=== PATIENT | male | born 1980 | race Two or more races ===

== ENCOUNTER 2025-05-21 20:36 | Inpatient (IN) | payer OTHER ==
[~2025-05-21] VITALS: Ht 172.7 cm; Wt 132.2 kg
--- NOTE | 2025-05-21 20:47 | ECG ---
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
[2025-05-21 21:15] LABS: Hematocrit 47.0 % (41.0-53.0); Hemoglobin 15.9 g/dL (13.5-17.5); Mean Corpuscular Hemoglobin 29.3 pg (28.0-32.0); Mean Corpuscular Volume 86.6 fL (80.0-100.0); Nucleated Red Blood Cells % 0.1 %
[2025-05-21 21:24] LABS: Alanine Aminotransferase 15 U/L (7-40); Albumin 4.2 g/dL (3.2-4.8); Alkaline Phosphatase 110 U/L (46-116); Anion Gap 13 (5-15); BUN/Creatinine Ratio 6.3 (10.0-20.0); Bilirubin, Total 0.4 mg/dL (0.2-1.0); Carbon Dioxide 21 mmol/L (20-31); Sodium 142 mmol/L (136-145); Total Protein 7.5 g/dL (5.7-8.2)
[2025-05-21 21:28] LABS: INR 1.03 (0.9-1.15); Prothrombin Time 10.9 sec (9.3-11.8)
[2025-05-21 21:31] LABS: Blood Urea Nitrogen 6 mg/dL (9-23); Calcium 10.6 mg/dL (8.7-10.4); Chloride 108 mmol/L (98-107); Glucose 111 mg/dL (74-106); Potassium 3.4 mmol/L (3.5-5.1)
--- NOTE | 2025-05-21 21:34 | ED.PDOC ---
GI ASSESSMENT HPI Comments 44-year-old male who came to ER via EMS for abdominal pain. Patient states about an hour prior to arrival, developed sudden-onset epigastric/ upper abdominal pain radiating to his back area, 10/10 intensity. Patient had Colonoscopy yesterday REVIEW OF SYSTEMS: General: No fever, no chills, or fatigue HEENT: No sore throat, no earache, no congestion, no neck pain. Cardiac: No chest pain. No palpitations. Lungs: No shortness of breath, no cough. GI: No nausea, no vomiting, no diarrhea, no constipation, (+) abdominal pain : No dysuria, frequency, or urgency. No hematuria. Musculoskeletal: No joint pain , no joint swelling, no extremity edema. (+) back pain Skin: No rash, no itching. Neuro: No headache, no dizziness, no weakness PHYSICAL EXAM: General: Awake, alert and oriented. Positive acute distress Skin: Skin in warm, dry and intact without rashes or lesions. HEENT: The head is normocephalic and atraumatic. Conjunctivae are clear without exudates or hemorrhage. Sclera is non-icteric. Neck: Normal range of motion. No JVD. Cardiac: Regular rate Respiratory: No signs of respiratory distress. No Stridor. Extremities: Upper and lower extremities are atraumatic in appearance without deformity. Neurological: The patient is awake, alert and oriented to person, place, and time with normal speech. Speech is clear. There is no facial asymmetry. Chief Complaint: Abdominal Pain Time Seen by MD: 20:39 Allergies: Coded Allergies: NO KNOWN ALLERGIES (Unverified , 05/21/25) Mode of Arrival: EMS Past Medical History PAST MEDICAL HISTORY: HTN Surgical History (Other): Colonoscopy Family History Family History: Reviewed,noncontributory to illness Social History Smoker: Non-Smoker Alcohol: Denies ETOH Use Drugs: Denies Drug Use Lives In: Home EKG EKG : Pulse Rate (adult): 55 Cardiac Rhythm: NSR Comments Rule out acute pericarditis Was a procedure done? Was a procedure done?: No GI differential Dx Differential Diagnosis: Aortic dissection, Diverticular disease, Gastritis/PUD, Gastroenteritis, Hernia, Pancreatitis, UTI, Urolithiasis X-Ray, Labs, Meds, VS Vital Signs Date Time Temp Pulse Resp B/P (MAP) Pulse Ox O2 Delivery O2 Flow Rate FiO2 9/18/25 22:42 136/85 05/21/25 22:00 72 12 96 Room Air* 0 21 05/21/25 22:00 72 12 107/86 (93) 96 05/21/25 21:50 62 13 143/87 05/21/25 21:37 69 05/21/25 21:34 55 05/21/25 20:37 55 05/21/25 20:36 97.8 66 26 142/86 97 97.8 Lab Test 05/21/25 21:58 05/21/25 21:49 05/21/25 20:59 05/21/25 20:54 Range/Units Troponin I High Sensitivity 3 L < 3 L </=54 ng/L Urine Color Light-yellow Yellow Urine Clarity Clear Clear Urine pH 7.0 5.0-9.0 Urine Specific [place] 1.036 H 1.001-1.035 Urine Protein Negative Negative Urine Ketones Trace Negative Urine Blood Negative Negative /uL Urine Nitrite Negative Negative Urine Bilirubin Negative Negative Urine Urobilinogen Normal Negative mg/dL Urine Leukocyte Esterase Negative Negative /uL Urine RBC 2 0 - 3 /hpf Urine Microscopic WBC < 1 0-3 /HPF Urine Squamous Epithelial Cells Few <5 /hpf Urine Amorphous Crystals Few None Seen /hpf Urine Bacteria None seen None Seen /hpf Urine Mucus Few None Seen Urine Glucose Normal Normal mg/dL Urine Opiates Screen Neg NEGATIVE Urine Fentanyl Screen Neg NEGATIVE Urine Barbiturates Screen Neg NEGATIVE Urine Phencyclidine Screen Neg NEGATIVE Urine Amphetamines Screen Neg NEGATIVE Urine Benzodiazepines Screen Neg NEGATIVE Urine Cocaine Screen Neg NEGATIVE Urine Cannabinoids Screen Neg NEGATIVE Lactic Acid Level 1.6 0.4-2.0 mmol/L White Blood Count 13.1 H 4.4-10.8 10^3/uL Red Blood Count 5.43 4.5-5.90 10^6/uL Hemoglobin 15.9 13.5-17.5 g/dL Hematocrit 47.0 41.0-53.0 % Mean Corpuscular Volume 86.6 80.0-100.0 fL Mean Corpuscular Hemoglobin 29.3 28.0-32.0 pg Mean Corpuscular Hemoglobin Concent 33.9 32.0-36.0 g/dL Red Cell Distribution Width 13.8 11.8-14.3 % Platelet Count 242 140-450 10^3/uL Mean Platelet Volume 8.8 6.9-10.8 fL Neutrophils (%) (Auto) 61.8 37.0-80.0 % Lymphocytes (%) (Auto) 29.6 10.0-50.0 % Monocytes (%) (Auto) 5.3 0.0-12.0 % Eosinophils (%) (Auto) 2.7 0.0-7.0 % Basophils (%) (Auto) 0.6 0.0-2.0 % Neutrophils # (Auto) 8.1 1.6-8.6 10 ^3/uL Lymphocytes # (Auto) 3.9 0.4-5.4 10 ^3/uL Monocytes # (Auto) 0.7 0-1.3 10 ^3/uL Eosinophils # (Auto) 0.4 0-0.8 10 ^3/uL Basophils # (Auto) 0.1 0-0.2 10 ^3/uL Nucleated Red Blood Cells 0.1 % Prothrombin Time 10.9 9.3-11.8 sec Prothrombin Time INR 1.03 0.9-1.15 Sodium Level 142 136-145 mmol/L Potassium Level 3.4 L 3.5-5.1 mmol/L Chloride Level 108 H 98-107 mmol/L Carbon Dioxide Level 21 20-31 mmol/L Anion Gap 13 5-15 Blood Urea Nitrogen 6 L 9-23 mg/dL Creatinine 0.96 0.700-1.30 mg/dL Glomerular Filtration Rate Calc 101 >90 mL/min BUN/Creatinine Ratio 6.3 L 10.0-20.0 Serum Glucose 111 H 74-106 mg/dL Calcium Level 10.6 H 8.7-10.4 mg/dL Total Bilirubin 0.4 0.2-1.0 mg/dL Aspartate Amino Transferase (AST) 21 13-40 U/L Alanine Aminotransferase (ALT) 15 7-40 U/L Alkaline Phosphatase 110 46-116 U/L B-Type Natriuretic Peptide 12.43 0-100 pg/mL Total Protein 7.5 5.7-8.2 g/dL Albumin 4.2 3.2-4.8 g/dL Lipase 73 H 12-53 U/L Current Medications Medications (Trade) Dose Ordered Sig/Irasema Route Start Time Stop Time Status Last Admin Morphine Sulfate 4 mg ONCE ONCE IV 05/21/25 21:30 05/21/25 21:34 DC 05/21/25 21:50 Ondansetron HCl (Zofran) 4 mg ONCE ONCE IV 05/21/25 21:30 05/21/25 21:34 DC 05/21/25 21:46 Metoclopramide HCl (Reglan Injection) 5 mg ONCE ONCE IV 05/21/25 22:15 05/21/25 22:16 DC 05/21/25 22:25 Ketorolac Tromethamine (Toradol Injection) 15 mg ONCE ONCE IV 05/21/25 22:30 05/21/25 22:31 DC 05/21/25 22:38 Fentanyl Citrate 50 mcg ONCE ONCE IV 05/21/25 22:30 05/21/25 22:31 DC 05/21/25 22:42 Sodium Chloride 1,000 ml @ 1,000 mls/hr Q1H ONCE IV 05/21/25 22:30 05/21/25 23:29 DC 05/21/25 22:38 Piperacillin Sod/ Tazobactam Sod 100 ml @ 100 mls/hr ONCE ONCE IV 05/21/25 23:00 05/21/25 23:59 DC 05/21/25 23:16 Morphine Sulfate 2 mg Q4HPRN PRN IV 05/21/25 23:00 05/22/25 01:52 Potassium Chloride (Klor-Con Tablet) 20 meq ONCE ONCE PO 05/21/25 23:00 05/21/25 23:02 DC 05/21/25 23:16 Sodium Chloride 1,000 ml @ 50 mls/hr Q20H IV 05/21/25 23:00 05/22/25 00:02 PROCEDURE(s): CAPIV - CT CHEST/AB/PL W CON- IV ONLY REASON: r/o dissection/ AAA ORDER NUMBER(s): [id number], ACCESSION NUMBER(s): [id number] CLINICAL HISTORY: r/o dissection/ AAA TECHNIQUE: CT of the chest, abdomen, and pelvis was performed with IV contrast. Coronal and sagittal reformatted images were performed for better depression of the anatomy. This exam was performed according to our departmental dose optimization program. Up-to-date CT equipment and radiation dose reduction techniques are utilized as appropriate. CTDI 19.9 DLP 1684 COMPARISON: None FINDINGS: CHEST: The thoracic aorta is normal in course and caliber. There are no significant atherosclerotic calcifications. There is no evidence for aortic dissection. The heart is normal in size. No pericardial effusion is seen. The opacified pulmonary arterial tree demonstrates no evidence for acute pulmonary embolism. No enlarged mediastinal, hilar, or axillary lymph node is present. The central airways are patent. There is no bronchiectasis. There is no suspicious pulmonary nodule or area of consolidation. There is no pleural effusion present. ABDOMEN/PELVIS: The spleen, pancreas, adrenal glands, liver, right kidney, bladder, and prostate gland are unremarkable. There is possible subtle pericholecystic inflammatory change. There are nonobstructing left renal calculi measuring 13 mm. The abdominal aorta is normal in course and caliber. There are no significant atherosclerotic calcifications. There is no evidence for aortic dissection. There is no free intraperitoneal air or fluid. There is no enlarged abdominal or pelvic lymph node. There is no bowel wall thickening or dilatation. The stomach is distended with ingested material. BONES: No acute osseous abnormality is evident. IMPRESSION: No evidence for acute aortic dissection. No pneumonia. Possible subtle pericholecystic inflammation, raising possibility of cholecystitis. Ultrasound correlation recommended. Nonobstructing left renal calculi measuring up to 13 mm. Time of 1ST Reevaluation: 21:30 Reevaluation 1ST: Unchanged Patient Education/Counseling: Other (Need for admission) Family Education/Counseling: Other (Need for admission) SEPSIS Sepsis Screen Date sepsis recognized/suspect: May 21, 2025 Time Sepsis recognized/suspect: 2035 Recent Procedure: No On Antibiotic Therapy: No Respiratory Rate >20: No Heart Rate >90: No Temp<36 C (96.8 F) or >38.3 C: No SBP <90 or MAP <65 mmHG: No New Acute Mental Status Change: No Is the patient on CPAP, BIPAP,: No Physician Orders Electrocardigram (05/21/25 23:41) Ct Chest/Ab/Pl W Con- Iv Only (05/21/25 20:43) Ceftriaxone 1gm/50ml (Rocephin) (05/22/25 09:00) Metronidazole 500mg/100ml (Flagyl 500mg/ (05/22/25 06:00) Allergies (05/21/25 22:55) Code Status (05/21/25 22:55) Oxygen Per Hour (05/21/25 22:55) Hydrocodone-Acet 5/325mg Tab ([place] 5/32 (05/21/25 23:00) Ondansetron Hcl (Zofran) (05/21/25 23:00) Complete Blood Count (05/22/25 04:00) Comprehensive Metabolic Panel (05/22/25 04:00) Condition: Serious (05/21/25 22:55) Acetaminophen Tablet (Tylenol Tablet) (05/21/25 23:00) Clear Liq Diet (05/22/25 Breakfast) Bedrest With Bathroom Privileg (05/21/25 22:55) Morphine Sulfate Injection (05/21/25 23:00) Sequential Compression Device (05/21/25 ) Sod Chl 0.45% (Sodium Chloride 0.45% Via (05/21/25 23:00) Abdomen Limited (05/22/25 00:01) Vital Signs Date Time Temp Pulse Resp B/P (MAP) Pulse Ox O2 Delivery O2 Flow Rate FiO2 05/21/25 22:42 136/85 05/21/25 22:00 72 12 96 Room Air* 0 21 05/21/25 22:00 72 12 107/86 (93) 96 05/21/25 21:50 62 13 143/87 05/21/25 21:37 69 05/21/25 21:34 55 05/21/25 20:37 55 05/21/25 20:36 97.8 66 26 142/86 97 97.8 Laboratory Tests Test 05/21/25 20:54 05/21/25 20:59 White Blood Count 13.1 10^3/uL (4.4-10.8) H Lactic Acid Level 1.6 mmol/L (0.4-2.0) Medications Medications Dose Ordered Sig/Irasema Route Start Time Stop Time Status Last Admin Dose Admin Fentanyl Citrate 50 mcg ONCE ONCE IV 05/21/25 22:30 05/21/25 22:31 DC 05/21/25 22:42 Ketorolac Tromethamine 15 mg ONCE ONCE IV 05/21/25 22:30 05/21/25 22:31 DC 05/21/25 22:38 Metoclopramide HCl 5 mg ONCE ONCE IV 05/21/25 22:15 05/21/25 22:16 DC 05/21/25 22:25 Morphine Sulfate 2 mg Q4HPRN PRN IV 05/21/25 23:00 05/22/25 01:52 Morphine Sulfate 4 mg ONCE ONCE IV 05/21/25 21:30 05/21/25 21:34 DC 05/21/25 21:50 Ondansetron HCl 4 mg ONCE ONCE IV 05/21/25 21:30 05/21/25 21:34 DC 05/21/25 21:46 Piperacillin Sod/ Tazobactam Sod 100 ml @ 100 mls/hr ONCE ONCE IV 05/21/25 23:00 05/21/25 23:59 DC 05/21/25 23:16 Potassium Chloride 20 meq ONCE ONCE PO 05/21/25 23:00 05/21/25 23:02 DC 05/21/25 23:16 Sodium Chloride 1,000 ml @ 50 mls/hr Q20H IV 05/21/25 23:00 05/22/25 00:02 Sodium Chloride 1,000 ml @ 1,000 mls/hr Q1H ONCE IV 05/21/25 22:30 05/21/25 23:29 DC 05/21/25 22:38 Departure 1 Departure Time of Disposition: 22:29 Impression: Primary Impression: Nephrolithiasis Disposition: ADMITTED INPATIENT Condition: Stable Comments MDM Patient is stabilized in the emergency department Patient admitted to hospitalist service for further treatment, evaluation and monitoring. Extensive evaluation was performed in attempt to identify or rule out: (See differential diagnosis section) The following tests were ordered, and results were reviewed by me and discussed with patient: (See diagnostic results section) I reviewed and agreed with the following test results read by other providers: CT abdomen and pelvis Additional information was gathered from interviewing the following independent historians: EMS personnel Decision regarding hospitalization or escalation of hospital level of care: Risk and benefits of admission for further treatment of patient's condition was considered. Due to patient's current clinical condition, high risk of decline and poor outcome if discharged and need for further inpatient management and monitoring, patient will be admitted to the hospital. Discussed with patient. Drug therapy requiring intensive monitoring for toxicity: IV contrast Parenteral controlled substances: IV morphine, IV fentanyl Critical Care Note Critical Care Time?: No Stability Stability form required: No Heart Score Heart Score: Heart Score Response (Comments) Value History Slightly Suspicious 0 EKG Repolarization Disturb 1 Age <45 0 Risk Factors 1 or 2 risk factors 1 Troponin Normal limit 0 Total 2 I personally scribed for GIANLUCA DIAZ MD ([email or web address]) on 05/21/25 at 21:34. Electronically submitted by Stephane Nolan ([employer]). I personally scribed for GIANLUCA DIAZ MD ([email or web address]) on 05/22/25 at 00:21. Electronically submitted by Stephane Nolan ([employer]). GIANLUCA DIAZ MD May 21, 2025 21:34
[2025-05-21] MEDS: IOHEXOL 350 MG/ML 100ML IJ ONE (21:44)
[2025-05-21] MEDS: ONDANSETRON HCL 4 MG/2 ML VIAL IV ONE (21:46)
--- NOTE | 2025-05-21 21:46 | ECG ---
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
[2025-05-21] MEDS: MORPHINE SULFATE INJ 2 MG/ml SYRG IV ONE (21:50)
[2025-05-21 22:00] VITALS: PULSE 72; RESP 12; O2SAT 96
--- NOTE | 2025-05-21 22:17 | DVH ---
CLINICAL HISTORY: r/o dissection/ AAA TECHNIQUE: CT of the chest, abdomen, and pelvis was performed with IV contrast. Coronal and sagittal reformatted images were performed for better depression of the anatomy. This exam was performed accor ding to our departmental dose optimization program. Up-to-date CT equipment and radiation dose reduct ion techniques are utilized as appropriate. CTDI 19.9 DLP 1684 COMPARISON: None FINDINGS: CHEST: The thoracic aorta is normal in course and caliber. There are no significant atherosclerotic calcific ations. There is no evidence for aortic dissection. The heart is normal in size. No pericardial effusion is seen. The opacified pulmonary arterial tree demonstrates no evidence for acute pulmonary embolism. No enlarged mediastinal, hilar, or axillary lymph node is present. The central airways are patent. There is no bronchiectasis. There is no suspicious pulmonary nodule or area of consolidation. There is no pleural effusion present. ABDOMEN/PELVIS: The spleen, pancreas, adrenal glands, liver, right kidney, bladder, and prostate gland are unremarkab le. There is possible subtle pericholecystic inflammatory change. There are nonobstructing left renal calculi measuring 13 mm. The abdominal aorta is normal in course and caliber. There are no significant atherosclerotic calcifi cations. There is no evidence for aortic dissection. There is no free intraperitoneal air or fluid. There is no enlarged abdominal or pelvic lymph node. There is no bowel wall thickening or dilatation. The stomach is distended with ingested material. BONES: No acute osseous abnormality is evident. IMPRESSION: No evidence for acute aortic dissection. No pneumonia. Possible subtle pericholecystic inflammation, raising possibility of cholecystitis. Ultrasound correl ation recommended. Nonobstructing left renal calculi measuring up to 13 mm.
[2025-05-21 22:20] LABS: Urine Amorphous Crystal FEW /hpf (None Seen); Urine Protein, UAD Negative (Negative)
[2025-05-21 22:24] LABS: Amphetamine Screen, Urine Neg (NEGATIVE); Barbiturate Scree,Urine Neg (NEGATIVE); Benzodiazephine Screen, Urine Neg (NEGATIVE); Cannabinoid Screen, Urine Neg (NEGATIVE); Cocaine Screen, Urine Neg (NEGATIVE); Opiate Scree,Urine Neg (NEGATIVE); Phencyclidine Screen, Urine Neg (NEGATIVE)
[2025-05-21] MEDS: METOCLOPRAMIDE HCL 5MG/ml INJ 2ml VIAL IV ONE (22:25)
[2025-05-21] MEDS: SODIUM CHLORIDE 0.9% 1,000 ML IV ONE (22:38)
[2025-05-21] MEDS: KETOROLAC TROMETH 30 MG/ML 1ML VIAL IV ONE (22:38)
[2025-05-21] MEDS: fentaNYL CITRATE 100 MCG/2 ML VL IV ONE (22:42)
[2025-05-21] MEDS ORDERED: ONDANSETRON HCL 4 MG/2 ML VIAL IV PRN (23:00)
[2025-05-21] MEDS: POTASSIUM CHL 20 Meq TABLET PO ONE (23:16)
[2025-05-21] MEDS: PIPERACILLIN-TAZO 4.5GM 100 ML IV ONE (23:16)
--- NOTE | 2025-05-21 23:57 | DVHHP2 ---
History of Present Illness Reason for Visit: Nephrolithiasis History of Present Illness The patient is a 44-year-old male with past medical history of hypertension who presented to [facility] ED with complaint of abdominal pain. Patient reports he suddenly develop epigastric abdominal pain radiating to his back, rat ing 10/10 numeric scale, getting worse that prompted this visit. Patient reports he had Colonoscopy yesterday. Patient was seen and evaluated in the ED, laboratory data shows WBC 13.1, platelets 242, sodium 142, potassium 3.4, BUN 6, creatinine 0.96, glucose 111, calcium 10.6, troponin 3, lipase 73, blood pressure 136/85, heart rate 72, temperature 97.8 F, O2 saturation 96% on room air. Abdomen/pelvis CT revealing nephrolithiasis. Please see medication orders section in the computer. On my assessment, patient denied chest pain, no headache, no dizziness, no shortness of breaths, no nausea, no vomiting, no fever, no chills. Patient was admitted for further evaluation and medical management. Past Medical History HTN Past Surgical History Colonoscopy Family History Reviewed, noncontributory to the management of this case. Past Social History The patient lives at home, denies smoking, alcohol or illicit drugs abuse. Review of Systems Constitutional: No: Fever, Chills, Sweats, Weakness, Malaise, Other Eyes: No: Pain, Vision change, Conjunctivae inflammation, Eyelid inflammation, Other, Redness ENT: No: Ear pain, Ear discharge, Nose pain, Nose discharge, Nose congestion, Mouth pain, Mouth swelling, Throat pain, Throat swelling, Other Respiratory: No: Cough, Dry, Shortness of breath, SOB with excertion, Wheezing, Hemoptysis, Pleuritic Pain, Sputum, Wheezing, Other Cardiovascular: No: Chest Pain, Palpitations, Orthopnea, Paroxysmal Noc. Dyspnea, Edema, Lt Headedness, Other Gastrointestinal: Abdominal Pain; No: Nausea, Vomiting, Diarrhea, Constipation, Melena, Hematochezia, Other Genitourinary: No Dysuria, No Frequency, No Incontinence, No Hematuria, No Retention, No Other Musculoskeletal: No: other, neck pain, shoulder pain, arm pain, back pain, hand pain, leg pain, foot pain Skin: No: Rash, Lesions, Jaundice, Bruising, Other Neurological: No: Weakness, Numbness, Incoordination, Change in speech, Confusion, Seizures, Other Allergies: Coded Allergies: NO KNOWN ALLERGIES (Unverified , 05/21/25) Medications Current Medications Medications Dose Ordered Sig/Irasema Route Start Time Stop Time Status Last Admin Dose Admin Ceftriaxone Sodium 50 ml @ 100 mls/hr DAILY@09 IV 05/22/25 09:00 Metronidazole 100 ml @ 100 mls/hr Q8HR IV 05/22/25 06:00 Acetaminophen/ Hydrocodone Bitart 1 tab Q4HP PRN PO 05/21/25 23:00 Ondansetron HCl 4 mg Q4HP PRN IV 05/21/25 23:00 Acetaminophen 650 mg Q6HP PRN PO 05/21/25 23:00 Morphine Sulfate 2 mg Q4HPRN PRN IV 05/21/25 23:00 Sodium Chloride 1,000 ml @ 50 mls/hr Q20H IV 05/21/25 23:00 Exam Vital Signs Vital Signs Date Time Temp Pulse Resp B/P (MAP) Pulse Ox O2 Delivery O2 Flow Rate FiO2 05/21/25 22:42 136/85 05/21/25 22:00 72 12 96 Room Air* 0 21 05/21/25 20:36 97.8 97.8 General Appearance: Alert, Oriented X3, Cooperative, No acute distress HEENT: Atraumatic, PERRLA, EOMI, Mucous membr. moist/pink Respiratory: Normal air movement Cardiovascular: Regular rate, Normal S1, Normal S2, No murmurs Abdominal: Normal bowel sounds, Soft, No hepatospenomegaly, No masses, Other (Reports tenderness) Extremities: No clubbing, No cyanosis, No edema, Normal pulses, No tenderness/swelling Skin: No rashes, No significant lesion Neuro: Normal gait, Normal speech, Strength at 5/5 X4 ext, Normal tone, Sensation intact, Cranial nerves 3-12 NL, Reflexes 2+ Psych/Mental Status: Mental status NL, Mood NL Labs/Xrays Labs Test 05/21/25 21:58 05/21/25 21:49 05/21/25 20:59 05/21/25 20:54 Range/Units Troponin I High Sensitivity 3 L </=54 ng/L Urine Color Light-yellow Yellow Urine Clarity Clear Clear Urine pH 7.0 5.0-9.0 Urine Specific [place] 1.036 H 1.001-1.035 Urine Protein Negative Negative Urine Ketones Trace Negative Urine Blood Negative Negative /uL Urine Nitrite Negative Negative Urine Bilirubin Negative Negative Urine Urobilinogen Normal Negative mg/dL Urine Leukocyte Esterase Negative Negative /uL Urine RBC 2 0 - 3 /hpf Urine Microscopic WBC < 1 0-3 /HPF Urine Squamous Epithelial Cells Few <5 /hpf Urine Amorphous Crystals Few None Seen /hpf Urine Bacteria None seen None Seen /hpf Urine Mucus Few None Seen Urine Glucose Normal Normal mg/dL Urine Opiates Screen Neg NEGATIVE Urine Fentanyl Screen Neg NEGATIVE Urine Barbiturates Screen Neg NEGATIVE Urine Phencyclidine Screen Neg NEGATIVE Urine Amphetamines Screen Neg NEGATIVE Urine Benzodiazepines Screen Neg NEGATIVE Urine Cocaine Screen Neg NEGATIVE Urine Cannabinoids Screen Neg NEGATIVE Lactic Acid Level 1.6 0.4-2.0 mmol/L White Blood Count 13.1 H 4.4-10.8 10^3/uL Red Blood Count 5.43 4.5-5.90 10^6/uL Hemoglobin 15.9 13.5-17.5 g/dL Hematocrit 47.0 41.0-53.0 % Mean Corpuscular Volume 86.6 80.0-100.0 fL Mean Corpuscular Hemoglobin 29.3 28.0-32.0 pg Mean Corpuscular Hemoglobin Concent 33.9 32.0-36.0 g/dL Red Cell Distribution Width 13.8 11.8-14.3 % Platelet Count 242 140-450 10^3/uL Mean Platelet Volume 8.8 6.9-10.8 fL Neutrophils (%) (Auto) 61.8 37.0-80.0 % Lymphocytes (%) (Auto) 29.6 10.0-50.0 % Monocytes (%) (Auto) 5.3 0.0-12.0 % Eosinophils (%) (Auto) 2.7 0.0-7.0 % Basophils (%) (Auto) 0.6 0.0-2.0 % Neutrophils # (Auto) 8.1 1.6-8.6 10 ^3/uL Lymphocytes # (Auto) 3.9 0.4-5.4 10 ^3/uL Monocytes # (Auto) 0.7 0-1.3 10 ^3/uL Eosinophils # (Auto) 0.4 0-0.8 10 ^3/uL Basophils # (Auto) 0.1 0-0.2 10 ^3/uL Nucleated Red Blood Cells 0.1 % Prothrombin Time 10.9 9.3-11.8 sec Prothrombin Time INR 1.03 0.9-1.15 Sodium Level 142 136-145 mmol/L Potassium Level 3.4 L 3.5-5.1 mmol/L Chloride Level 108 H 98-107 mmol/L Carbon Dioxide Level 21 20-31 mmol/L Anion Gap 13 5-15 Blood Urea Nitrogen 6 L 9-23 mg/dL Creatinine 0.96 0.700-1.30 mg/dL Glomerular Filtration Rate Calc 101 >90 mL/min BUN/Creatinine Ratio 6.3 L 10.0-20.0 Serum Glucose 111 H 74-106 mg/dL Calcium Level 10.6 H 8.7-10.4 mg/dL Total Bilirubin 0.4 0.2-1.0 mg/dL Aspartate Amino Transferase (AST) 21 13-40 U/L Alanine Aminotransferase (ALT) 15 7-40 U/L Alkaline Phosphatase 110 46-116 U/L B-Type Natriuretic Peptide 12.43 0-100 pg/mL Total Protein 7.5 5.7-8.2 g/dL Albumin 4.2 3.2-4.8 g/dL Lipase 73 H 12-53 U/L PATIENT: VIDHYA DIAZ ACCT: [id number] UNIT: [id number] : 1980 LOC: ER ROOM / BED: / AGE / SEX: 44 / M ADM STATUS: REG ER SERVICE 42 ORDERING PHYSICIAN: GIANLUCA DIAZ MD PROCEDURE(s): CAPIV - CT CHEST/AB/PL W CON- IV ONLY REASON: r/o dissection/ AAA ORDER NUMBER(s): [id number], ACCESSION NUMBER(s): [id number] CLINICAL HISTORY: r/o dissection/ AAA TECHNIQUE: CT of the chest, abdomen, and pelvis was performed with IV contrast. Coronal and sagittal reformatted images were performed for better depression of the anatomy. This exam was performed according to our departmental dose optimization program. Up-to-date CT equipment and radiation dose reduction techniques are utilized as appropriate. CTDI 19.9 DLP 1684 COMPARISON: None FINDINGS: CHEST: The thoracic aorta is normal in course and caliber. There are no significant atherosclerotic calcifications. There is no evidence for aortic dissection. The heart is normal in size. No pericardial effusion is seen. The opacified pulmonary arterial tree demonstrates no evidence for acute pulmonary embolism. No enlarged mediastinal, hilar, or axillary lymph node is present. The central airways are patent. There is no bronchiectasis. There is no suspicious pulmonary nodule or area of consolidation. There is no pleural effusion present. ABDOMEN/PELVIS: The spleen, pancreas, adrenal glands, liver, right kidney, bladder, and prostate gland are unremarkable. There is possible subtle pericholecystic inflammatory change. There are nonobstructing left renal calculi measuring 13 mm. The abdominal aorta is normal in course and caliber. There are no significant atherosclerotic calcifications. There is no evidence for aortic dissection. There is no free intraperitoneal air or fluid. There is no enlarged abdominal or pelvic lymph node. There is no bowel wall thickening or dilatation. The stomach is distended with ingested material. BONES: No acute osseous abnormality is evident. IMPRESSION: No evidence for acute aortic dissection. No pneumonia. Possible subtle pericholecystic inflammation, raising possibility of cholecystitis. Ultrasound correlation recommended. Nonobstructing left renal calculi measuring up to 13 mm. SEPSIS Sepsis Screen Date sepsis recognized/suspect: May 21, 2025 Time Sepsis recognized/suspect: 2035 Recent Procedure: No On Antibiotic Therapy: No Respiratory Rate >20: No Heart Rate >90: No Temp<36 C (96.8 F) or >38.3 C: No SBP <90 or MAP <65 mmHG: No New Acute Mental Status Change: No Is the patient on CPAP, BIPAP,: No Physician Orders Electrocardigram (05/21/25 23:41) Ct Chest/Ab/Pl W Con- Iv Only (05/21/25 20:43) Piperacillin-Tazo 4.5gm (Zosyn 4.5gm/100 (05/21/25 23:00) Ceftriaxone 1gm/50ml (Rocephin) (05/22/25 09:00) Metronidazole 500mg/100ml (Flagyl 500mg/ (05/22/25 06:00) Allergies (05/21/25 22:55) Code Status (05/21/25 22:55) Oxygen Per Hour (05/21/25 22:55) Hydrocodone-Acet 5/325mg Tab ([place] 5/32 (05/21/25 23:00) Ondansetron Hcl (Zofran) (05/21/25 23:00) Complete Blood Count (05/22/25 04:00) Comprehensive Metabolic Panel (05/22/25 04:00) Condition: Serious (05/21/25 22:55) Acetaminophen Tablet (Tylenol Tablet) (05/21/25 23:00) Clear Liq Diet (05/22/25 Breakfast) Bedrest With Bathroom Privileg (05/21/25 22:55) Morphine Sulfate Injection (05/21/25 23:00) Sequential Compression Device (05/21/25 ) Sod Chl 0.45% (Sodium Chloride 0.45% Via (05/21/25 23:00) Abdomen Limited (05/22/25 00:01) Vital Signs Date Time Temp Pulse Resp B/P (MAP) Pulse Ox O2 Delivery O2 Flow Rate FiO2 05/21/25 22:42 136/85 05/21/25 22:00 72 12 96 Room Air* 0 21 05/21/25 22:00 72 12 107/86 (93) 96 05/21/25 21:50 62 13 143/87 05/21/25 21:37 69 05/21/25 21:34 55 05/21/25 20:37 55 05/21/25 20:36 97.8 66 26 142/86 97 97.8 Laboratory Tests Test 05/21/25 20:54 05/21/25 20:59 White Blood Count 13.1 10^3/uL (4.4-10.8) H Lactic Acid Level 1.6 mmol/L (0.4-2.0) Medications Medications Dose Ordered Sig/Irasema Route Start Time Stop Time Status Last Admin Dose Admin Fentanyl Citrate 50 mcg ONCE ONCE IV 05/21/25 22:30 05/21/25 22:31 DC 05/21/25 22:42 50 MCG Ketorolac Tromethamine 15 mg ONCE ONCE IV 05/21/25 22:30 05/21/25 22:31 DC 05/21/25 22:38 15 MG Metoclopramide HCl 5 mg ONCE ONCE IV 05/21/25 22:15 05/21/25 22:16 DC 05/21/25 22:25 5 MG Morphine Sulfate 4 mg ONCE ONCE IV 05/21/25 21:30 05/21/25 21:34 DC 05/21/25 21:50 4 MG Ondansetron HCl 4 mg ONCE ONCE IV 05/21/25 21:30 05/21/25 21:34 DC 05/21/25 21:46 4 MG Piperacillin Sod/ Tazobactam Sod 100 ml @ 100 mls/hr ONCE ONCE IV 05/21/25 23:00 05/21/25 23:59 05/21/25 23:16 100 MLS/HR Potassium Chloride 20 meq ONCE ONCE PO 05/21/25 23:00 05/21/25 23:02 DC 05/21/25 23:16 20 MEQ Sodium Chloride 1,000 ml @ 1,000 mls/hr Q1H ONCE IV 05/21/25 22:30 05/21/25 23:29 DC 05/21/25 22:38 1,000 MLS/HR Assessment/Plan Assessment/Plan Nephrolithiasis Elevated lipase Leukocytosis, unspecified Acute abdominal pain Plan 1. Admit to med surge unit 2. Breathing treatment 3. Pain control management 4. IV antibiotic management 5. Management of fluids and electrolytes 6. Consultation for Urology/hospitalist 7. Diagnostic test abdomen/pelvis CT 8. DVT prophylaxis on SCDs 9. Repeat labs CBC, CMP in a.m. 10.Home medication reviewed and reconciled 11. Continue with current medical management 12. Treatment plan discussed with patient and RN. Patient verbalized understanding. Plan discussed with: Patient, Other (RN) My Orders Orders - MISSY HECK DNP Procedure Category Date Status Time Ceftriaxone 1gm/50ml PHA 05/22/25 In Process (Rocephin) 09:00 Metronidazole PHA 05/22/25 In Process 500mg/100ml (Flagyl 06:00 Allergies TU 05/21/25 In Process 22:55 Code Status CODE 05/21/25 Transmitted 22:55 Oxygen Per Hour RT 05/21/25 Transmitted 22:55 Hydrocodone-Acet PHA 05/21/25 In Process 5/325mg Tab ([place] 23:00 Ondansetron Hcl PHA 05/21/25 In Process (Zofran) 23:00 Complete Blood Count LAB 05/22/25 Verified 04:00 Comprehensive LAB 05/22/25 Verified Metabolic Panel 04:00 Condition: Serious TU 05/21/25 In Process 22:55 Acetaminophen Tablet PHA 05/21/25 In Process (Tylenol Tablet) 23:00 Clear Liq Diet DIET 05/22/25 Transmitted Breakfast Bedrest With Bathroom TU 05/21/25 In Process Privileg 22:55 Morphine Sulfate PHA 05/21/25 In Process Injection 23:00 Sequential TU 05/21/25 In Process Compression Device Sod Chl 0.45% (Sodium PHA 05/21/25 In Process Chloride 0.45% Via 23:00 Abdomen Limited US 05/22/25 Logged 00:01 Problem List: (1) Nephrolithiasis (2) Elevated lipase (3) Leukocytosis, unspecified (4) Acute abdominal pain Date of Service: May 21, 2025 Billing Provider: MISSY HECK DNP Common Visit Codes: [id number] INP/OBS CARE (HIGH) MISSY HECK DNP May 21, 2025 23:57
[2025-05-22] VITALS (9 sets, daily range): BP systolic 108–148; BP diastolic 67–96; PULSE 72–86; RESP 16–19; TEMP 97.6–98.7; O2SAT 94–98
[2025-05-22] MEDS ORDERED: MORPHINE SULFATE INJ 2 MG/ml SYRG IV PRN
[2025-05-22] MEDS ORDERED: NITROGLYCERIN 0.4 MG SL TAB SL PRN
[2025-05-22] MEDS: SOD CHL 0.45% 1,000 ML IV SCH (00:02)
[2025-05-22] MEDS ORDERED: hydrALAZINE HCL 20 MG/ML VL IV PRN (01:00)
--- NOTE | 2025-05-22 01:20 | DVH ---
INDICATION: Rule out cholecystitis TECHNIQUE: Multiple real-time sonographic images were obtained of the right upper quadrant. COMPARISON: None FINDINGS: The liver demonstrates diffusely increased echotexture without focal mass lesions. The live r measures 16.0 cm. Normal hepatopetal portal flow identified. No evidence of pleural effusion or ab dominal ascites. There is no intrahepatic or extrahepatic ductal dilatation. The common duct was not adequately visual ized. The gallbladder is without evidence of stone or sludge. The gallbladder wall is mildly thickened, bob suring 0.5 cm. Negative sonographic rene's sign. The right kidney measures 13.3 cm. The right kidney is normal in contour, size, and shape. The echoge nicity is normal. There is no hydronephrosis. The pancreas is not well visualized due to overlying bowel gas. IMPRESSION: 1. Hepatic steatosis. 2. Mild gallbladder wall thickening, nonspecific. 3. No sonographic evidence of acute cholecystitis.
[2025-05-22] MEDS: MORPHINE SULFATE INJ 2 MG/ml SYRG IV PRN (01:52)
[2025-05-22 04:44] LABS: Hematocrit 45.2 % (41.0-53.0); Hemoglobin 15.5 g/dL (13.5-17.5); Mean Corpuscular Hemoglobin 29.3 pg (28.0-32.0); Mean Corpuscular Volume 85.4 fL (80.0-100.0); Nucleated Red Blood Cells % 0.0 %
[2025-05-22 04:51] LABS: Alanine Aminotransferase 15 U/L (7-40); Albumin 4.2 g/dL (3.2-4.8); Alkaline Phosphatase 112 U/L (46-116); Anion Gap 9 (5-15); BUN/Creatinine Ratio 7.6 (10.0-20.0); Bilirubin, Total 0.4 mg/dL (0.2-1.0); Calcium 10.2 mg/dL (8.7-10.4); Carbon Dioxide 25 mmol/L (20-31); Chloride 106 mmol/L (98-107); Potassium 3.8 mmol/L (3.5-5.1); Sodium 140 mmol/L (136-145); Total Protein 7.3 g/dL (5.7-8.2)
[2025-05-22 04:54] LABS: Blood Urea Nitrogen 7 mg/dL (9-23); Glucose 116 mg/dL (74-106)
[2025-05-22] MEDS: HYDROcodone-ACET 5/325MG TAB PO PRN (05:14)
--- NOTE | 2025-05-22 12:24 | DVHPN2 ---
Reviewed: Care Plan, H&P, Labs, Medications, Previous Orders, Radiology Changes from previous H/P or p: No Changes Eyes: No Pain, No Vision change, No Conjunctivae inflammation, No Eyelid inflammation, No Other, No Redness ENT: No Ear pain, No Ear discharge, No Nose pain, No Nose discharge, No Nose congestion, No Mouth pain, No Mouth swelling, No Throat pain, No Throat swelling, No Other Cardiovascular: No Chest Pain, No Palpitations, No Orthopnea, No Paroxysmal Noc. Dyspnea, No Edema, No Lt Headedness, No Other Respiratory: No Cough, No Dry, No Shortness of breath, No SOB with excertion, No Wheezing, No Hemoptysis, No Pleuritic Pain, No Sputum, No Other Gastrointestinal: No Nausea, No Vomiting; Abdominal Pain; No Diarrhea, No Constipation, No Melena, No Hematochezia, No Other Genitourinary: No Dysuria, No Frequency, No Incontinence, No Hematuria, No Retention, No Other Musculoskeletal: No other, No neck pain, No shoulder pain, No arm pain, No back pain, No hand pain, No leg pain, No foot pain Skin: No Rash, No Lesions, No Jaundice, No Bruising, No Other Objective Vitals Vital Signs Date Time Temp Pulse Resp B/P (MAP) Pulse Ox O2 Delivery O2 Flow Rate FiO2 05/22/25 09:30 74 18 128/80 05/22/25 09:00 97.6 98 97.6 05/22/25 08:00 Room Air* 0 21 Intake/Output Intake and Output 05/22/25 07:00 Intake Total 150 ml Balance 150 ml Intake Oral 50 ml IV Total 100 ml Medications Current Medications Medications Dose Ordered Sig/Irasema Route Start Time Stop Time Status Last Admin Dose Admin Ceftriaxone Sodium 50 ml @ 100 mls/hr DAILY@09 IV 05/22/25 09:00 05/22/25 09:01 100 MLS/HR Metronidazole 100 ml @ 100 mls/hr Q8HR IV 05/22/25 06:00 05/22/25 05:07 100 MLS/HR Acetaminophen/ Hydrocodone Bitart 1 tab Q4HP PRN PO 05/21/25 23:00 05/22/25 05:14 1 TAB Ondansetron HCl 4 mg Q4HP PRN IV 05/21/25 23:00 Acetaminophen 650 mg Q6HP PRN PO 05/21/25 23:00 Morphine Sulfate 2 mg Q4HPRN PRN IV 05/21/25 23:00 05/22/25 08:54 2 MG Sodium Chloride 1,000 ml @ 50 mls/hr Q20H IV 05/21/25 23:00 05/22/25 00:02 50 MLS/HR Nitroglycerin 0.4 mg Q5MINP PRN SL 05/22/25 00:00 Morphine Sulfate 2 mg Q30M PRN IV 05/22/25 00:00 Hydralazine HCl 10 mg Q6HP PRN IV 05/22/25 01:00 Laboratory Results Laboratory Tests 05/22/25 03:30 Chemistry Test 05/21/25 20:54 05/22/25 03:30 Albumin 4.2 g/dL (3.2-4.8) 4.2 g/dL (3.2-4.8) Calcium Level 10.6 mg/dL (8.7-10.4) H 10.2 mg/dL (8.7-10.4) Total Protein 7.5 g/dL (5.7-8.2) 7.3 g/dL (5.7-8.2) Coagulation Test 05/21/25 20:54 Prothrombin Time 10.9 sec (9.3-11.8) Prothrombin Time INR 1.03 (0.9-1.15) Lipid panel Test 05/21/25 20:54 Lipase 73 U/L (12-53) H Cardiac Markers Test 05/21/25 20:54 B-Type Natriuretic Peptide 12.43 pg/mL (0-100) LFT Test 05/21/25 20:54 05/22/25 03:30 Alanine Aminotransferase (ALT) 15 U/L (7-40) 15 U/L (7-40) Alkaline Phosphatase 110 U/L (46-116) 112 U/L (46-116) Aspartate Amino Transferase (AST) 21 U/L (13-40) 19 U/L (13-40) Total Bilirubin 0.4 mg/dL (0.2-1.0) 0.4 mg/dL (0.2-1.0) Urinalysis Test 05/21/25 21:49 Urine Color Light-yellow (Yellow) Urine Clarity Clear (Clear) Urine pH 7.0 (5.0-9.0) Urine Specific [place] 1.036 (1.001-1.035) Urine Protein Negative (Negative) Urine Ketones Trace (Negative) Urine Blood Negative /uL (Negative) Urine Nitrite Negative (Negative) Urine Bilirubin Negative (Negative) Urine Urobilinogen Normal mg/dL (Negative) Urine Leukocyte Esterase Negative /uL (Negative) Urine RBC 2 /hpf (0 - 3) Urine Microscopic WBC < 1 /HPF (0-3) Urine Squamous Epithelial Cells Few /hpf (<5) Urine Amorphous Crystals Few /hpf (None Seen) Urine Bacteria None seen /hpf (None Seen) Urine Mucus Few (None Seen) Urine Glucose Normal mg/dL (Normal) Labs and/or images reviewed: Labs reviewed by me, Image(s) reviewed by me Assessment/Plan Assessment/Plan Acute epigastric abdominal pain Sepsis possibly secondary to cholecystitis or pancreatitis Possible cholecystitis: HIDA scan, consult for surgeon Dr..Perez Luke Flagyl pain medication Acute pancreatitis lipase 73: IV fluids, consult for GI Rule out CBD stone: MRCP Hypertension Acute dehydration: IV fluids Plan discussed with: Patient My Orders Orders - DORI BECKHAM MD Procedure Category Date Status Time Nm Hida Scan NM 05/22/25 Logged 12:11 * Surgical Consult CONS 05/22/25 Transmitted Mrcp Mri MRI 05/22/25 Verified 12:16 * Gi Dvh Erosion Control Coordinator CONS 05/22/25 Verified 12:16 Date of Service: May 22, 2025 Billing Provider: DORI BECKHAM MD Common Visit Codes: [id number] INP/OBS CARE(HIGH) DORI BECKHAM MD May 22, 2025 12:24
--- NOTE | 2025-05-22 13:42 | DVHINCON2 ---
Consultation - Surgical Date Seen: May 23, 2025 Referring Physician Reason for Consultation Possible cholecystitis History of Present Illness History of Present Illness Mr. Moreno is a 44-year-old male presented to the ED due to epigastric/upper abdominal pain that has been going on for the past 3 weeks. States that before this he had never felt this pain before. States that the pain has really not improved much. It was associated with nausea and vomiting. Does not recall any particular foods that trigger the pain. Denies fevers, chills, acholic stools, changes in urinary or stooling habits. Past Medical/Surgical History Past Medical/Surgical History PMH hypertension PSH right hand surgery Family and Social History Family and Social History Noncontributory ETOH/T Ob/drugs denies Allergies and medications Allergies: Coded Allergies: NO KNOWN ALLERGIES (Unverified , 05/21/25) Review of systems Review of Systems: Deferred Examination Vital signs Vital Signs Date Time Temp Pulse Resp B/P (MAP) Pulse Ox O2 Delivery O2 Flow Rate FiO2 05/22/25 13:00 98.7 81 16 126/85 (99) 97 98.7 05/22/25 08:00 Room Air* 0 21 Medications Current Medications Medications (Trade) Dose Ordered Sig/Irasema Route PRN Reason Start Time Stop Time Status Last Admin Ceftriaxone Sodium 50 ml @ 100 mls/hr DAILY@09 IV 05/22/25 09:00 05/22/25 09:01 Metronidazole 100 ml @ 100 mls/hr Q8HR IV 05/22/25 06:00 05/22/25 05:07 Acetaminophen/ Hydrocodone Bitart ([place] 5/325MG Tab) 1 tab Q4HP PRN PO MODERATE PAIN (4-6 PAIN SCALE) 05/21/25 23:00 05/22/25 05:14 Ondansetron HCl (Zofran) 4 mg Q4HP PRN IV NAUSEA / VOMITING 05/21/25 23:00 Acetaminophen (Tylenol Tablet) 650 mg Q6HP PRN PO PAIN SCALE 1-3 OR TEMP>100.4 05/21/25 23:00 Morphine Sulfate 2 mg Q4HPRN PRN IV SEVERE PAIN (7-10 PAIN SCALE) 05/21/25 23:00 05/22/25 08:54 Sodium Chloride 1,000 ml @ 50 mls/hr Q20H IV 05/21/25 23:00 05/22/25 00:02 Nitroglycerin (Ntrostat Sublingual) 0.4 mg Q5MINP PRN SL FOR CHEST PAIN 05/22/25 00:00 Morphine Sulfate 2 mg Q30M PRN IV FOR CHEST PAIN 05/22/25 00:00 Hydralazine HCl (Apresoline Injection) 10 mg Q6HP PRN IV SBP>150 05/22/25 01:00 Laboratory Labs Test 05/22/25 03:30 05/21/25 21:58 05/21/25 21:49 05/21/25 20:59 Range/Units White Blood Count 16.2 H 4.4-10.8 10^3/uL Red Blood Count 5.29 4.5-5.90 10^6/uL Hemoglobin 15.5 13.5-17.5 g/dL Hematocrit 45.2 41.0-53.0 % Mean Corpuscular Volume 85.4 80.0-100.0 fL Mean Corpuscular Hemoglobin 29.3 28.0-32.0 pg Mean Corpuscular Hemoglobin Concent 34.3 32.0-36.0 g/dL Red Cell Distribution Width 14.0 11.8-14.3 % Platelet Count 260 140-450 10^3/uL Mean Platelet Volume 8.9 6.9-10.8 fL Neutrophils (%) (Auto) 86.9 H 37.0-80.0 % Lymphocytes (%) (Auto) 8.7 L 10.0-50.0 % Monocytes (%) (Auto) 4.0 0.0-12.0 % Eosinophils (%) (Auto) 0.2 0.0-7.0 % Basophils (%) (Auto) 0.2 0.0-2.0 % Neutrophils # (Auto) 14.1 H 1.6-8.6 10 ^3/uL Lymphocytes # (Auto) 1.4 0.4-5.4 10 ^3/uL Monocytes # (Auto) 0.6 0-1.3 10 ^3/uL Eosinophils # (Auto) 0 0-0.8 10 ^3/uL Basophils # (Auto) 0 0-0.2 10 ^3/uL Nucleated Red Blood Cells 0.0 % Sodium Level 140 136-145 mmol/L Potassium Level 3.8 3.5-5.1 mmol/L Chloride Level 106 98-107 mmol/L Carbon Dioxide Level 25 20-31 mmol/L Anion Gap 9 5-15 Blood Urea Nitrogen 7 L 9-23 mg/dL Creatinine 0.92 0.700-1.30 mg/dL Glomerular Filtration Rate Calc 106 >90 mL/min BUN/Creatinine Ratio 7.6 L 10.0-20.0 Serum Glucose 116 H 74-106 mg/dL Calcium Level 10.2 8.7-10.4 mg/dL Total Bilirubin 0.4 0.2-1.0 mg/dL Aspartate Amino Transferase (AST) 19 13-40 U/L Alanine Aminotransferase (ALT) 15 7-40 U/L Alkaline Phosphatase 112 46-116 U/L Total Protein 7.3 5.7-8.2 g/dL Albumin 4.2 3.2-4.8 g/dL Troponin I High Sensitivity 3 L </=54 ng/L Urine Color Light-yellow Yellow Urine Clarity Clear Clear Urine pH 7.0 5.0-9.0 Urine Specific [place] 1.036 H 1.001-1.035 Urine Protein Negative Negative Urine Ketones Trace Negative Urine Blood Negative Negative /uL Urine Nitrite Negative Negative Urine Bilirubin Negative Negative Urine Urobilinogen Normal Negative mg/dL Urine Leukocyte Esterase Negative Negative /uL Urine RBC 2 0 - 3 /hpf Urine Microscopic WBC < 1 0-3 /HPF Urine Squamous Epithelial Cells Few <5 /hpf Urine Amorphous Crystals Few None Seen /hpf Urine Bacteria None seen None Seen /hpf Urine Mucus Few None Seen Urine Glucose Normal Normal mg/dL Urine Opiates Screen Neg NEGATIVE Urine Fentanyl Screen Neg NEGATIVE Urine Barbiturates Screen Neg NEGATIVE Urine Phencyclidine Screen Neg NEGATIVE Urine Amphetamines Screen Neg NEGATIVE Urine Benzodiazepines Screen Neg NEGATIVE Urine Cocaine Screen Neg NEGATIVE Urine Cannabinoids Screen Neg NEGATIVE Lactic Acid Level 1.6 0.4-2.0 mmol/L Test 05/21/25 20:54 Range/Units Prothrombin Time 10.9 9.3-11.8 sec Prothrombin Time INR 1.03 0.9-1.15 B-Type Natriuretic Peptide 12.43 0-100 pg/mL Lipase 73 H 12-53 U/L Examination: GENERAL:Normal, HEENT:Normal (No icterus), ABDOMEN:Abnormal (Large pannus, nondistended, soft, depressible, no scars, no hernias, exquisite right upper quadrant tenderness with positive Calderón's sign) Problem List/Assessment/Plan Problems: (1) Acute cholecystitis due to biliary calculus Assessment and Plan Mr. Moreno is a 44-year-old male who presents with acute cholecystitis. Ultrasound did not show any evidence of acute inflammation but it did show stones within the gallbladder wall lumen. Patient also had a MRCP done which was unremarkable for choledocholithiasis but it did show pericholecystic fluid. Additionally a HIDA scan was done yesterday and gallbladder is not seen, indicating acute cholecystitis due to stick duct blockage. Patient will benefit from laparoscopic cholecystectomy, although I explained that given the longevity of the symptoms it may not be safe to perform it at this point and I might have to abort the case, if this were to happen I told him I will be placing a drain in the gallbladder. Procedure, risks, benefits, complications, and alternatives discussed with the patient. He agrees with surgical plan. 1. Booked for laparoscopic cholecystectomy, possible open, possible drain placement 2. NPO, okay for clear liquid diet after the procedure 3. Pain and nausea control 4. A.m. labs ordered CBC, CMP Plan discussed with Plan discussed with: Patient, Spouse Visit Coding Surgery Date of Service if different f: May 23, 2025 Billing Provider: OLYA HILL MD Surgery Visit Codes: 33609 - INP CONSULT <110 MIN OLYA HILL MD May 22, 2025 13:42
--- NOTE | 2025-05-22 14:10 | DVHINCON2 ---
Date of service: May 22, 2025 Referring Physician Shira Sosa MD Reason for Consultation Left renal stone, nonobstructing, 13 mm History of Present Illness 44-year-old male with past medical history of hypertension who presented to [facility] ED with complaint of abdominal pain. Patient reports he suddenly develop epigastric abdominal pain radiating to his back, rating 10/10 numeric scale, getting worse that prompted this visit. Patient reports he had Colonoscopy yesterday. Patient was seen and evaluated in the ED, laboratory data shows WBC 13.1, platelets 242, sodium 142, potassium 3.4, BUN 6, creatinine 0.96, glucose 111, calcium 10.6, troponin 3, lipase 73, blood pressure 136/85, heart rate 72, temperature 97.8 F, O2 saturation 96% on room air. Abdomen/pelvis CT revealing nephrolithiasis. Please see medication orders section in the computer. On my assessment, patient denied chest pain, no headache, no dizziness, no shortness of breaths, no nausea, no vomiting, no fever, no chills. Patient was admitted for further evaluation and medical management. Past Medical History HTN Past Surgical History Colonoscopy Family History: Patient reports no known family medical history. Allergies: Coded Allergies: NO KNOWN ALLERGIES (Unverified , 05/21/25) Current Medications Current Medications Medications (Trade) Dose Ordered Sig/Irasema Route PRN Reason Start Time Stop Time Status Last Admin Ceftriaxone Sodium 50 ml @ 100 mls/hr DAILY@09 IV 05/22/25 09:00 05/22/25 09:01 Metronidazole 100 ml @ 100 mls/hr Q8HR IV 05/22/25 06:00 05/22/25 05:07 Acetaminophen/ Hydrocodone Bitart ([place] 5/325MG Tab) 1 tab Q4HP PRN PO MODERATE PAIN (4-6 PAIN SCALE) 05/21/25 23:00 05/22/25 05:14 Ondansetron HCl (Zofran) 4 mg Q4HP PRN IV NAUSEA / VOMITING 05/21/25 23:00 Acetaminophen (Tylenol Tablet) 650 mg Q6HP PRN PO PAIN SCALE 1-3 OR TEMP>100.4 05/21/25 23:00 Morphine Sulfate 2 mg Q4HPRN PRN IV SEVERE PAIN (7-10 PAIN SCALE) 05/21/25 23:00 05/22/25 08:54 Sodium Chloride 1,000 ml @ 50 mls/hr Q20H IV 05/21/25 23:00 05/22/25 00:02 Nitroglycerin (Ntrostat Sublingual) 0.4 mg Q5MINP PRN SL FOR CHEST PAIN 05/22/25 00:00 Morphine Sulfate 2 mg Q30M PRN IV FOR CHEST PAIN 05/22/25 00:00 Hydralazine HCl (Apresoline Injection) 10 mg Q6HP PRN IV SBP>150 05/22/25 01:00 Review of Systems Constitutional: No: Fever, Chills, Sweats, Weakness, Malaise, Other Eyes: No: Pain, Vision change, Conjunctivae inflammation, Eyelid inflammation, Other, Redness ENT: No: Ear pain, Ear discharge, Nose pain, Nose discharge, Nose congestion, Mouth pain, Mouth swelling, Throat pain, Throat swelling, Other Respiratory: No: Cough, Dry, Shortness of breath, SOB with excertion, Wheezing, Hemoptysis, Pleuritic Pain, Sputum, Wheezing, Other Cardiovascular: No: Chest Pain, Palpitations, Orthopnea, Paroxysmal Noc. Dyspnea, Edema, Lt Headedness, Other Gastrointestinal: Abdominal Pain; No: Nausea, Vomiting, Diarrhea, Constipation, Melena, Hematochezia, Other Genitourinary: No Dysuria, No Frequency, No Incontinence, No Hematuria, No Retention, No Other Musculoskeletal: No: other, neck pain, shoulder pain, arm pain, back pain, hand pain, leg pain, foot pain Skin: No: Rash, Lesions, Jaundice, Bruising, Other Neurological: No: Weakness, Numbness, Incoordination, Change in speech, Confusion, Seizures, Other Allergies: Coded Allergies: NO KNOWN ALLERGIES (Unverified , 05/21/25) Medications Current Medications Medications Dose Ordered Sig/Irasema Route Start Time Stop Time Status Last Admin Dose Admin Ceftriaxone Sodium 50 ml @ 100 mls/hr DAILY@09 IV 05/22/25 09:00 Metronidazole 100 ml @ 100 mls/hr Q8HR IV 05/22/25 06:00 Acetaminophen/ Hydrocodone Bitart 1 tab Q4HP PRN PO 05/21/25 23:00 Ondansetron HCl 4 mg Q4HP PRN IV 05/21/25 23:00 Acetaminophen 650 mg Q6HP PRN PO 05/21/25 23:00 Morphine Sulfate 2 mg Q4HPRN PRN IV 05/21/25 23:00 Sodium Chloride 1,000 ml @ 50 mls/hr Q20H IV 05/21/25 23:00 Vital Signs Vital Signs Date Time Temp Pulse Resp B/P (MAP) Pulse Ox O2 Delivery O2 Flow Rate FiO2 05/22/25 13:00 98.7 81 16 126/85 (99) 97 98.7 05/22/25 08:00 Room Air* 0 21 Physical Exam Vital Signs Date Time Temp Pulse Resp B/P (MAP) Pulse Ox O2 Delivery O2 Flow Rate FiO2 05/21/25 22:42 136/85 05/21/25 22:00 72 12 96 Room Air* 0 21 05/21/25 20:36 97.8 97.8 Patient not at bedside at this time. Labs/Diagnostic Data Labs Test 05/22/25 03:30 05/21/25 21:58 05/21/25 21:49 05/21/25 20:59 Range/Units White Blood Count 16.2 H 4.4-10.8 10^3/uL Red Blood Count 5.29 4.5-5.90 10^6/uL Hemoglobin 15.5 13.5-17.5 g/dL Hematocrit 45.2 41.0-53.0 % Mean Corpuscular Volume 85.4 80.0-100.0 fL Mean Corpuscular Hemoglobin 29.3 28.0-32.0 pg Mean Corpuscular Hemoglobin Concent 34.3 32.0-36.0 g/dL Red Cell Distribution Width 14.0 11.8-14.3 % Platelet Count 260 140-450 10^3/uL Mean Platelet Volume 8.9 6.9-10.8 fL Neutrophils (%) (Auto) 86.9 H 37.0-80.0 % Lymphocytes (%) (Auto) 8.7 L 10.0-50.0 % Monocytes (%) (Auto) 4.0 0.0-12.0 % Eosinophils (%) (Auto) 0.2 0.0-7.0 % Basophils (%) (Auto) 0.2 0.0-2.0 % Neutrophils # (Auto) 14.1 H 1.6-8.6 10 ^3/uL Lymphocytes # (Auto) 1.4 0.4-5.4 10 ^3/uL Monocytes # (Auto) 0.6 0-1.3 10 ^3/uL Eosinophils # (Auto) 0 0-0.8 10 ^3/uL Basophils # (Auto) 0 0-0.2 10 ^3/uL Nucleated Red Blood Cells 0.0 % Sodium Level 140 136-145 mmol/L Potassium Level 3.8 3.5-5.1 mmol/L Chloride Level 106 98-107 mmol/L Carbon Dioxide Level 25 20-31 mmol/L Anion Gap 9 5-15 Blood Urea Nitrogen 7 L 9-23 mg/dL Creatinine 0.92 0.700-1.30 mg/dL Glomerular Filtration Rate Calc 106 >90 mL/min BUN/Creatinine Ratio 7.6 L 10.0-20.0 Serum Glucose 116 H 74-106 mg/dL Calcium Level 10.2 8.7-10.4 mg/dL Total Bilirubin 0.4 0.2-1.0 mg/dL Aspartate Amino Transferase (AST) 19 13-40 U/L Alanine Aminotransferase (ALT) 15 7-40 U/L Alkaline Phosphatase 112 46-116 U/L Total Protein 7.3 5.7-8.2 g/dL Albumin 4.2 3.2-4.8 g/dL Troponin I High Sensitivity 3 L </=54 ng/L Urine Color Light-yellow Yellow Urine Clarity Clear Clear Urine pH 7.0 5.0-9.0 Urine Specific [place] 1.036 H 1.001-1.035 Urine Protein Negative Negative Urine Ketones Trace Negative Urine Blood Negative Negative /uL Urine Nitrite Negative Negative Urine Bilirubin Negative Negative Urine Urobilinogen Normal Negative mg/dL Urine Leukocyte Esterase Negative Negative /uL Urine RBC 2 0 - 3 /hpf Urine Microscopic WBC < 1 0-3 /HPF Urine Squamous Epithelial Cells Few <5 /hpf Urine Amorphous Crystals Few None Seen /hpf Urine Bacteria None seen None Seen /hpf Urine Mucus Few None Seen Urine Glucose Normal Normal mg/dL Urine Opiates Screen Neg NEGATIVE Urine Fentanyl Screen Neg NEGATIVE Urine Barbiturates Screen Neg NEGATIVE Urine Phencyclidine Screen Neg NEGATIVE Urine Amphetamines Screen Neg NEGATIVE Urine Benzodiazepines Screen Neg NEGATIVE Urine Cocaine Screen Neg NEGATIVE Urine Cannabinoids Screen Neg NEGATIVE Lactic Acid Level 1.6 0.4-2.0 mmol/L Test 05/21/25 20:54 Range/Units Prothrombin Time 10.9 9.3-11.8 sec Prothrombin Time INR 1.03 0.9-1.15 B-Type Natriuretic Peptide 12.43 0-100 pg/mL Lipase 73 H 12-53 U/L PATIENT: VIDHYA DIAZ ACCT: [id number] UNIT: [id number] : 1980 LOC: ER ROOM / BED: / AGE / SEX: 44 / M ADM STATUS: REG ER SERVICE 42 ORDERING PHYSICIAN: GIANLUCA DIAZ MD PROCEDURE(s): CAPIV - CT CHEST/AB/PL W CON- IV ONLY REASON: r/o dissection/ AAA ORDER NUMBER(s): [id number], ACCESSION NUMBER(s): [id number] CLINICAL HISTORY: r/o dissection/ AAA TECHNIQUE: CT of the chest, abdomen, and pelvis was performed with IV contrast. Coronal and sagittal reformatted images were performed for better depression of the anatomy. This exam was performed according to our departmental dose optimization program. Up-to-date CT equipment and radiation dose reduction techniques are utilized as appropriate. CTDI 19.9 DLP 1684 COMPARISON: None FINDINGS: CHEST: The thoracic aorta is normal in course and caliber. There are no significant atherosclerotic calcifications. There is no evidence for aortic dissection. The heart is normal in size. No pericardial effusion is seen. The opacified pulmonary arterial tree demonstrates no evidence for acute pulmonary embolism. No enlarged mediastinal, hilar, or axillary lymph node is present. The central airways are patent. There is no bronchiectasis. There is no suspicious pulmonary nodule or area of consolidation. There is no pleural effusion present. ABDOMEN/PELVIS: The spleen, pancreas, adrenal glands, liver, right kidney, bladder, and prostate gland are unremarkable. There is possible subtle pericholecystic inflammatory change. There are nonobstructing left renal calculi measuring 13 mm. The abdominal aorta is normal in course and caliber. There are no significant atherosclerotic calcifications. There is no evidence for aortic dissection. There is no free intraperitoneal air or fluid. There is no enlarged abdominal or pelvic lymph node. There is no bowel wall thickening or dilatation. The stomach is distended with ingested material. BONES: No acute osseous abnormality is evident. IMPRESSION: No evidence for acute aortic dissection. No pneumonia. Possible subtle pericholecystic inflammation, raising possibility of cholecystitis. Ultrasound correlation recommended. Nonobstructing left renal calculi measuring up to 13 mm. ATED BY: KIEL TYSON MD DICTATED DATE/TIME: 05/21/252213 SIGNED BY: KIEL TYSON MD SIGNED DATE/TIME: 05/21/252213 CC: Assessment Nonobstructing left nephrolithiasis measuring up to 13 mm Plan/Recommendation Pain management Outpatient ESWL of left renal stone TBA Plan discussed with: OSIRIS Billy MD May 22, 2025 14:10
[2025-05-22] MEDS: ACETAMINOPHEN 325 MG TAB PO PRN (14:19)
--- NOTE | 2025-05-22 15:21 | DVH ---
PROCEDURE: MRI MRCP MRI Indication: Cholecystitis, pancreatitis, ruled out CBD stone COMPARISON: CT chest abdomen pelvis from 05/22/2025 TECHNIQUE: Multiplanar multisequence images of the abdomen are obtianed per MRCP protocol. FINDINGS: Adrenal glands, spleen unremarkable. 3 mm T2 bright lesion in the pancreatic head region. Pancreatic duct normal in caliber measuring 2 mm. Cholelithiasis. Pericholecystic edema. Normal caliber common bile duct measuring 4 mm. No intrahepatic duct dilatation. No evidence for choledocholithiasis. No T2 hyperintense lesions in the liver. Stomach is partially distended. IMPRESSION: Cholelithiasis and pericholecystic edema, concerning for cholecystitis. Recommend HIDA scan to [facility] characterize. Normal caliber pancreatic duct, common bile duct. No definitive evidence for choledocholithiasis. T2 bright lesion in the pancreatic head measuring 3 mm with differential considerations including cys t, pseudocyst, IPMN, cystic neoplasm. Recommend follow-up MRI abdomen with and without contrast, he creatic mass protocol .
--- NOTE | 2025-05-22 16:54 | DVH ---
Procedure: NV NM HIDA SCAN Exam Date: 05/22/2025 01:07 PM Clinical History: Possible cholecystitis Comparison Study: None Nuclear Medicine Hepatobiliary Scan. Technique: Following the intravenous administration of 6 mCi of technetium 99m labeled Choletec multiple planar abdominal planar images were obtained in anterior projection in 5 minute intervals for45 minutes . Ri ght lateral images were obtained at 4 hours after injection. Findings: The liver appears grossly normal in size. There is no abnormal persistence of the cardiac or blood po ol activity. There is excretion of activity into the small bowel. Impression: There is nonvisualization of the gallbladder suspicious for cystic duct obstruction.
[2025-05-23] VITALS (8 sets, daily range): BP systolic 115–138; BP diastolic 69–83; PULSE 65–89; RESP 12–18; TEMP 97.7–99.5; O2SAT 94–98
--- NOTE | 2025-05-23 12:18 | DVHPN2 ---
Reviewed: Care Plan, H&P, Labs, Medications, Previous Orders, Radiology Changes from previous H/P or p: No Changes Eyes: No Pain, No Vision change, No Conjunctivae inflammation, No Eyelid inflammation, No Other, No Redness ENT: No Ear pain, No Ear discharge, No Nose pain, No Nose discharge, No Nose congestion, No Mouth pain, No Mouth swelling, No Throat pain, No Throat swelling, No Other Cardiovascular: No Chest Pain, No Palpitations, No Orthopnea, No Paroxysmal Noc. Dyspnea, No Edema, No Lt Headedness, No Other Respiratory: No Cough, No Dry, No Shortness of breath, No SOB with excertion, No Wheezing, No Hemoptysis, No Pleuritic Pain, No Sputum, No Other Gastrointestinal: No Nausea, No Vomiting; Abdominal Pain; No Diarrhea, No Constipation, No Melena, No Hematochezia, No Other Genitourinary: No Dysuria, No Frequency, No Incontinence, No Hematuria, No Retention, No Other Musculoskeletal: No other, No neck pain, No shoulder pain, No arm pain, No back pain, No hand pain, No leg pain, No foot pain Skin: No Rash, No Lesions, No Jaundice, No Bruising, No Other Objective Vitals Vital Signs Date Time Temp Pulse Resp B/P (MAP) Pulse Ox O2 Delivery O2 Flow Rate FiO2 05/23/25 09:00 98.5 89 12 126/77 (93) 96 98.5 05/23/25 08:00 Room Air* 0 21 Intake/Output Intake and Output 05/23/25 07:00 Intake Total 1830 ml Balance 1830 ml Intake Oral 1180 ml IV Total 650 ml # Voids 8 Medications Current Medications Medications Dose Ordered Sig/Irasema Route Start Time Stop Time Status Last Admin Dose Admin Ceftriaxone Sodium 50 ml @ 100 mls/hr DAILY@09 IV 05/22/25 09:00 05/23/25 10:01 100 MLS/HR Metronidazole 100 ml @ 100 mls/hr Q8HR IV 05/22/25 06:00 05/23/25 05:43 100 MLS/HR Acetaminophen/ Hydrocodone Bitart 1 tab Q4HP PRN PO 05/21/25 23:00 05/23/25 10:01 1 TAB Ondansetron HCl 4 mg Q4HP PRN IV 05/21/25 23:00 Acetaminophen 650 mg Q6HP PRN PO 05/21/25 23:00 05/22/25 14:19 650 MG Morphine Sulfate 2 mg Q4HPRN PRN IV 05/21/25 23:00 05/22/25 22:40 2 MG Sodium Chloride 1,000 ml @ 50 mls/hr Q20H IV 05/21/25 23:00 05/22/25 18:32 50 MLS/HR Nitroglycerin 0.4 mg Q5MINP PRN SL 05/22/25 00:00 Morphine Sulfate 2 mg Q30M PRN IV 05/22/25 00:00 Hydralazine HCl 10 mg Q6HP PRN IV 05/22/25 01:00 Laboratory Results Laboratory Tests 05/22/25 03:30 Urinalysis Test 05/21/25 21:49 Urine Color Light-yellow (Yellow) Urine Clarity Clear (Clear) Urine pH 7.0 (5.0-9.0) Urine Specific [place] 1.036 (1.001-1.035) Urine Protein Negative (Negative) Urine Ketones Trace (Negative) Urine Blood Negative /uL (Negative) Urine Nitrite Negative (Negative) Urine Bilirubin Negative (Negative) Urine Urobilinogen Normal mg/dL (Negative) Urine Leukocyte Esterase Negative /uL (Negative) Urine RBC 2 /hpf (0 - 3) Urine Microscopic WBC < 1 /HPF (0-3) Urine Squamous Epithelial Cells Few /hpf (<5) Urine Amorphous Crystals Few /hpf (None Seen) Urine Bacteria None seen /hpf (None Seen) Urine Mucus Few (None Seen) Urine Glucose Normal mg/dL (Normal) Labs and/or images reviewed: Labs reviewed by me, Image(s) reviewed by me Assessment/Plan Assessment/Plan Acute epigastric abdominal pain Sepsis possibly secondary to cholecystitis or pancreatitis Possible cholecystitis: HIDA scan cystic duct obstruction, MRCP shows possible acute cholecystitis, consult for surgeon appreciated Rocephin Flagyl pain medication 13 mm nonobstructing left kidney stone: ESWL as an outpatient per urologist Acute pancreatitis lipase 73: IV fluids, consult for GI No CBD stones by MRCP Hypertension Acute dehydration: IV fluids Keep NPO for possible cholecystectomy Plan discussed with: Patient My Orders Orders - DORI BECKHAM MD Procedure Category Date Status Time Nm Hida Scan NM 05/22/25 Resulted 12:11 * Surgical Consult CONS 05/22/25 Transmitted Mrcp Mri MRI 05/22/25 Resulted 12:16 * Gi [facility] Water Quality Analyst CONS 05/22/25 Transmitted 12:16 * Urology Consult CONS 05/22/25 Transmitted 13:06 Date of Service: May 23, 2025 Billing Provider: DORI BECKHAM MD Common Visit Codes: [id number] INP/OBS CARE(HIGH) DORI BECKHAM MD May 23, 2025 12:17
--- NOTE | 2025-05-23 13:16 | DVHINCON2 ---
Date of service: May 22, 2025 Referring Physician Ian Reason for Consultation Abdominal pain History of Present Illness Patient is a 44-year-old male, with a past medical history of hypertension, admitted with abdominal pain, found to have cholecystitis. Patient has mild elevation of lipase. Patient also found to have possible nephrolithiasis. Patient states that the pain was epigastric in nature 10/10 radiating to the back. GI consultation was obtained for evaluation. Patient has surgery pending. Past Medical History As above Past Surgical History None Family History: Patient reports no known family medical history. Family History No gastrointestinal diseases or malignancies Social History No significant tobacco, alcohol or recreational drug use Allergies: Coded Allergies: NO KNOWN ALLERGIES (Unverified , 05/21/25) Review of Systems 12 point review of systems negative other than HPI Vital Signs Vital Signs Date Time Temp Pulse Resp B/P (MAP) Pulse Ox O2 Delivery O2 Flow Rate FiO2 05/23/25 12:50 98.6 75 16 115/69 (84) 95 98.6 05/23/25 08:00 Room Air* 0 21 Physical Exam General: Well-developed well-nourished HEENT: NC/AT EOMI PERRLA O/P clear, no JVD or cervical lymphadenopathy, no scleral icterus Heart: Regular rate and rhythm, no murmurs rubs or gallops Lungs: Clear to auscultation bilaterally, no wheezes rales or rhonchi Abdomen: Soft, nontender, nondistended, no organomegaly, normoactive bowel sounds Extremity: No clubbing cyanosis or edema, no rashes or bruises Neuro: Cranial nerves 2-12 grossly intact, moves all four extremities, no as terixis Labs/Diagnostic Data Labs Test 05/22/25 03:30 05/21/25 21:58 05/21/25 21:49 05/21/25 20:59 Range/Units White Blood Count 16.2 H 4.4-10.8 10^3/uL Red Blood Count 5.29 4.5-5.90 10^6/uL Hemoglobin 15.5 13.5-17.5 g/dL Hematocrit 45.2 41.0-53.0 % Mean Corpuscular Volume 85.4 80.0-100.0 fL Mean Corpuscular Hemoglobin 29.3 28.0-32.0 pg Mean Corpuscular Hemoglobin Concent 34.3 32.0-36.0 g/dL Red Cell Distribution Width 14.0 11.8-14.3 % Platelet Count 260 140-450 10^3/uL Mean Platelet Volume 8.9 6.9-10.8 fL Neutrophils (%) (Auto) 86.9 H 37.0-80.0 % Lymphocytes (%) (Auto) 8.7 L 10.0-50.0 % Monocytes (%) (Auto) 4.0 0.0-12.0 % Eosinophils (%) (Auto) 0.2 0.0-7.0 % Basophils (%) (Auto) 0.2 0.0-2.0 % Neutrophils # (Auto) 14.1 H 1.6-8.6 10 ^3/uL Lymphocytes # (Auto) 1.4 0.4-5.4 10 ^3/uL Monocytes # (Auto) 0.6 0-1.3 10 ^3/uL Eosinophils # (Auto) 0 0-0.8 10 ^3/uL Basophils # (Auto) 0 0-0.2 10 ^3/uL Nucleated Red Blood Cells 0.0 % Sodium Level 140 136-145 mmol/L Potassium Level 3.8 3.5-5.1 mmol/L Chloride Level 106 98-107 mmol/L Carbon Dioxide Level 25 20-31 mmol/L Anion Gap 9 5-15 Blood Urea Nitrogen 7 L 9-23 mg/dL Creatinine 0.92 0.700-1.30 mg/dL Glomerular Filtration Rate Calc 106 >90 mL/min BUN/Creatinine Ratio 7.6 L 10.0-20.0 Serum Glucose 116 H 74-106 mg/dL Calcium Level 10.2 8.7-10.4 mg/dL Total Bilirubin 0.4 0.2-1.0 mg/dL Aspartate Amino Transferase (AST) 19 13-40 U/L Alanine Aminotransferase (ALT) 15 7-40 U/L Alkaline Phosphatase 112 46-116 U/L Total Protein 7.3 5.7-8.2 g/dL Albumin 4.2 3.2-4.8 g/dL Troponin I High Sensitivity 3 L </=54 ng/L Urine Color Light-yellow Yellow Urine Clarity Clear Clear Urine pH 7.0 5.0-9.0 Urine Specific [place] 1.036 H 1.001-1.035 Urine Protein Negative Negative Urine Ketones Trace Negative Urine Blood Negative Negative /uL Urine Nitrite Negative Negative Urine Bilirubin Negative Negative Urine Urobilinogen Normal Negative mg/dL Urine Leukocyte Esterase Negative Negative /uL Urine RBC 2 0 - 3 /hpf Urine Microscopic WBC < 1 0-3 /HPF Urine Squamous Epithelial Cells Few <5 /hpf Urine Amorphous Crystals Few None Seen /hpf Urine Bacteria None seen None Seen /hpf Urine Mucus Few None Seen Urine Glucose Normal Normal mg/dL Urine Opiates Screen Neg NEGATIVE Urine Fentanyl Screen Neg NEGATIVE Urine Barbiturates Screen Neg NEGATIVE Urine Phencyclidine Screen Neg NEGATIVE Urine Amphetamines Screen Neg NEGATIVE Urine Benzodiazepines Screen Neg NEGATIVE Urine Cocaine Screen Neg NEGATIVE Urine Cannabinoids Screen Neg NEGATIVE Lactic Acid Level 1.6 0.4-2.0 mmol/L Test 05/21/25 20:54 Range/Units Prothrombin Time 10.9 9.3-11.8 sec Prothrombin Time INR 1.03 0.9-1.15 B-Type Natriuretic Peptide 12.43 0-100 pg/mL Lipase 73 H 12-53 U/L Assessment 1. Abdominal pain 2. Mild elevation in lipase although no significant pancreatitis seen on imaging 3. Acute cholecystitis Problems(with codes): (1) Nephrolithiasis (2) Acute abdominal pain (3) Acute cholecystitis due to biliary calculus (4) Elevated lipase (5) Leukocytosis, unspecified Plan/Recommendation 1. Surgery, cholecystectomy 2. Follow labs 3. No EGD or ERCP at this time Plan discussed with: Patient CHRISTY ALVARADO MD May 23, 2025 13:16
[2025-05-23] MEDS ORDERED: MIDAZOLAM HCL 2MG/2ML 2ml VIAL (1mg/ml) ONE (15:00)
[2025-05-23] MEDS ORDERED: HYDROmorphone HCL 2 MG/ML VL/or syr ONE (15:00)
[2025-05-23] MEDS ORDERED: fentaNYL CITRATE 100 MCG/2 ML VL ONE (15:00)
[2025-05-23] MEDS ORDERED: LIDOCAINE 2% (LOCAL ANESTH.) PF 5ml SDV ONE (15:01)
[2025-05-23] MEDS ORDERED: KETOROLAC TROMETH 30 MG/ML 1ML VIAL ONE (15:01)
[2025-05-23] MEDS ORDERED: GLYCOPYRROLATE 0.2 MG/ML 1ML VIAL ONE (15:01)
[2025-05-23] MEDS ORDERED: PROPOFOL 10 MG/ML 20 ML IV ONE (15:01)
[2025-05-23] MEDS ORDERED: ROCURONIUM 10MG/ML 10ML VIAL IV ONE (15:01)
[2025-05-23] MEDS ORDERED: ONDANSETRON HCL 4 MG/2 ML VIAL ONE (15:01)
[2025-05-23] MEDS ORDERED: SUGAMMADEX 200mg/2ml Vial (100MG/ML) IV ONE ×2 (15:54)
[2025-05-23] MEDS: BUPIVACAINE 0.5% INJ 50ML VIAL IJ ONE (16:19)
--- NOTE | 2025-05-23 17:00 | DVHOP2 ---
Operative Report - 2 Report Details Date: 05/23/25 Preop Diagnosis: Acute cholecystitis Postop Diagnosis: Acute gangrenous cholecystitis Surgeon: Ye Avila MD Anesthesiologist: Dr. Jain Anesthesia: General Consent: The patient was informed of the risks and benefits of the procedure. These include but are not limited to complications of anesthesia, postoperative infection, incomplete relief of symptoms, recurrence of symptoms, damage to blood vessels, nerves and tendons, deep venous thrombosis, pulmonary embolism and possible need for repeat surgery in the future. Complications: None Estimated Blood Loss: 5 mL Findings: Severely acutely inflamed gallbladder, anterior aspect of the fundus gangrenous, dense omental adhesions to the gallbladder Indications for Surgery: Acute cholecystitis Name of Procedure Performed Laparoscopic cholecystectomy Procedure Details Procedure Details: Upon arrival to the operating room the patient was transferred to the operating table placed in the supine position with arms extended. General endotracheal anesthesia was induced. Time-out was observed. Patient was prepped and draped in the standard sterile surgical fashion with chlorhexidine. I then made a infraumbilical curvilinear incision and carried down to fascia. Caryl clamp was used to grab the umbilical stalk, the stalk was walked down to its base, and once at the base I gained entry into the peritoneal cavity utilizing Paulino technique. I then placed a fascial retention stitch of 0 Vicryl in a [id number] fashion. I then inserted the Paulino cannula and insufflated the cavity to 15 mmHg with toleration. Camera was then inserted, entry site was inspected no injuries noted. The patient was then placed in the reverse Trendelenburg [id number] position. I then placed 3 additional 5 mm trocars at the epigastric area, right midclavicular below the ribs, and the right flank. I then directed my attention to the liver/gallbladder area. The omentum was completely draping the liver, it was easily brought down. Now the gallbladder was visualized but it was completely draped densely with omentum. Segment 3 of the liver was also adhesed with the omentum. I then proceeded to dissect off the omentum from the liver the cautery. I then proceeded to dissect off the omentum from the gallbladder, I did this both bluntly and with electrocautery. At this point the gallbladder was completely visible. It was very inflamed in the anterior tibial wall of the fundus was gangrenous. The gallbladder was also very distended, I then needle decompressed it and 50 mL of thick bile was extracted. I then used a grasper to grasp the fundus of the gallbladder retracting it cephalad and into the right shoulder. A 2nd grasper was used to grasp the infundibulum and retracted laterally. I then proceeded to incise the peritoneum at the inferior border of the gallbladder on either side. I then was able to expose Calot triangle. In the triangle 2 structures were seen cystic artery and cystic duct. Cholesterol angle was fully skeletonized along with the artery and the duct. I then placed 2 proximal and 1 distal 5 mm clip on the artery. I then milked the cystic duct for any stones, none were felt. Then I placed 3 5 mm clips proximal and 1 distal on the duct. Both artery and duct were transected. There was additional posterior cystic artery branch that was clipped and cut. I then dissected the gallbladder off of the liver bed with electrocautery. I only had very minimal bile spillage from a hole in the gallbladder. Gallbladder was then placed in the Endo-Catch bag and extracted from the peritoneal cavity through the umbilical site. I then serially irrigated the right upper quadrant both under and over the liver, and the gallbladder fossa until effluent was clear. I then inspected the liver bed the re was no bleeding. I then inspected the clips they were in place no bleeding or bile drainage. This completed the intraperitoneal portion of the surgery. I then removed the 5 mm trocars under direct vision, no bleeding coming from the abdominal wall. I then allowed the peritoneal cavity to desufflate completely. The fascia at the umbilical site was closed with the previously placed 0 Vicryl suture. All skin sites were closed with 4-0 Monocryl and Dermabond. All counts complete and correct at the end of the procedure. Patient tolerated the procedure well and was transferred to PACU in stable condition. Specimen: Gallbladder and contents Condition Stable Disposition Still a Patient YE HILL MD May 23, 2025 17:00
[2025-05-23] MEDS ORDERED: ONDANSETRON HCL 4 MG/2 ML VIAL IV PRN (17:45)
[2025-05-23] MEDS ORDERED: HYDROmorphone HCL 2 MG/ML VL/or syr IV PRN (17:45)
[2025-05-24] VITALS (8 sets, daily range): BP systolic 98–114; BP diastolic 59–72; PULSE 60–94; RESP 16–20; TEMP 97.2–98; O2SAT 91–98
[2025-05-24 06:31] LABS: Alanine Aminotransferase 16 U/L (7-40); Alkaline Phosphatase 91 U/L (46-116); Calcium 10.2 mg/dL (8.7-10.4); Carbon Dioxide 24 mmol/L (20-31); Chloride 106 mmol/L (98-107)
[2025-05-24 06:32] LABS: Albumin 3.8 g/dL (3.2-4.8); Anion Gap 10 (5-15); BUN/Creatinine Ratio 12.1 (10.0-20.0); Bilirubin, Total 0.7 mg/dL (0.2-1.0); Blood Urea Nitrogen 11 mg/dL (9-23); Potassium 4.2 mmol/L (3.5-5.1); Sodium 140 mmol/L (136-145); Total Protein 6.7 g/dL (5.7-8.2)
[2025-05-24 06:38] LABS: Hematocrit 42.4 % (41.0-53.0); Hemoglobin 14.8 g/dL (13.5-17.5); Mean Corpuscular Hemoglobin 30.1 pg (28.0-32.0); Mean Corpuscular Volume 86.0 fL (80.0-100.0); Nucleated Red Blood Cells % 0.0 %
[2025-05-24 06:44] LABS: Glucose 114 mg/dL (74-106)
[2025-05-24] MEDS: HYDROcodone-ACET 10/325MG TAB PO PRN (10:57)
[2025-05-24] MEDS: POLYETHYLENE GLYCOL 17 GM PWDR PO SCH (10:58)
--- NOTE | 2025-05-24 11:23 | DVHPN2 ---
Progress Note - Surgical Date Seen: May 24, 2025 Post op day Post op day: 1 Subjective Patient reports: Feels better (Feeling better this morning, no abdominal pain complaints, tolerated diet) Review of Systems: Deferred (ter.) Objective Vital signs Vital Sign Date Time Temp Pulse Resp B/P (MAP) Pulse Ox O2 Delivery O2 Flow Rate FiO2 05/24/25 09:00 97.6 75 16 108/59 (75) 95 97.6 05/23/25 20:00 Room Air* 0 21 Total Intake and Output 05/23/25 05/23/25 05/24/25 15:00 23:00 07:00 Intake Total 50 ml 0 ml 300 ml Balance 50 ml 0 ml 300 ml Medications Current Medications Medications Dose Ordered Sig/Irasema Route Start Time Stop Time Status Last Admin Dose Admin Ceftriaxone Sodium 50 ml @ 100 mls/hr DAILY@09 IV 05/22/25 09:00 05/24/25 10:58 100 MLS/HR Metronidazole 100 ml @ 100 mls/hr Q8HR IV 05/22/25 06:00 05/24/25 05:27 100 MLS/HR Acetaminophen/ Hydrocodone Bitart 1 tab Q4HP PRN PO 05/21/25 23:00 05/23/25 20:33 1 TAB Ondansetron HCl 4 mg Q4HP PRN IV 05/21/25 23:00 Acetaminophen 650 mg Q6HP PRN PO 05/21/25 23:00 05/22/25 14:19 650 MG Morphine Sulfate 2 mg Q4HPRN PRN IV 05/21/25 23:00 Hold 05/22/25 22:40 2 MG Sodium Chloride 1,000 ml @ 50 mls/hr Q20H IV 05/21/25 23:00 05/22/25 18:32 50 MLS/HR Nitroglycerin 0.4 mg Q5MINP PRN SL 05/22/25 00:00 Morphine Sulfate 2 mg Q30M PRN IV 05/22/25 00:00 Hydralazine HCl 10 mg Q6HP PRN IV 05/22/25 01:00 Acetaminophen/ Hydrocodone Bitart 1 tab Q6HP PRN PO 05/23/25 17:00 05/24/25 10:57 1 TAB Polyethylene Glycol 17 gm DAILY PO 05/24/25 10:00 05/24/25 10:58 17 GM Laboratory Laboratory Tests 05/24/25 05:36 Test 05/24/25 05:36 Range/Units Serum Glucose 114 H 74-106 mg/dL Examination: GENERAL:Normal, HEENT:Normal (No icterus), ABDOMEN:Normal (Nondistended, incisions with skin glue in place, umbilical incision with some ecchymosis inferiorly, all incisions without any surrounding signs of infection, very mild right upper quadrant tenderness, no rebound, no guarding) Labs and/or images reviewed: Labs reviewed by me (Leukocytosis started to downtrend 15.8 from 16.2, no elevation in bilirubin level) Problem List/Assessment/Plan Assessment and Plan Mr. Moreno is a 44-year-old male who presented with the acute cholecystitis. He is currently postop day 1 from laparoscopic cholecystectomy. Patient is doing very well, no abdominal pain complaints, tolerating diet, and ambulating. From surgical standpoint patient is cleared for discharge. 1. Low-fat diet 2. Follow up with Dr. Lepe at surgery Clinic in 2 weeks post discharge 3.: Home pain regimen: Baseline pain control with Tylenol and or ibuprofen (follow plant accountant's recommendation); [place] 5-325 mg p.o. every 6 hours p.r.n. pain severe 4. MiraLax 1 packet daily for 10 days 5. No heavy lifting over 10 lb for 6-8 weeks 6. May shower today, but no bathing or swimming for the next 2 weeks My Orders My Orders Orders - OLYA HILL MD Procedure Category Date Status Time Obtain Consent For: ORDERS 05/23/25 Transmitted 12:13 Obtain Consent For TU 05/23/25 In Process Anesthesia 12:13 Bupivacaine Hcl PHA 05/23/25 In Process (Sensorcaine) 16:19 Clear Liq Diet DIET 05/23/25 Transmitted Dinner Hydrocodone-Acet PHA 05/23/25 In Process 10/325mg Tab ([place] 17:00 Polyethylene Glycol PHA 05/24/25 In Process 17g Powder (Miralax 10:00 Plan discussed with Plan discussed with: Patient, Spouse Visit Coding Surgery Date of Service if different f: May 24, 2025 Billing Provider: OLYA HILL MD Surgery Visit Codes: [id number] INP/OBS CARE(HIGH) OLYA HILL MD May 24, 2025 11:23
--- NOTE | 2025-05-24 13:13 | DVHPN2 ---
Reviewed: Care Plan, H&P, Labs, Medications, Previous Orders, Radiology Changes from previous H/P or p: No Changes Eyes: No Pain, No Vision change, No Conjunctivae inflammation, No Eyelid inflammation, No Other, No Redness ENT: No Ear pain, No Ear discharge, No Nose pain, No Nose discharge, No Nose congestion, No Mouth pain, No Mouth swelling, No Throat pain, No Throat swelling, No Other Cardiovascular: No Chest Pain, No Palpitations, No Orthopnea, No Paroxysmal Noc. Dyspnea, No Edema, No Lt Headedness, No Other Respiratory: No Cough, No Dry, No Shortness of breath, No SOB with excertion, No Wheezing, No Hemoptysis, No Pleuritic Pain, No Sputum, No Other Gastrointestinal: No Nausea, No Vomiting; Abdominal Pain; No Diarrhea, No Constipation, No Melena, No Hematochezia, No Other Genitourinary: No Dysuria, No Frequency, No Incontinence, No Hematuria, No Retention, No Other Musculoskeletal: No other, No neck pain, No shoulder pain, No arm pain, No back pain, No hand pain, No leg pain, No foot pain Skin: No Rash, No Lesions, No Jaundice, No Bruising, No Other Objective Vitals Vital Signs Date Time Temp Pulse Resp B/P (MAP) Pulse Ox O2 Delivery O2 Flow Rate FiO2 05/24/25 09:00 97.6 75 16 108/59 (75) 95 97.6 05/24/25 08:00 Room Air* 0 21 Intake/Output Intake and Output 05/24/25 07:00 Intake Total 350 ml Balance 350 ml Intake Oral 300 ml IV Total 50 ml # Voids 1 Medications Current Medications Medications Dose Ordered Sig/Irasema Route Start Time Stop Time Status Last Admin Dose Admin Ceftriaxone Sodium 50 ml @ 100 mls/hr DAILY@09 IV 05/22/25 09:00 05/24/25 10:58 100 MLS/HR Metronidazole 100 ml @ 100 mls/hr Q8HR IV 05/22/25 06:00 05/24/25 05:27 100 MLS/HR Acetaminophen/ Hydrocodone Bitart 1 tab Q4HP PRN PO 05/21/25 23:00 05/23/25 20:33 1 TAB Ondansetron HCl 4 mg Q4HP PRN IV 05/21/25 23:00 Acetaminophen 650 mg Q6HP PRN PO 05/21/25 23:00 05/22/25 14:19 650 MG Morphine Sulfate 2 mg Q4HPRN PRN IV 05/21/25 23:00 Hold 05/22/25 22:40 2 MG Sodium Chloride 1,000 ml @ 50 mls/hr Q20H IV 05/21/25 23:00 05/22/25 18:32 50 MLS/HR Nitroglycerin 0.4 mg Q5MINP PRN SL 05/22/25 00:00 Morphine Sulfate 2 mg Q30M PRN IV 05/22/25 00:00 Hydralazine HCl 10 mg Q6HP PRN IV 05/22/25 01:00 Acetaminophen/ Hydrocodone Bitart 1 tab Q6HP PRN PO 05/23/25 17:00 05/24/25 10:57 1 TAB Polyethylene Glycol 17 gm DAILY PO 05/24/25 10:00 05/24/25 10:58 17 GM Laboratory Results Laboratory Tests 05/24/25 05:36 Chemistry Test 05/24/25 05:36 Albumin 3.8 g/dL (3.2-4.8) Calcium Level 10.2 mg/dL (8.7-10.4) Total Protein 6.7 g/dL (5.7-8.2) LFT Test 05/24/25 05:36 Alanine Aminotransferase (ALT) 16 U/L (7-40) Alkaline Phosphatase 91 U/L (46-116) Aspartate Amino Transferase (AST) 18 U/L (13-40) Total Bilirubin 0.7 mg/dL (0.2-1.0) Urinalysis Test 05/21/25 21:49 Urine Color Light-yellow (Yellow) Urine Clarity Clear (Clear) Urine pH 7.0 (5.0-9.0) Urine Specific [place] 1.036 (1.001-1.035) Urine Protein Negative (Negative) Urine Ketones Trace (Negative) Urine Blood Negative /uL (Negative) Urine Nitrite Negative (Negative) Urine Bilirubin Negative (Negative) Urine Urobilinogen Normal mg/dL (Negative) Urine Leukocyte Esterase Negative /uL (Negative) Urine RBC 2 /hpf (0 - 3) Urine Microscopic WBC < 1 /HPF (0-3) Urine Squamous Epithelial Cells Few /hpf (<5) Urine Amorphous Crystals Few /hpf (None Seen) Urine Bacteria None seen /hpf (None Seen) Urine Mucus Few (None Seen) Urine Glucose Normal mg/dL (Normal) Labs and/or images reviewed: Labs reviewed by me, Image(s) reviewed by me Assessment/Plan Assessment/Plan Acute epigastric abdominal pain Sepsis possibly secondary to cholecystitis or pancreatitis Possible cholecystitis: HIDA scan cystic duct obstruction, MRCP shows possible acute cholecystitis, consult for surgeon appreciated Rocephin Flagyl pain medication Status post lap felicita by Dr. 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
--- NOTE | 2025-05-24 21:53 | DVHPN2 ---
Progress Note - Dictate Date Seen: May 24, 2025 Medical Necessity Reason Pt with a Central, PICC or Fol: No Subjective Patient is feeling better No nausea vomiting or abdominal pain He is postop day 1. S/P lap cholecystectomy vital signs Vital Sign Date Time Temp Pulse Resp B/P (MAP) Pulse Ox O2 Delivery O2 Flow Rate FiO2 05/24/25 21:00 98.0 74 18 106/72 (83) 91 98.0 05/24/25 08:00 Room Air* 0 21 Total Intake and Output 05/23/25 05/23/25 05/24/25 15:00 23:00 07:00 Intake Total 50 ml 0 ml 300 ml Balance 50 ml 0 ml 300 ml medications Current Medications Medications Dose Ordered Sig/Irasema Route Start Time Stop Time Status Last Admin Dose Admin Ceftriaxone Sodium 50 ml @ 100 mls/hr DAILY@09 IV 05/22/25 09:00 05/24/25 10:58 100 MLS/HR Metronidazole 100 ml @ 100 mls/hr Q8HR IV 05/22/25 06:00 05/24/25 21:30 100 MLS/HR Acetaminophen/ Hydrocodone Bitart 1 tab Q4HP PRN PO 05/21/25 23:00 05/23/25 20:33 1 TAB Ondansetron HCl 4 mg Q4HP PRN IV 05/21/25 23:00 Acetaminophen 650 mg Q6HP PRN PO 05/21/25 23:00 05/22/25 14:19 650 MG Morphine Sulfate 2 mg Q4HPRN PRN IV 05/21/25 23:00 Hold 05/22/25 22:40 2 MG Sodium Chloride 1,000 ml @ 50 mls/hr Q20H IV 05/21/25 23:00 05/22/25 18:32 50 MLS/HR Nitroglycerin 0.4 mg Q5MINP PRN SL 05/22/25 00:00 Morphine Sulfate 2 mg Q30M PRN IV 05/22/25 00:00 Hydralazine HCl 10 mg Q6HP PRN IV 05/22/25 01:00 Acetaminophen/ Hydrocodone Bitart 1 tab Q6HP PRN PO 05/23/25 17:00 05/24/25 21:31 1 TAB Polyethylene Glycol 17 gm DAILY PO 05/24/25 10:00 9/21/25 10:58 17 GM objective Examination: GENERAL:Normal, HEENT:Normal (No icterus), ABDOMEN:Normal (Nondistended, incisions with skin glue in place, umbilical incision with some ecchymosis inferiorly, all incisions without any surrounding signs of infection, very mild right upper quadrant tenderness, no rebound, no guarding) laboratory and microbiology Laboratory Tests 05/24/25 05:36 Test 05/24/25 05:36 Range/Units Serum Glucose 114 H 74-106 mg/dL Problems(with codes): (1) Acute cholecystitis due to biliary calculus (2) Elevated lipase (3) Leukocytosis, unspecified (4) Acute abdominal pain Prognosis Plan IV fluids, IV antibiotics Pain control Advance diet as tolerated Acute pancreatitis lipase 73 trending down No CBD stones by MRCP 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, MRI abdomen with and without contrast pancreatic mass protocol will be ordered tomorrow Hypertension Check [place] 19-9 level Dietary Evaluation Review Recommendations by RD: Dietary education by RD Comments: 1) Encourage optimal PO intake 2) Advance to cardiac diet wehn medically feasible 3) Refer to outpatient RD for weight management 4) Follow-up with gastroenterology, cardiology, and urology 5) Continue to monitor I&O, labs, and skin integrity Expected Outcomes/Goals: 1) appetite and labs to improve 2) diet to advance 3) gradual wt loss 4) f/u in 3-5 days Plan discussed with: Patient, Spouse FORD RODRIGUEZ MD May 24, 2025 21:53
[2025-05-25] VITALS (8 sets, daily range): BP systolic 116–131; BP diastolic 70–81; PULSE 71–80; RESP 12–20; TEMP 97.2–98.1; O2SAT 93–98
--- NOTE | 2025-05-25 13:34 | DVHPN2 ---
Reviewed: Care Plan, H&P, Labs, Medications, Previous Orders, Radiology Changes from previous H/P or p: No Changes Eyes: No Pain, No Vision change, No Conjunctivae inflammation, No Eyelid inflammation, No Other, No Redness ENT: No Ear pain, No Ear discharge, No Nose pain, No Nose discharge, No Nose congestion, No Mouth pain, No Mouth swelling, No Throat pain, No Throat swelling, No Other Cardiovascular: No Chest Pain, No Palpitations, No Orthopnea, No Paroxysmal Noc. Dyspnea, No Edema, No Lt Headedness, No Other Respiratory: No Cough, No Dry, No Shortness of breath, No SOB with excertion, No Wheezing, No Hemoptysis, No Pleuritic Pain, No Sputum, No Other Gastrointestinal: No Nausea, No Vomiting; Abdominal Pain; No Diarrhea, No Constipation, No Melena, No Hematochezia, No Other Genitourinary: No Dysuria, No Frequency, No Incontinence, No Hematuria, No Retention, No Other Musculoskeletal: No other, No neck pain, No shoulder pain, No arm pain, No back pain, No hand pain, No leg pain, No foot pain Skin: No Rash, No Lesions, No Jaundice, No Bruising, No Other Objective Vitals Vital Signs Date Time Temp Pulse Resp B/P (MAP) Pulse Ox O2 Delivery O2 Flow Rate FiO2 05/25/25 12:42 97.8 73 18 124/81 (95) 94 97.8 05/25/25 08:00 Room Air* 0 21 Intake/Output Intake and Output 05/25/25 07:00 Intake Total 1678 ml Balance 1678 ml Intake Oral 1478 ml IV Total 200 ml # Voids 5 Medications Current Medications Medications Dose Ordered Sig/Irasema Route Start Time Stop Time Status Last Admin Dose Admin Ceftriaxone Sodium 50 ml @ 100 mls/hr DAILY@09 IV 05/22/25 09:00 05/25/25 09:46 100 MLS/HR Metronidazole 100 ml @ 100 mls/hr Q8HR IV 05/22/25 06:00 05/25/25 05:46 100 MLS/HR Acetaminophen/ Hydrocodone Bitart 1 tab Q4HP PRN PO 05/21/25 23:00 05/23/25 20:33 1 TAB Ondansetron HCl 4 mg Q4HP PRN IV 05/21/25 23:00 Acetaminophen 650 mg Q6HP PRN PO 05/21/25 23:00 05/22/25 14:19 650 MG Morphine Sulfate 2 mg Q4HPRN PRN IV 05/21/25 23:00 Hold 05/22/25 22:40 2 MG Sodium Chloride 1,000 ml @ 50 mls/hr Q20H IV 05/21/25 23:00 05/22/25 18:32 50 MLS/HR Nitroglycerin 0.4 mg Q5MINP PRN SL 05/22/25 00:00 Morphine Sulfate 2 mg Q30M PRN IV 05/22/25 00:00 Hydralazine HCl 10 mg Q6HP PRN IV 05/22/25 01:00 Acetaminophen/ Hydrocodone Bitart 1 tab Q6HP PRN PO 05/23/25 17:00 05/25/25 09:46 1 TAB Polyethylene Glycol 17 gm DAILY PO 05/24/25 10:00 05/25/25 09:46 17 GM Laboratory Results Laboratory Tests 05/24/25 05:36 Urinalysis Test 05/21/25 21:49 Urine Color Light-yellow (Yellow) Urine Clarity Clear (Clear) Urine pH 7.0 (5.0-9.0) Urine Specific [place] 1.036 (1.001-1.035) Urine Protein Negative (Negative) Urine Ketones Trace (Negative) Urine Blood Negative /uL (Negative) Urine Nitrite Negative (Negative) Urine Bilirubin Negative (Negative) Urine Urobilinogen Normal mg/dL (Negative) Urine Leukocyte Esterase Negative /uL (Negative) Urine RBC 2 /hpf (0 - 3) Urine Microscopic WBC < 1 /HPF (0-3) Urine Squamous Epithelial Cells Few /hpf (<5) Urine Amorphous Crystals Few /hpf (None Seen) Urine Bacteria None seen /hpf (None Seen) Urine Mucus Few (None Seen) Urine Glucose Normal mg/dL (Normal) Labs and/or images reviewed: Labs reviewed by me, Image(s) reviewed by me Assessment/Plan Assessment/Plan Acute epigastric abdominal pain Sepsis possibly secondary to acute cholecystitis Acute cholecystitis status post lap felicita by Dr. Lepe on 05/23/2025 Status post lap felicita by Dr. Lepe on 05/23/25 13 mm nonobstructing left kidney stone: ESWL as an outpatient per urologist Acute pancreatitis lipase 73: IV fluids, consult for GI No CBD stones by MRCP 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, MRI abdomen with and without contrast pancreatic mass protocol ordered Hypertension Acute dehydration: IV fluids Plan discussed with: Patient Date of Service: May 25, 2025 Billing Provider: DORI BECKHAM MD Common Visit Codes: [id number] INP/OBS CARE(HIGH) DORI BECKHAM MD May 25, 2025 13:34
--- NOTE | 2025-05-25 13:35 | DVHPN2 ---
Progress Note - Dictate Date Seen: May 25, 2025 Medical Necessity Reason Pt with a Central, PICC or Fol: No Subjective Mild postop abdominal pain Postop day 2. S/P laparoscopic cholecystectomy No nausea vomiting, tolerating soft diet vital signs Vital Sign Date Time Temp Pulse Resp B/P (MAP) Pulse Ox O2 Delivery O2 Flow Rate FiO2 05/25/25 12:42 97.8 73 18 124/81 (95) 94 97.8 05/25/25 08:00 Room Air* 0 21 Total Intake and Output 05/24/25 05/24/25 05/25/25 15:00 23:00 07:00 Intake Total 50 ml 800 ml 828 ml Balance 50 ml 800 ml 828 ml medications Current Medications Medications Dose Ordered Sig/Irasema Route Start Time Stop Time Status Last Admin Dose Admin Ceftriaxone Sodium 50 ml @ 100 mls/hr DAILY@09 IV 05/22/25 09:00 05/25/25 09:46 100 MLS/HR Metronidazole 100 ml @ 100 mls/hr Q8HR IV 05/22/25 06:00 05/25/25 05:46 100 MLS/HR Acetaminophen/ Hydrocodone Bitart 1 tab Q4HP PRN PO 05/21/25 23:00 05/23/25 20:33 1 TAB Ondansetron HCl 4 mg Q4HP PRN IV 05/21/25 23:00 Acetaminophen 650 mg Q6HP PRN PO 05/21/25 23:00 05/22/25 14:19 650 MG Morphine Sulfate 2 mg Q4HPRN PRN IV 05/21/25 23:00 Hold 05/22/25 22:40 2 MG Sodium Chloride 1,000 ml @ 50 mls/hr Q20H IV 05/21/25 23:00 05/22/25 18:32 50 MLS/HR Nitroglycerin 0.4 mg Q5MINP PRN SL 05/22/25 00:00 Morphine Sulfate 2 mg Q30M PRN IV 05/22/25 00:00 Hydralazine HCl 10 mg Q6HP PRN IV 05/22/25 01:00 Acetaminophen/ Hydrocodone Bitart 1 tab Q6HP PRN PO 05/23/25 17:00 05/25/25 09:46 1 TAB Polyethylene Glycol 17 gm DAILY PO 05/24/25 10:00 05/25/25 09:46 17 GM objective Examination: GENERAL:Normal, HEENT:Normal (No icterus), ABDOMEN:Normal (Nondistended, incisions with skin glue in place, umbilical incision with some ecchymosis inferiorly, all incisions without any surrounding signs of infection, very mild right upper quadrant tenderness, no rebound, no guarding) laboratory and microbiology Laboratory Tests 05/24/25 05:36 Test 05/24/25 05:36 Range/Units Serum Glucose 114 H 74-106 mg/dL Problems(with codes): (1) Acute cholecystitis due to biliary calculus (2) Elevated lipase (3) Leukocytosis, unspecified Prognosis Plan Advance diet as tolerated Discharge planning as per hospitalist Outpatient follow up with GI Services for any ongoing symptoms Once again thank you for allowing me to participate in the care of this patient Dietary Evaluation Review Recommendations by RD: Dietary education by RD Comments: 1) Encourage optimal PO intake 2) Advance to cardiac diet wehn medically feasible 3) Refer to outpatient RD for weight management 4) Follow-up with gastroenterology, cardiology, and urology 5) Continue to monitor I&O, labs, and skin integrity Expected Outcomes/Goals: 1) appetite and labs to improve 2) diet to advance 3) gradual wt loss 4) f/u in 3-5 days Plan discussed with: Patient FORD RODRIGUEZ MD May 25, 2025 13:35
--- NOTE | 2025-05-25 16:03 | DVH ---
[id number] MRI MRI ABDOMEN W AND WO Attending Name: DORI BECKHAM COMPARISON: CT chest abdomen and pelvis done 05/21/2025 MR CP abdomen done 05/22/2025 INDICATION: r/o pancreas mass TECHNIQUE: MRCP was performed without the use of intravenous contrast using a MRI imaging system. 12 cc Clariscan were given IV FINDINGS: Visualized lower thorax: Limited imaging of the thorax demonstrates no suspicious pleural or parenchy mal disease. Liver: Normal in morphology and signal intensity. Gallbladder: No evidence of cholelithiasis or gallbladder wall thickening. Biliary system: There is no intrahepatic or extrahepatic bile duct dilatation. No filling defect to s uggest choledocholithiasis. Spleen: Normal in morphology and signal intensity. Pancreas: Normal in morphology and signal intensity. There is a 2 mm cystic lesion in the pancreatic head. No dilatation of the pancreatic duct Adrenal glands: Normal in morphology and signal intensity. Kidneys: The kidneys are symmetric in size and appearance. No hydronephrosis. Urinary tract: No renal masses or hydronephrosis. The included ureters, as visualized, are normal in course and caliber. GI tract: The included portions of the bowel are within normal limits. Lymph nodes: No enlarged lymph nodes. Peritoneum: No ascites. Musculoskeletal: The bone marrow signal intensity is within normal limits. IMPRESSION: 1. 2 mm cystic lesion in the pancreatic head less well seen than on prior MRCP. I favor this represe nting a benign lesion probably either IPMN or simple cyst. 6-12 month follow-up recommended. No panc reatic ductal dilatation No intra or extra hepatic biliary ductal dilatation. No MRI evidence of choledocholithiasis.
[2025-05-26 01:00] VITALS: BP 116/86; PULSE 67; RESP 20; TEMP 97.8; O2SAT 95
[2025-05-26 05:00] VITALS: BP 112/77; PULSE 71; RESP 20; TEMP 97.8; O2SAT 94
[2025-05-26 08:00] VITALS: PULSE 71; RESP 18; O2SAT 95
[2025-05-26 09:10] VITALS: BP 124/85; PULSE 56; RESP 18; TEMP 97.9; O2SAT 95
--- NOTE | 2025-05-26 12:57 | DVHPN2 ---
Reviewed: Care Plan, H&P, Labs, Medications, Previous Orders, Radiology Changes from previous H/P or p: No Changes Eyes: No Pain, No Vision change, No Conjunctivae inflammation, No Eyelid inflammation, No Other, No Redness ENT: No Ear pain, No Ear discharge, No Nose pain, No Nose discharge, No Nose congestion, No Mouth pain, No Mouth swelling, No Throat pain, No Throat swelling, No Other Cardiovascular: No Chest Pain, No Palpitations, No Orthopnea, No Paroxysmal Noc. Dyspnea, No Edema, No Lt Headedness, No Other Respiratory: No Cough, No Dry, No Shortness of breath, No SOB with excertion, No Wheezing, No Hemoptysis, No Pleuritic Pain, No Sputum, No Other Gastrointestinal: No Nausea, No Vomiting; Abdominal Pain; No Diarrhea, No Constipation, No Melena, No Hematochezia, No Other Genitourinary: No Dysuria, No Frequency, No Incontinence, No Hematuria, No Retention, No Other Musculoskeletal: No other, No neck pain, No shoulder pain, No arm pain, No back pain, No hand pain, No leg pain, No foot pain Skin: No Rash, No Lesions, No Jaundice, No Bruising, No Other Objective Vitals Vital Signs Date Time Temp Pulse Resp B/P (MAP) Pulse Ox O2 Delivery O2 Flow Rate FiO2 05/26/25 09:10 97.9 56 18 124/85 (98) 95 97.9 05/26/25 08:00 Room Air* 0 21 Intake/Output Intake and Output 05/26/25 07:00 Intake Total 2170 ml Balance 2170 ml Intake Oral 1820 ml IV Total 350 ml # Voids 6 # Bowel Movements 3 Medications Current Medications Medications Dose Ordered Sig/Irasema Route Start Time Stop Time Status Last Admin Dose Admin Ceftriaxone Sodium 50 ml @ 100 mls/hr DAILY@09 IV 05/22/25 09:00 05/26/25 09:04 100 MLS/HR Metronidazole 100 ml @ 100 mls/hr Q8HR IV 05/22/25 06:00 05/26/25 06:11 100 MLS/HR Acetaminophen/ Hydrocodone Bitart 1 tab Q4HP PRN PO 05/21/25 23:00 05/23/25 20:33 1 TAB Ondansetron HCl 4 mg Q4HP PRN IV 05/21/25 23:00 Acetaminophen 650 mg Q6HP PRN PO 05/21/25 23:00 05/22/25 14:19 650 MG Morphine Sulfate 2 mg Q4HPRN PRN IV 05/21/25 23:00 Hold 05/22/25 22:40 2 MG Sodium Chloride 1,000 ml @ 50 mls/hr Q20H IV 05/21/25 23:00 05/22/25 18:32 50 MLS/HR Nitroglycerin 0.4 mg Q5MINP PRN SL 05/22/25 00:00 Morphine Sulfate 2 mg Q30M PRN IV 05/22/25 00:00 Hydralazine HCl 10 mg Q6HP PRN IV 05/22/25 01:00 Acetaminophen/ Hydrocodone Bitart 1 tab Q6HP PRN PO 05/23/25 17:00 05/26/25 09:04 1 TAB Polyethylene Glycol 17 gm DAILY PO 05/24/25 10:00 05/26/25 09:03 17 GM Laboratory Results Laboratory Tests 05/24/25 05:36 Urinalysis Test 05/21/25 21:49 Urine Color Light-yellow (Yellow) Urine Clarity Clear (Clear) Urine pH 7.0 (5.0-9.0) Urine Specific [place] 1.036 (1.001-1.035) Urine Protein Negative (Negative) Urine Ketones Trace (Negative) Urine Blood Negative /uL (Negative) Urine Nitrite Negative (Negative) Urine Bilirubin Negative (Negative) Urine Urobilinogen Normal mg/dL (Negative) Urine Leukocyte Esterase Negative /uL (Negative) Urine RBC 2 /hpf (0 - 3) Urine Microscopic WBC < 1 /HPF (0-3) Urine Squamous Epithelial Cells Few /hpf (<5) Urine Amorphous Crystals Few /hpf (None Seen) Urine Bacteria None seen /hpf (None Seen) Urine Mucus Few (None Seen) Urine Glucose Normal mg/dL (Normal) Labs and/or images reviewed: Labs reviewed by me, Image(s) reviewed by me Assessment/Plan Assessment/Plan Acute epigastric abdominal pain Sepsis secondary to acute cholecystitis Acute cholecystitis status post lap felicita by Dr. Lepe on 05/23/2025 13 mm nonobstructing left kidney stone: ESWL as an outpatient per urologist Acute pancreatitis lipase 73: IV fluids, consult for GI No CBD stones by MRCP 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, MRI abdomen with and without contrast pancreatic mass protocol ordered Hypertension Acute dehydration: IV fluids Patient Tolerating regular diet minimal abdominal pain stable vital signs and patient wants to go home Plan discussed with: Patient My Orders Orders - DORI BECKHAM MD Procedure Category Date Status Time Regular Diet DIET 05/25/25 Transmitted Dinner Mri Abdomen [place] MRI 05/25/25 Resulted 13:35 Date of Service: May 26, 2025 Billing Provider: DORI BECKHAM MD Common Visit Codes: [id number] INP/OBS CARE(HIGH) DORI BECKHAM MD May 26, 2025 12:57
[2025-05-26] MEDS ORDERED: HYDR-4902 PO (12:59)
[2025-05-26] MEDS ORDERED: METR-344 PO (12:59)
[2025-05-26] MEDS ORDERED: LEVO500T91 PO (12:59)
--- NOTE | 2025-05-26 13:06 | DVHDS2 ---
Discharge Summary Date of Admission May 21, 2025 at 23:47 Date of Discharge: May 26, 2025 Admitting Diagnosis Right upper quadrant abdominal pain Wounds: Laparoscopic cholecystectomy Labs/Diagnostic Data: Laboratory Results Test 05/24/25 05:36 05/21/25 21:58 05/21/25 21:49 05/21/25 20:59 White Blood Count 15.8 10^3/uL (4.4-10.8) Red Blood Count 4.93 10^6/uL (4.5-5.90) Hemoglobin 14.8 g/dL (13.5-17.5) Hematocrit 42.4 % (41.0-53.0) Mean Corpuscular Volume 86.0 fL (80.0-100.0) Mean Corpuscular Hemoglobin 30.1 pg (28.0-32.0) Mean Corpuscular Hemoglobin Concent 34.9 g/dL (32.0-36.0) Red Cell Distribution Width 13.8 % (11.8-14.3) Platelet Count 232 10^3/uL (140-450) Mean Platelet Volume 9.1 fL (6.9-10.8) Neutrophils (%) (Auto) 89.9 % (37.0-80.0) Lymphocytes (%) (Auto) 6.0 % (10.0-50.0) Monocytes (%) (Auto) 3.9 % (0.0-12.0) Eosinophils (%) (Auto) 0.1 % (0.0-7.0) Basophils (%) (Auto) 0.1 % (0.0-2.0) Neutrophils # (Auto) 14.3 10 ^3/uL (1.6-8.6) Lymphocytes # (Auto) 0.9 10 ^3/uL (0.4-5.4) Monocytes # (Auto) 0.6 10 ^3/uL (0-1.3) Eosinophils # (Auto) 0 10 ^3/uL (0-0.8) Basophils # (Auto) 0 10 ^3/uL (0-0.2) Nucleated Red Blood Cells 0.0 % Sodium Level 140 mmol/L (136-145) Potassium Level 4.2 mmol/L (3.5-5.1) Chloride Level 106 mmol/L (98-107) Carbon Dioxide Level 24 mmol/L (20-31) Anion Gap 10 (5-15) Blood Urea Nitrogen 11 mg/dL (9-23) Creatinine 0.91 mg/dL (0.700-1.30) Glomerular Filtration Rate Calc 107 mL/min (>90) BUN/Creatinine Ratio 12.1 (10.0-20.0) Serum Glucose 114 mg/dL (74-106) Calcium Level 10.2 mg/dL (8.7-10.4) Total Bilirubin 0.7 mg/dL (0.2-1.0) Aspartate Amino Transferase (AST) 18 U/L (13-40) Alanine Aminotransferase (ALT) 16 U/L (7-40) Alkaline Phosphatase 91 U/L (46-116) Total Protein 6.7 g/dL (5.7-8.2) Albumin 3.8 g/dL (3.2-4.8) CA 19-9 Antigen 9 U/mL (0-35) Troponin I High Sensitivity 3 ng/L (</=54) Urine Color Light-yellow (Yellow) Urine Clarity Clear (Clear) Urine pH 7.0 (5.0-9.0) Urine Specific [place] 1.036 (1.001-1.035) Urine Protein Negative (Negative) Urine Ketones Trace (Negative) Urine Blood Negative /uL (Negative) Urine Nitrite Negative (Negative) Urine Bilirubin Negative (Negative) Urine Urobilinogen Normal mg/dL (Negative) Urine Leukocyte Esterase Negative /uL (Negative) Urine RBC 2 /hpf (0 - 3) Urine Microscopic WBC < 1 /HPF (0-3) Urine Squamous Epithelial Cells Few /hpf (<5) Urine Amorphous Crystals Few /hpf (None Seen) Urine Bacteria None seen /hpf (None Seen) Urine Mucus Few (None Seen) Urine Glucose Normal mg/dL (Normal) Urine Opiates Screen Neg (NEGATIVE) Urine Fentanyl Screen Neg (NEGATIVE) Urine Barbiturates Screen Neg (NEGATIVE) Urine Phencyclidine Screen Neg (NEGATIVE) Urine Amphetamines Screen Neg (NEGATIVE) Urine Benzodiazepines Screen Neg (NEGATIVE) Urine Cocaine Screen Neg (NEGATIVE) Urine Cannabinoids Screen Neg (NEGATIVE) Lactic Acid Level 1.6 mmol/L (0.4-2.0) Test 05/21/25 20:54 Prothrombin Time 10.9 sec (9.3-11.8) Prothrombin Time INR 1.03 (0.9-1.15) B-Type Natriuretic Peptide 12.43 pg/mL (0-100) Lipase 73 U/L (12-53) Other Laboratory Tests 05/24/25 05:36 Brief Hx & Hospital Course: 44-year-old male came in with right upper quadrant pain found to have acute gangrenous cholecystitis underwent laparoscopic cholecystectomy by surgeon Roberth. Postop course uneventful at the time of discharge patient is tolerating regular diet without any pain. 13 mm nonobstructing left kidney stone seen by Urology DR Cuadra advised outpatient ESWL discharged home Consults/Reason for consult Surgeon Dr. Lepe Operations or Procedures Laparoscopic cholecystectomy Condition at Discharge: Stable Final Diagnosis/Problems List Acute gangrenous cholecystitis status post lap felicita 13 mm nonobstructing left kidney stone outpatient follow up with Urology Dr. Slade for EFW Acute epigastric abdominal pain Sepsis secondary to acute cholecystitis 13 mm nonobstructing left kidney stone: ESWL as an outpatient per urologist Acute pancreatitis lipase 73: IV fluids, consult for GI No CBD stones by MRCP 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, MRI abdomen with and without contrast pancreatic mass protocol ordered Hypertension Acute dehydration: IV fluids Discharge Disposition: Home Discharge Instruct/Medications Diet: Regular Activity: Light activity Follow Up/Referral: Follow up with the primary Dr in one week Follow up with the Urology Dr. Cuadra in two weeks forearm patient treatment of the stone Follow up with the surgeon Dr. Lepe in 10 days Medications: Levaquin Flagyl [place] Transmitted to [facility]'s Scheduled Levofloxacin Hemihydrate (Levaquin 500 Mg), 1 TAB PO DAILY Metronidazole (Flagyl), 1 TAB PO TID Scheduled PRN Hydrocodone-Acetaminophen (Hydrocodone Bitartrate/AC 5-325 mg), 1 TAB PO QID PRN Discharge Statement: "Patient was advised to return to the ER or call 911 if any headaches, dizziness, shortness of breath, chest pain, abdominal pain, bleeding, fevers, or worsening of medical condition. Patient was counseled about treatment plan, medications, possible side effects, patientverbalized understanding. All questions were answered to the best of my ability. This discharge took greater then 30 minutes in planning, reviewing documentation, counseling the patient, and discussing with other team members." ASSESSMENT ASSESSMENT Assessment Acute gangrenous cholecystitis status post lap felicita 13 mm nonobstructing left kidney stone outpatient follow up with Urology Dr. Slade for EFW Acute epigastric abdominal pain Sepsis secondary to acute cholecystitis 13 mm nonobstructing left kidney stone: ESWL as an outpatient per urologist Acute pancreatitis lipase 73: IV fluids, consult for GI No CBD stones by MRCP 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, MRI abdomen with and without contrast pancreatic mass protocol ordered Hypertension Acute dehydration: IV fluids Date of Service: May 26, 2025 Billing Provider: DORI BECKHAM MD Common Visit Codes: [id number] DISCH DAY >30min DORI BECKHAM MD May 26, 2025 13:06
--- NOTE | 2025-05-26 15:52 | DVHPN2 ---
Progress Note - Dictate Date Seen: May 26, 2025 (Late entryPatient seen at 2:00 p.m.) Medical Necessity Reason Pt with a Central, PICC or Fol: No Subjective Mild postop abdominal pain Postop day 3 S/P laparoscopic cholecystectomy No nausea vomiting, tolerating soft diet vital signs Vital Sign Date Time Temp Pulse Resp B/P (MAP) Pulse Ox O2 Delivery O2 Flow Rate FiO2 05/26/25 09:10 97.9 56 18 124/85 (98) 95 97.9 05/26/25 08:00 Room Air* 0 21 Total Intake and Output 05/25/25 05/25/25 05/26/25 14:59 22:59 06:59 Intake Total 150 ml 1420 ml 600 ml Balance 150 ml 1420 ml 600 ml objective Examination: GENERAL:Normal, HEENT:Normal (No icterus), ABDOMEN:Normal (Nondistended, incisions with skin glue in place, umbilical incision with some ecchymosis inferiorly, all incisions without any surrounding signs of infection, very mild right upper quadrant tenderness, no rebound, no guarding) laboratory and microbiology Laboratory Tests 05/24/25 05:36 Test 05/24/25 05:36 Range/Units Serum Glucose 114 H 74-106 mg/dL Problems(with codes): (1) Acute cholecystitis due to biliary calculus (2) Elevated lipase (3) Leukocytosis, unspecified (4) Acute abdominal pain Prognosis Plan Discharge planning is in progress Patient will follow up in my office as an outpatient for any ongoing GI issues and to discuss elective panendoscopy Once again thank you for allowing us to participate in the care of this patient Dietary Evaluation Review Recommendations by RD: Dietary education by RD Comments: 1) Encourage optimal PO intake 2) Advance to cardiac diet wehn medically feasible 3) Refer to outpatient RD for weight management 4) Follow-up with gastroenterology, cardiology, and urology 5) Continue to monitor I&O, labs, and skin integrity Expected Outcomes/Goals: 1) appetite and labs to improve 2) diet to advance 3) gradual wt loss 4) f/u in 3-5 days Plan discussed with: Other (Nurse) FORD RODRIGUEZ MD May 26, 2025 15:52
== END 2025-05-26 15:30 | disposition home or self-care (01) | DRG 853 ==
LOC: EDUNIT# 20:36 → EDBD 20:36 → ER 20:36 → OVERFLOW 23:47 → WEST WING 05-22 00:44
PROVIDERS: ADMIT Family Medicine; ATTEND Family Medicine
PROC: 0FT44ZZ Resection of Gallbladder, Percutaneous Endoscopic Approach (ICD-10-PCS; principal; 2025-05-23 15:01)
DX: A41.9 Sepsis, unspecified organism (principal); K85.90 Acute pancreatitis without necrosis or infection, unspecified; K81.0 Acute cholecystitis; E86.0 Dehydration; K82.A1 Gangrene of gallbladder in cholecystitis; N20.0 Calculus of kidney; I10 Essential (primary) hypertension; R74.8 Abnormal levels of other serum enzymes; K86.9 Disease of pancreas, unspecified; K66.0 Peritoneal adhesions (postprocedural) (postinfection)
CPT/HCPCS: 36415; 71260; 74177; 74181; 74183; 76705; 78226; 80053; 80307; 81001; 83605; 83690; 83880; 84484; 85025; 85610; 86301; 86850; 86900; 86901; 93005; 96374; 96375; G0378; J0694; J1100; J1885; J2003; J2250; J2405; J2543; J2704; J3490

== ENCOUNTER 2025-06-05 11:33 | Inpatient (IN) | payer OTHER ==
[~2025-06-05] VITALS: Ht 180.3 cm; Wt 135.5 kg
[~2025-06-05 11:33] MED LIST: HYDR-4902 PO; LEVO500T91 PO; METR-344 PO
[2025-06-05 12:32] LABS: Hematocrit 44.2 % (41.0-53.0); Hemoglobin 14.8 g/dL (13.5-17.5); Mean Corpuscular Hemoglobin 29.2 pg (28.0-32.0); Mean Corpuscular Volume 87.1 fL (80.0-100.0); Nucleated Red Blood Cells % 0.0 %
[2025-06-05 12:44] LABS: Alanine Aminotransferase 19 U/L (7-40); Albumin 4.3 g/dL (3.2-4.8); Alkaline Phosphatase 111 U/L (46-116); Anion Gap 8 (5-15); BUN/Creatinine Ratio 9.5 (10.0-20.0); Blood Urea Nitrogen 10 mg/dL (9-23); Carbon Dioxide 29 mmol/L (20-31); Chloride 104 mmol/L (98-107); Glucose 97 mg/dL (74-106); Lipase 40 U/L (12-53); Potassium 4.0 mmol/L (3.5-5.1); Sodium 141 mmol/L (136-145); Total Protein 7.5 g/dL (5.7-8.2)
[2025-06-05 12:45] LABS: Bilirubin, Total 0.5 mg/dL (0.2-1.0)
[2025-06-05 12:47] LABS: Calcium 10.5 mg/dL (8.7-10.4)
--- NOTE | 2025-06-05 12:52 | DVH ---
Indication: r abd pain, post op Technique: CT axial images of the abdomen and pelvis are obtained without contrast. Coronal and sagit edwin reformats were obtained. Radiation Dose Information: CTDI volume is 26 mGy. Dose-length product is 1565 mGy*cm Comparison: None FINDINGS: There is limited interpretation of the abdomen and pelvis without administration of intravenous contr ast. Lung bases demonstrate no pleural effusion. Adrenal glands, spleen, pancreas unremarkable in shape. Hepatic steatosis. Cholecystectomy. The right kidney demonstrates [id number] right hydroureteronephrosis secondary to 4 mm distal ureteral calculus. Nonobstructing right renal calculus measuring 2 mm. Nonobstructing left renal calc gorge up to 14 mm. Stomach is moderately distended. Small bowel loops are normal in caliber. Moderate volume stool in the colon. Normal appendix. Bladder partially distended. No free pelvic fluid. No inguinal lymphadenopathy. Mild anterior wall stranding which may be secondary to recent surgery /cholecystectomy. [id number] ate thoracolumbar degenerative disc disease. IMPRESSION: Limited evaluation without contrast. [id number] right hydroureteronephrosis secondary to a 4 mm distal right ureteral calculus. Nonobstructing right renal calculus measuring 2 mm. Nonobstructing left renal calculi up to 14 mm. Interval cholecystectomy.
[2025-06-05] MEDS: SODIUM CHLORIDE 0.9% 1,000 ML IV ONE (13:23)
[2025-06-05] MEDS: fentaNYL CITRATE 100 MCG/2 ML VL IV ONE (13:23)
[2025-06-05] MEDS: TAMSULOSIN HYDROCHLORIDE 0.4 MG CAP PO ONE ×2 (13:25→17:09)
--- NOTE | 2025-06-05 13:30 | ED.PDOC ---
GI ASSESSMENT HPI Comments To I would do like 44-year-old male who per the ED if she complaint of right- sided abdominal pain Patient states he has been having abdominal pain for the past 2 hours and was referred to the ED from earlier this morning at [facility] while seeing a primary care physician Patient states his pain is located in the right upper quadrant, with pain radiating to the right groin and right flank region with no associated exacerba ting or relieving factors Patient states the pain is 8/10 constant sharp in nature Patient states he did surgery 10 days prior for cholecystectomy and is currently on antibiotic Levaquin and Flagyl Patient otherwise states that he does have history of kidney stones Patient is on tramadol and also for pain control at home which isn't helping with the his pain today. PMHx: Kidney stones , hypertension past surgical history: Cholecystectomy, colonoscopy Medications: Levaquin Flagyl [place] Allergies: Denies Social history: denies ETOH, denies tobacco use, denies drug use Patient was discharged on May 26 with the following: Final Diagnosis/Problems List Acute gangrenous cholecystitis status post lap felicita 13 mm nonobstructing left kidney stone outpatient follow up with Urology Dr. Slade for EFW Acute epigastric abdominal pain Sepsis secondary to acute cholecystitis 13 mm nonobstructing left kidney stone: ESWL as an outpatient per urologist Acute pancreatitis lipase 73: IV fluids, consult for GI No CBD stones by MRCP 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, MRI abdomen with and without contrast pancreatic mass protocol ordered Hypertension Acute dehydration: IV fluids HPI: Poor Historian. REVIEW OF SYSTEMS: CONSTITUTIONAL: Denies acute: fever, diaphoresis, chills, generalized weakness. HEAD: Denies acute: headache, photophobia Eyes: Denies acute: Double vision, vision loss, eye pain, eye discharge. EARS: Denies acute: tinnitus, hearing loss, ear discharge, ear pain, THROAT: Denies acute: sore throat, swelling, difficulty swallowing , pain with swallowing, change in voice. NECK: Denies acute: neck pain, neck swelling, stiff neck. HEART: Denies acute : chest pain, palpitations, LUNGS: Denies acute: SOB, wheezing, cough, hemoptysis ABDOMEN: Denies acute: Nausea, Vomiting, diarrhea, melena , hematemesis, hematochezia SKIN: Denies acute: rash, redness, lesions, itchiness. EXTREMITIES: Denies acute: calf pain, numbness, tingling, weakness, denies pain in extremity. Denies acute: Low back pain. Neuro: Denies acute: focal neurological deficit, motor or sensory focal neurological deficit, tremors, seizure like activity, confusion, dizziness, change in mental status, loss of bowel or bladder function, cauda equina like symptoms. : Denies acute: dysuria, hematuria, increase in urinary frequency. PSYCH: Denies acute: hallucination, suicidal ideation, homicidal ideation. PHYSICAL EXAM: General: ----moderate----acute distress, awake and alert. Head: normocephalic, atraumatic. Neck: supple, trachea is midline, no swelling. Throat: Normal phonation. Eyes:, no erythema, no purulent discharge, no proptosis, no icterus. Heart: regular rate, regular rhythm, no significant murmur appreciated. Lungs: no apparent respiratory distress, Able to speak in full sentences. No wheezing, no rhonchi, no crackles. No stridors Clear to auscultation bilaterally. Abdomen: Right-sided abdominal tender to palpation, non distended, soft, no guarding, no rebound, + bowel sounds. Neuro: Awake, Alert, oriented to name, self, situation, follows commands GCS=15. Speech is normal. Skin: no petechia, no purpura, no cyanosis, non-pale, slightly jaundice. Lower extremities: --no - Pitting edema no deformity, no focal swelling, no calf TTP. Makes eye contact. moves all four extremities. Face: no apparent facial droop. Right sided CVA tenderness to percussion Ambulating in the ED independently. ED COURSE: DISCLAIMER: This medical document was created using an electronic medical record system with voice recognition software and computerized dictation system. Although this document has been carefully reviewed, there might still be some phonetic and typographical errors. Occasional wrong-word or "sound-alike" substitutions may have occurred due to the inherent limitations of voice recognition software. These areas are purely typographical due to imperfections of the software programs and do not reflect any compromise in the patient's medical care. Please read the chart carefully and recognize, using context, where these substitutions have occurred. Chief Complaint: Abdominal Pain Time Seen by MD: 13:00 Reviewed Notes: Medications, Allergies Allergies: Coded Allergies: NO KNOWN ALLERGIES (Unverified , 05/21/25) Home Meds Active Scripts Hydrocodone-Acetaminophen (Hydrocodone Bitartrate/AC 5-325 mg) 1 Tab Tab, 1 TAB PO QID PRN, #30 TAB Prov:DORI BECKHAM MD 05/26/25 Metronidazole (Flagyl) 500 Mg Tab, 1 TAB PO TID, #30 TAB Prov:DORI BECKHAM MD 05/26/25 Levofloxacin Hemihydrate (LEVAQUIN 500 MG) 500 Mg Tab, 1 TAB PO DAILY, #10 TAB Prov:DORI BECKHAM MD 05/26/25 Reported Medications Lisinopril & Hydrochlorothiazi (Lisinopril/Hydrochlorothi) 1 Tab Tab, 1 TAB PO QAM 06/05/25 Information Source: Patient, Spouse Mode of Arrival: Ambulatory Brought in by: spouse Past Medical History PAST MEDICAL HISTORY: HTN Surgical History: Cholecystectomy Family History Family History: Reviewed,noncontributory to illness Social History Smoker: Non-Smoker Alcohol: Denies ETOH Use Drugs: Denies Drug Use Lives In: Home Was a procedure done? Was a procedure done?: No GI differential Dx Differential Diagnosis: Other (DDX include but not limited to diverticulitis, colitis, gastroenteritis, acute abdomen, SBO, enteritis, constipation, volvulus, appendicitis, Gallbladder disease, choledocolithiasis, ascending cholangitis, pancreatitis, intraAbdominal mass/neoplasm, hepatitis, UTI, pylonephritis, kidney stone, aneurysm, dissection, Inflammatory bowel disease, gastroparesis, ischemic bowel.) X-Ray, Labs, Meds, VS Vital Signs Date Time Temp Pulse Resp B/P (MAP) Pulse Ox O2 Delivery O2 Flow Rate FiO2 06/05/25 13:23 130/77 06/05/25 11:56 97.6 75 18 130/77 (94) 97 97.6 06/05/25 11:35 97.6 75 18 130/77 97 97.6 Lab Test 06/05/25 12:13 Range/Units White Blood Count 16.1 H 4.4-10.8 10^3/uL Red Blood Count 5.07 4.5-5.90 10^6/uL Hemoglobin 14.8 13.5-17.5 g/dL Hematocrit 44.2 41.0-53.0 % Mean Corpuscular Volume 87.1 80.0-100.0 fL Mean Corpuscular Hemoglobin 29.2 28.0-32.0 pg Mean Corpuscular Hemoglobin Concent 33.5 32.0-36.0 g/dL Red Cell Distribution Width 14.2 11.8-14.3 % Platelet Count 288 140-450 10^3/uL Mean Platelet Volume 8.4 6.9-10.8 fL Neutrophils (%) (Auto) 84.3 H 37.0-80.0 % Lymphocytes (%) (Auto) 9.1 L 10.0-50.0 % Monocytes (%) (Auto) 4.6 0.0-12.0 % Eosinophils (%) (Auto) 1.5 0.0-7.0 % Basophils (%) (Auto) 0.5 0.0-2.0 % Neutrophils # (Auto) 13.6 H 1.6-8.6 10 ^3/uL Lymphocytes # (Auto) 1.5 0.4-5.4 10 ^3/uL Monocytes # (Auto) 0.7 0-1.3 10 ^3/uL Eosinophils # (Auto) 0.2 0-0.8 10 ^3/uL Basophils # (Auto) 0.1 0-0.2 10 ^3/uL Nucleated Red Blood Cells 0.0 % Prothrombin Time 10.7 9.3-11.8 sec Prothrombin Time INR 1.01 0.9-1.15 Sodium Level 141 136-145 mmol/L Potassium Level 4.0 3.5-5.1 mmol/L Chloride Level 104 98-107 mmol/L Carbon Dioxide Level 29 20-31 mmol/L Anion Gap 8 5-15 Blood Urea Nitrogen 10 9-23 mg/dL Creatinine 1.05 0.700-1.30 mg/dL Glomerular Filtration Rate Calc 90 >90 mL/min BUN/Creatinine Ratio 9.5 L 10.0-20.0 Serum Glucose 97 74-106 mg/dL Lactic Acid Level 0.9 0.4-2.0 mmol/L Calcium Level 10.5 H 8.7-10.4 mg/dL Total Bilirubin 0.5 0.2-1.0 mg/dL Aspartate Amino Transferase (AST) 18 13-40 U/L Alanine Aminotransferase (ALT) 19 7-40 U/L Alkaline Phosphatase 111 46-116 U/L Troponin I High Sensitivity 3 L </=54 ng/L Total Protein 7.5 5.7-8.2 g/dL Albumin 4.3 3.2-4.8 g/dL Lipase 40 12-53 U/L Current Medications Medications (Trade) Dose Ordered Sig/Irasema Route Start Time Stop Time Status Last Admin Sodium Chloride 1,000 ml @ 1,000 mls/hr Q1H ONCE IV 06/05/25 13:00 06/05/25 13:59 DC 06/05/25 13:23 Fentanyl Citrate 100 mcg ONCE ONCE IV 06/05/25 13:00 06/05/25 13:01 DC 06/05/25 13:23 [place] [id number] Ph: [phone] DIAGNOSTIC IMAGING Diagnostic Imaging Report : [id number] Signed PATIENT: VIDHYA DIAZ ACCT: [id number] UNIT: [id number] : 1980 LOC: ER ROOM / BED: / AGE / SEX: 44 / M ADM STATUS: REG ER SERVICE 1144 ORDERING PHYSICIAN: MIRIAM SILVA DO PROCEDURE(s): ABPL - CT AB PEL WO CON-NO ORAL OR IV REASON: r abd pain, post op ORDER NUMBER(s): [id number], ACCESSION NUMBER(s): [id number] Indication: r abd pain, post op Technique: CT axial images of the abdomen and pelvis are obtained without contrast. Coronal and sagittal reformats were obtained. Radiation Dose Information: CTDI volume is 26 mGy. Dose-length product is 1565 mGy*cm Comparison: None FINDINGS: There is limited interpretation of the abdomen and pelvis without administration of intravenous contrast. Lung bases demonstrate no pleural effusion. Adrenal glands, spleen, pancreas unremarkable in shape. Hepatic steatosis. Cholecystectomy. The right kidney demonstrates ypmj-vh-[id number] right hydroureteronephrosis secondary to 4 mm distal ureteral calculus. Nonobstructing right renal calculus measuring 2 mm. Nonobstructing left renal calculi up to 14 mm. Stomach is moderately distended. Small bowel loops are normal in caliber. Moderate volume stool in the colon. Normal appendix. Bladder partially distended. No free pelvic fluid. No inguinal lymphadenopathy. Mild anterior wall stranding which may be secondary to recent surgery /cholecystectomy. Azba-oi-oodkqcpu thoracolumbar degenerative disc disease. IMPRESSION: Limited evaluation without contrast. Tcev-la-jfilialj right hydroureteronephrosis secondary to a 4 mm distal right ureteral calculus. Nonobstructing right renal calculus measuring 2 mm. Nonobstructing left renal calculi up to 14 mm. Interval cholecystectomy. ATED BY: ELVIA GOODMAN MD DICTATED DATE/TIME: 06/05/251253 SIGNED BY: ELVIA GOODMAN MD SIGNED DATE/TIME: 06/05/251253 CC: [place] [id number] Ph: [phone] DIAGNOSTIC IMAGING Diagnostic Imaging Report : [id number] Signed PATIENT: VIDHYA DIAZ ACCT: [id number] UNIT: [id number] : 1980 LOC: OVERFLOW ROOM / BED: [address] [place] [address] AGE / SEX: 44 / M ADM STATUS: ADM IN SERVICE 23 ORDERING PHYSICIAN: KATHI RUFF PROCEDURE(s): CXR1 - CHEST XRAY 1 VIEW REASON: baseline ORDER NUMBER(s): [id number], ACCESSION NUMBER(s): [id number] CHEST RADIOGRAPH Indication: baseline Technique: Single frontal view of the chest was obtained Comparison: None FINDINGS: Lines and Tubes: None Lungs: No focal consolidation. Pleura: No effusion. No pneumothorax. Cardiomediastinal contours: Unremarkable Bones: No acute osseous abnormality. IMPRESSION: 1. No acute cardiopulmonary disease. ATED BY: JULY MCFADDEN Jr., DO DICTATED DATE/TIME: 06/05/251455 SIGNED BY: JULY MCFADDEN Jr., DO SIGNED DATE/TIME: 06/05/251455 CC: Time of 1ST Reevaluation: 13:30 Reevaluation 1ST: Unchanged Patient Education/Counseling: Diagnosis, Treatment Family Education/Counseling: Diagnosis, Treatment Comments MDM: patient presented with the above HPI.--abdominal pain----workup was initiated. patient was found with the above mentioned diagnosis. the following medications were ordered: please refer to order lists of meds and tests obtained by myself Dr. Silva. Patient ED course and VS have been stabilized. Patient has been reassessed in the ED and remained in a stable condition. Pertinent incidental findings were discussed with the patient and/or family. Patient/family voices understanding and is agreeable with plan. Patient has been observed in the ED adequate length of time to insure improvement/stability. Escalation of care considered: Consideration of escalation to observation or admission Patient was ADMITTED to the medicine team for further evaluation and treatment of their presentation. All the reports of any imaging studies that were ordered by myself were reviewed by myself. SEPSIS Sepsis Screen Date sepsis recognized/suspect: Jun 05, 2025 Time Sepsis recognized/suspect: 1136 Recent Procedure: Yes On Antibiotic Therapy: Yes Respiratory Rate >20: No Heart Rate >90: No Temp<36 C (96.8 F) or >38.3 C: No SBP <90 or MAP <65 mmHG: No New Acute Mental Status Change: No Is the patient on CPAP, BIPAP,: No Physician Orders [place] (06/05/25 ) Ct Ab Pel Wo Con-No Oral Or Iv (06/05/25 11:44) Vital Signs Date Time Temp Pulse Resp B/P (MAP) Pulse Ox O2 Delivery O2 Flow Rate FiO2 06/05/25 13:23 130/77 06/05/25 11:56 97.6 75 18 130/77 (94) 97 97.6 06/05/25 11:35 97.6 75 18 130/77 97 97.6 Laboratory Tests Test 06/05/25 12:13 Lactic Acid Level 0.9 mmol/L (0.4-2.0) White Blood Count 16.1 10^3/uL (4.4-10.8) H Medications Medications Dose Ordered Sig/Irasema Route Start Time Stop Time Status Last Admin Dose Admin Fentanyl Citrate 100 mcg ONCE ONCE IV 06/05/25 13:00 06/05/25 13:01 DC 06/05/25 13:23 Sodium Chloride 1,000 ml @ 1,000 mls/hr Q1H ONCE IV 06/05/25 13:00 06/05/25 13:59 DC 06/05/25 13:23 Departure 1 Departure Time of Disposition: 13:56 Impression: Primary Impression: Hydroureteronephrosis Additional Impressions: Kidney stone on right side Leukocytosis, unspecified UTI (urinary tract infection) Disposition: ADMITTED INPATIENT Admit to: Tele Condition: Guarded Discharged With: Self Critical Care Note Critical Care Time?: No I personally scribed for MIRIAM SILVA DO ([email or web address]) on 06/05/25 at 13:30. Electronically submitted by Jaci Samuels ([email or web address]). I personally scribed for MIRIAM SILVA DO ([email or web address]) on 06/05/25 at 17:03. Electronically submitted by Jaci Samuels ([email or web address]). IMRIAM SILVA DO Jun 05, 2025 13:30
[2025-06-05] MEDS ORDERED: LISI-283 PO (14:28)
[2025-06-05] MEDS ORDERED: ONDANSETRON HCL 4 MG/2 ML VIAL IV PRN (14:30)
[2025-06-05] MEDS ORDERED: ACETAMINOPHEN 325 MG TAB PO PRN (14:30)
--- NOTE | 2025-06-05 14:31 | DVHHP2 ---
History of Present Illness Reason for Visit: Abdominal pain History of Present Illness JoshbA is a 44-year-old male with past medical history of morbid obesity, cholecystectomy 2 weeks ago, hypertension, colonoscopy, and right hand surgery who presents to the ED with right upper quadrant abdominal pain that started today. Patient reports that he was here for a follow up with Dr. Lepe for a cholecystectomy that he had 2 weeks ago. He reports that suddenly there was pain in his RUQ abdomen that radiated to his back and down to his testicles 9/10 stabbing like and constant. He states that there were no triggering or alleviating factors. He reports that he lives at home with his family. He also states that he is compliant with his medications. Patient denies any recent trauma or injury, recent sick contacts, recent tr avels, recent ingestion of spoiled food, chest pain, shortness of breath, fever, chills, lightheadedness, weakness, dizziness, nausea, vomiting, diarrhea, or urinary symptoms. Cardiovascular: HTN Past Medical History Morbid obesity Past Surgical History: Cholecystectomy, Other (Right hand surgery and colonoscopy) Family History: DM, Hypertension, Other (Mom with diabetes and dad with hypertension.) Smoke: No ALCOHOL: none Drugs: None Lives: with Family Domestic Violence: Neg Review of Systems Gastrointestinal: Abdominal Pain Allergies: Coded Allergies: NO KNOWN ALLERGIES (Unverified , 05/21/25) Exam Vital Signs Vital Signs Date Time Temp Pulse Resp B/P (MAP) Pulse Ox O2 Delivery O2 Flow Rate FiO2 06/05/25 13:23 130/77 06/05/25 11:56 97.6 75 18 97 97.6 General Appearance: Alert, Oriented X3, Cooperative, No acute distress HEENT: Atraumatic, PERRLA, EOMI, Mucous membr. moist/pink Respiratory: Clear to auscultation, Normal air movement Cardiovascular: Regular rate, Normal S1, Normal S2 Abdominal: Normal bowel sounds, Soft Extremities: Normal pulses Skin: No significant lesion Neuro: Normal gait, Normal speech, Strength at 5/5 X4 ext, Normal tone, S ensation intact Psych/Mental Status: Mental status NL, Mood NL Labs/Xrays Labs Test 06/05/25 12:13 Range/Units White Blood Count 16.1 H 4.4-10.8 10^3/uL Red Blood Count 5.07 4.5-5.90 10^6/uL Hemoglobin 14.8 13.5-17.5 g/dL Hematocrit 44.2 41.0-53.0 % Mean Corpuscular Volume 87.1 80.0-100.0 fL Mean Corpuscular Hemoglobin 29.2 28.0-32.0 pg Mean Corpuscular Hemoglobin Concent 33.5 32.0-36.0 g/dL Red Cell Distribution Width 14.2 11.8-14.3 % Platelet Count 288 140-450 10^3/uL Mean Platelet Volume 8.4 6.9-10.8 fL Neutrophils (%) (Auto) 84.3 H 37.0-80.0 % Lymphocytes (%) (Auto) 9.1 L 10.0-50.0 % Monocytes (%) (Auto) 4.6 0.0-12.0 % Eosinophils (%) (Auto) 1.5 0.0-7.0 % Basophils (%) (Auto) 0.5 0.0-2.0 % Neutrophils # (Auto) 13.6 H 1.6-8.6 10 ^3/uL Lymphocytes # (Auto) 1.5 0.4-5.4 10 ^3/uL Monocytes # (Auto) 0.7 0-1.3 10 ^3/uL Eosinophils # (Auto) 0.2 0-0.8 10 ^3/uL Basophils # (Auto) 0.1 0-0.2 10 ^3/uL Nucleated Red Blood Cells 0.0 % Sodium Level 141 136-145 mmol/L Potassium Level 4.0 3.5-5.1 mmol/L Chloride Level 104 98-107 mmol/L Carbon Dioxide Level 29 20-31 mmol/L Anion Gap 8 5-15 Blood Urea Nitrogen 10 9-23 mg/dL Creatinine 1.05 0.700-1.30 mg/dL Glomerular Filtration Rate Calc 90 >90 mL/min BUN/Creatinine Ratio 9.5 L 10.0-20.0 Serum Glucose 97 74-106 mg/dL Lactic Acid Level 0.9 0.4-2.0 mmol/L Calcium Level 10.5 H 8.7-10.4 mg/dL Total Bilirubin 0.5 0.2-1.0 mg/dL Aspartate Amino Transferase (AST) 18 13-40 U/L Alanine Aminotransferase (ALT) 19 7-40 U/L Alkaline Phosphatase 111 46-116 U/L Troponin I High Sensitivity 3 L </=54 ng/L Total Protein 7.5 5.7-8.2 g/dL Albumin 4.3 3.2-4.8 g/dL Lipase 40 12-53 U/L Indication: r abd pain, post op Technique: CT axial images of the abdomen and pelvis are obtained without contrast. Coronal and sagittal reformats were obtained. Radiation Dose Information: CTDI volume is 26 mGy. Dose-length product is 1565 mGy*cm Comparison: None FINDINGS: There is limited interpretation of the abdomen and pelvis without administration of intravenous contrast. Lung bases demonstrate no pleural effusion. Adrenal glands, spleen, pancreas unremarkable in shape. Hepatic steatosis. Cholecystectomy. The right kidney demonstrates edns-jp-igyftqkle right hydroureteronephrosis secondary to 4 mm distal ureteral calculus. Nonobstructing right renal calculus measuring 2 mm. Nonobstructing left renal calculi up to 14 mm. Stomach is moderately distended. Small bowel loops are normal in caliber. Moderate volume stool in the colon. Normal appendix. Bladder partially distended. No free pelvic fluid. No inguinal lymphadenopathy. Mild anterior wall stranding which may be secondary to recent surgery /cholecystectomy. Xpot-xr-ybhscslk thoracolumbar degenerative disc disease. IMPRESSION: Limited evaluation without contrast. Gnwa-rz-qiwzeppu right hydroureteronephrosis secondary to a 4 mm distal right ureteral calculus. Nonobstructing right renal calculus measuring 2 mm. Nonobstructing left renal calculi up to 14 mm. Interval cholecystectomy. SEPSIS Sepsis Screen Date sepsis recognized/suspect: Jun 05, 2025 Time Sepsis recognized/suspect: 1137 Recent Procedure: Yes On Antibiotic Therapy: Yes Respiratory Rate >20: No Heart Rate >90: No Temp<36 C (96.8 F) or >38.3 C: No SBP <90 or MAP <65 mmHG: No New Acute Mental Status Change: No Is the patient on CPAP, BIPAP,: No Physician Orders Machine Cell Tuber (06/05/25 ) Urinalysis (06/05/25 11:42) Ct Ab Pel Wo Con-No Oral Or Iv (06/05/25 11:44) Vital Signs Date Time Temp Pulse Resp B/P (MAP) Pulse Ox O2 Delivery O2 Flow Rate FiO2 06/05/25 13:23 130/77 06/05/25 11:56 97.6 75 18 130/77 (94) 97 97.6 06/05/25 11:35 97.6 75 18 130/77 97 97.6 Laboratory Tests Test 06/05/25 12:13 Lactic Acid Level 0.9 mmol/L (0.4-2.0) White Blood Count 16.1 10^3/uL (4.4-10.8) H Medications Medications Dose Ordered Sig/Irasema Route Start Time Stop Time Status Last Admin Dose Admin Fentanyl Citrate 100 mcg ONCE ONCE IV 06/05/25 13:00 06/05/25 13:01 DC 06/05/25 13:23 100 MCG Sodium Chloride 1,000 ml @ 1,000 mls/hr Q1H ONCE IV 06/05/25 13:00 06/05/25 13:59 DC 06/05/25 13:23 1,000 MLS/HR Assessment/Plan Assessment/Plan Assessment Intractable abdominal pain likely due to renal calculi Leukocytosis likely due to Wkmm-js-mvmukdqj right hydroureteronephrosis secondary to a 4 mm distal right ureteral calculus Nonobstructing right renal calculus measuring 2 mm Nonobstructing left renal calculi up to 14 mm Morbid obesity History of cholecystectomy History of hypertension History of colonoscopy History of right hand surgery Plan Admit to med surge Antiemetics Pain management IV antibiotics-Zosyn Blood cultures UA UDS Urine culture PT/INR EKG Chest x-ray Troponin noted negative Lipase Lactic NS 1 L given in ED Home medications reconciled DVT prophylaxis-not indicated patient ambulating PUD prophylaxis-not indicated history of GERD or GI bleed Discussed plan of care with patient and nurse Urology consulted Counseled patient on lifestyle modifications, diet, and exercise [id number] Preventive counseling healthy eating habits, physical activity, and regular checkups Plan discussed with: Patient Date of Service: Jun 05, 2025 Billing Provider: KATHI RUFF Common Visit Codes: 21634-CLBLRMM INP/OBS CARE (HIGH) Secondary Visit Codes: 10606-[id number] COUNSELING IND KATHI RUFF Jun 05, 2025 14:31
[2025-06-05 14:52] LABS: INR 1.01 (0.9-1.15); Prothrombin Time 10.7 sec (9.3-11.8)
--- NOTE | 2025-06-05 14:58 | DVH ---
CHEST RADIOGRAPH Indication: baseline Technique: Single frontal view of the chest was obtained Comparison: None FINDINGS: Lines and Tubes: None Lungs: No focal consolidation. Pleura: No effusion. No pneumothorax. Cardiomediastinal contours: Unremarkable Bones: No acute osseous abnormality. IMPRESSION: 1. No acute cardiopulmonary disease.
[2025-06-05] MEDS: MORPHINE SULFATE 4 MG/ML SYR/VIAL IV PRN (16:38)
[2025-06-05 16:41] VITALS: BP 125/81; PULSE 72; RESP 17; TEMP 98.3; O2SAT 97
[2025-06-05 17:00] LABS: Urine Protein, UAD Negative (Negative)
[2025-06-05] MEDS: SODIUM CHLORIDE 0.9% 1,000 ML IV SCH (17:09)
[2025-06-05] MEDS: PIPERACILLIN-TAZOB 3.375GM 100 ML IV SCH (17:09)
[2025-06-05 17:12] LABS: Amphetamine Screen, Urine Neg (NEGATIVE); Barbiturate Scree,Urine Neg (NEGATIVE); Benzodiazephine Screen, Urine Neg (NEGATIVE); Cannabinoid Screen, Urine Neg (NEGATIVE); Cocaine Screen, Urine Neg (NEGATIVE); Opiate Scree,Urine Neg (NEGATIVE); Phencyclidine Screen, Urine Neg (NEGATIVE)
[2025-06-05 17:36] VITALS: PULSE 79; RESP 18; O2SAT 98
[2025-06-05 20:33] VITALS: BP 120/71; PULSE 78; RESP 18; TEMP 97.9; O2SAT 97
[2025-06-05 21:00] VITALS: BP 139/94; PULSE 74; RESP 17; TEMP 97.8; O2SAT 97
[2025-06-06] VITALS (7 sets, daily range): BP systolic 115–137; BP diastolic 61–85; PULSE 66–76; RESP 15–19; TEMP 97.1–98.2; O2SAT 93–97
[2025-06-06] MEDS: LISINOPRIL 5 MG TAB PO SCH (06:31)
[2025-06-06 06:36] LABS: Hematocrit 41.1 % (41.0-53.0); Hemoglobin 14.2 g/dL (13.5-17.5); Mean Corpuscular Hemoglobin 29.7 pg (28.0-32.0); Mean Corpuscular Volume 86.4 fL (80.0-100.0); Nucleated Red Blood Cells % 0.0 %
[2025-06-06 06:48] LABS: Alanine Aminotransferase 16 U/L (7-40); Albumin 3.6 g/dL (3.2-4.8); Alkaline Phosphatase 101 U/L (46-116); Anion Gap 8 (5-15); BUN/Creatinine Ratio 10.5 (10.0-20.0); Blood Urea Nitrogen 10 mg/dL (9-23); Calcium 10.0 mg/dL (8.7-10.4); Carbon Dioxide 28 mmol/L (20-31); Glucose 88 mg/dL (74-106); Potassium 3.6 mmol/L (3.5-5.1); Sodium 143 mmol/L (136-145); Total Protein 6.5 g/dL (5.7-8.2)
[2025-06-06 06:49] LABS: Bilirubin, Total 0.8 mg/dL (0.2-1.0); Chloride 107 mmol/L (98-107)
[2025-06-06] MEDS: hydroCHLOROthiazide 25 MG TAB PO SCH (09:45)
--- NOTE | 2025-06-06 14:16 | DVHPN2 ---
Subjective I am assuming the care of the patient from today onwards. Patient was seen and evaluated by me. Patient currently complaining of 5/10 pain in the right flank region. 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 Medications Current Medications Medications Dose Ordered Sig/Irasema Route Start Time Stop Time Status Last Admin Dose Admin Sodium Chloride 1,000 ml @ 120 mls/hr Q8H20M IV 06/05/25 14:30 06/05/25 22:40 120 MLS/HR Acetaminophen/ Hydrocodone Bitart 1 tab Q4HP PRN PO 06/05/25 14:30 Ondansetron HCl 4 mg Q4HP PRN IV 06/05/25 14:30 Acetaminophen 650 mg Q6HP PRN PO 06/05/25 14:30 Morphine Sulfate 2 mg Q4HPRN PRN IV 06/05/25 15:00 06/06/25 04:22 2 MG Lisinopril 10 mg QAM PO 06/06/25 07:00 06/06/25 06:31 10 MG Piperacillin Sod/ Tazobactam Sod 100 ml @ 25 mls/hr Q8HR IV 06/05/25 14:30 06/06/25 06:32 25 MLS/HR Tamsulosin HCl 0.4 mg QPM PO 06/06/25 18:00 Hydrochlorothiazide 12.5 mg DAILY PO 06/06/25 10:00 06/06/25 09:45 12.5 MG Laboratory Results Laboratory Tests 06/06/25 04:30 Chemistry Test 06/06/25 04:30 Albumin 3.6 g/dL (3.2-4.8) Calcium Level 10.0 mg/dL (8.7-10.4) Total Protein 6.5 g/dL (5.7-8.2) LFT Test 06/06/25 04:30 Alanine Aminotransferase (ALT) 16 U/L (7-40) Alkaline Phosphatase 101 U/L (46-116) Aspartate Amino Transferase (AST) 15 U/L (13-40) Total Bilirubin 0.8 mg/dL (0.2-1.0) Urinalysis Test 06/05/25 16:44 Urine Color Light-yellow (Yellow) Urine Clarity Turbid (Clear) H Urine pH 5.5 (5.0-9.0) Urine Specific [place] 1.013 (1.001-1.035) Urine Protein Negative (Negative) Urine Ketones Negative (Negative) Urine Blood Trace /uL (Negative) H Urine Nitrite Negative (Negative) Urine Bilirubin Negative (Negative) Urine Urobilinogen Normal mg/dL (Negative) Urine Leukocyte Esterase 1+ /uL (Negative) Urine RBC 10 /hpf (0 - 3) Urine Microscopic WBC 11 /HPF (0-3) H Urine Squamous Epithelial Cells Few /hpf (<5) Urine Bacteria None seen /hpf (None Seen) Urine Mucus Few (None Seen) Urine Glucose Normal mg/dL (Normal) Microbiology Microbiology Date/Time Source Procedure Growth Status 06/05/25 16:44 Voided Urine Urine Culture - Preliminary Resulted Assessment/Plan Assessment/Plan 44-year-old male with a known history of hypertension, distal history of laparoscopic cholecystectomy presented to the hospital with a right flank pain with radiation to right groin and testicle found to have 1. Right flank pain suspect secondary to obstructive uropathy 2. Obstructive uropathy with wcza-zr-[id number] hydronephrosis with a 4 mm distal ureteric stone. 3. Leukocytosis likely reactive next 4. Morbid obesity class 3- -IV fluids, Flomax, urology consultation Plan discussed with: Patient Date of Service: Jun 06, 2025 Billing Provider: LONG PIERSON MD Common Visit Codes: [id number] INP/OBS CARE(MOD) LONG PIERSON MD Jun 06, 2025 14:16
[2025-06-06] MEDS: TAMSULOSIN HYDROCHLORIDE 0.4 MG CAP PO SCH (18:39)
[2025-06-07] VITALS (7 sets, daily range): BP systolic 123–138; BP diastolic 74–90; PULSE 68–80; RESP 16–19; TEMP 97.7–98.9; O2SAT 94–98
[2025-06-07] MEDS: HYDROcodone-ACET 5/325MG TAB PO PRN (08:04)
--- NOTE | 2025-06-07 15:32 | DVHPN2 ---
Subjective Patient was seen and evaluated by me still complaining of 5/10 pain in the right flank region. Urology consult was ordered but she is still pending. I told the nurse Ab to call urologist again so that patient can be evaluated today. 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 Medications Current Medications Medications Dose Ordered Sig/Irasema Route Start Time Stop Time Status Last Admin Dose Admin Sodium Chloride 1,000 ml @ 120 mls/hr Q8H20M IV 06/05/25 14:30 06/07/25 06:04 120 MLS/HR Acetaminophen/ Hydrocodone Bitart 1 tab Q4HP PRN PO 06/05/25 14:30 06/07/25 08:04 1 TAB Ondansetron HCl 4 mg Q4HP PRN IV 06/05/25 14:30 Acetaminophen 650 mg Q6HP PRN PO 06/05/25 14:30 Morphine Sulfate 2 mg Q4HPRN PRN IV 06/05/25 15:00 06/07/25 08:18 2 MG Lisinopril 10 mg QAM PO 06/06/25 07:00 06/07/25 06:40 10 MG Piperacillin Sod/ Tazobactam Sod 100 ml @ 25 mls/hr Q8HR IV 06/05/25 14:30 06/07/25 06:03 25 MLS/HR Tamsulosin HCl 0.4 mg QPM PO 06/06/25 18:00 06/06/25 18:39 0.4 MG Hydrochlorothiazide 12.5 mg DAILY PO 06/06/25 10:00 06/07/25 10:40 12.5 MG Laboratory Results Laboratory Tests 06/06/25 04:30 Urinalysis Test 06/05/25 16:44 Urine Color Light-yellow (Yellow) Urine Clarity Turbid (Clear) H Urine pH 5.5 (5.0-9.0) Urine Specific [place] 1.013 (1.001-1.035) Urine Protein Negative (Negative) Urine Ketones Negative (Negative) Urine Blood Trace /uL (Negative) H Urine Nitrite Negative (Negative) Urine Bilirubin Negative (Negative) Urine Urobilinogen Normal mg/dL (Negative) Urine Leukocyte Esterase 1+ /uL (Negative) Urine RBC 10 /hpf (0 - 3) Urine Microscopic WBC 11 /HPF (0-3) H Urine Squamous Epithelial Cells Few /hpf (<5) Urine Bacteria None seen /hpf (None Seen) Urine Mucus Few (None Seen) Urine Glucose Normal mg/dL (Normal) Microbiology Microbiology Date/Time Source Procedure Growth Status 06/05/25 16:44 Voided Urine Urine Culture - Preliminary Resulted 06/05/25 15:00 Blood Blood Culture - Preliminary NO GROWTH AFTER 48 HOURS OF INCUBATION. Resulted Assessment/Plan Assessment/Plan 44-year-old male with a known history of hypertension, distal history of laparoscopic cholecystectomy presented to the hospital with a right flank pain with radiation to right groin and testicle found to have 1. Right flank pain suspect secondary to obstructive uropathy 2. Obstructive uropathy with vxgn-bi-blxnrxgw hydronephrosis with a 4 mm distal ureteric stone. 3. Leukocytosis likely reactive next 4. Morbid obesity class 3- -IV fluids, Flomax, urology consultation Plan discussed with: Patient Date of Service: Jun 07, 2025 Billing Provider: LONG PIERSON MD Common Visit Codes: [id number] INP/OBS CARE(MOD) LONG PIERSON MD Jun 07, 2025 15:32
--- NOTE | 2025-06-07 15:51 | DVHINCON2 ---
Date of service: Jun 07, 2025 Referring Physician Kiet Reason for Consultation stones History of Present Illness several day hx RLQ pain secondary to 4mm right ureteral stone,also nonobstructing left renal stone as well.none prior Past Medical History reviewed Past Surgical History recent GB Family History: Patient reports no known family medical history. Allergies: Coded Allergies: NO KNOWN ALLERGIES (Unverified , 05/21/25) Home Meds Active Scripts Hydrocodone-Acetaminophen (Hydrocodone Bitartrate/AC 5-325 mg) 1 Tab Tab, 1 TAB PO QID PRN, #30 TAB Prov:DORI BECKHAM MD 05/26/25 Metronidazole (Flagyl) 500 Mg Tab, 1 TAB PO TID, #30 TAB Prov:DORI BECKHAM MD 05/26/25 Levofloxacin Hemihydrate (LEVAQUIN 500 MG) 500 Mg Tab, 1 TAB PO DAILY, #10 TAB Prov:DORI BECKHAM MD 05/26/25 Reported Medications Lisinopril & Hydrochlorothiazi (Lisinopril/Hydrochlorothi) 1 Tab Tab, 1 TAB PO QAM 06/05/25 Current Medications Current Medications Medications (Trade) Dose Ordered Sig/Irasema Route PRN Reason Start Time Stop Time Status Last Admin Tamsulosin HCl (Flomax) 0.4 mg QPM PO 06/06/25 18:00 06/06/25 18:39 Review of Systems reviewed Vital Signs Vital Signs Date Time Temp Pulse Resp B/P (MAP) Pulse Ox O2 Delivery O2 Flow Rate FiO2 06/07/25 12:58 98.1 68 16 123/79 (94) 96 98.1 06/07/25 08:15 Room Air* 0 21 Labs/Diagnostic Data Labs Test 06/06/25 04:30 06/05/25 16:44 06/05/25 12:13 Range/Units White Blood Count 10.8 # 4.4-10.8 10^3/uL Red Blood Count 4.76 4.5-5.90 10^6/uL Hemoglobin 14.2 13.5-17.5 g/dL Hematocrit 41.1 41.0-53.0 % Mean Corpuscular Volume 86.4 80.0-100.0 fL Mean Corpuscular Hemoglobin 29.7 28.0-32.0 pg Mean Corpuscular Hemoglobin Concent 34.4 32.0-36.0 g/dL Red Cell Distribution Width 14.0 11.8-14.3 % Platelet Count 240 140-450 10^3/uL Mean Platelet Volume 8.7 6.9-10.8 fL Neutrophils (%) (Auto) 70.4 37.0-80.0 % Lymphocytes (%) (Auto) 17.8 10.0-50.0 % Monocytes (%) (Auto) 7.7 0.0-12.0 % Eosinophils (%) (Auto) 3.6 0.0-7.0 % Basophils (%) (Auto) 0.5 0.0-2.0 % Neutrophils # (Auto) 7.6 1.6-8.6 10 ^3/uL Lymphocytes # (Auto) 1.9 0.4-5.4 10 ^3/uL Monocytes # (Auto) 0.8 0-1.3 10 ^3/uL Eosinophils # (Auto) 0.4 0-0.8 10 ^3/uL Basophils # (Auto) 0.1 0-0.2 10 ^3/uL Nucleated Red Blood Cells 0.0 % Sodium Level 143 136-145 mmol/L Potassium Level 3.6 3.5-5.1 mmol/L Chloride Level 107 98-107 mmol/L Carbon Dioxide Level 28 20-31 mmol/L Anion Gap 8 5-15 Blood Urea Nitrogen 10 9-23 mg/dL Creatinine 0.95 0.700-1.30 mg/dL Glomerular Filtration Rate Calc 102 >90 mL/min BUN/Creatinine Ratio 10.5 10.0-20.0 Serum Glucose 88 74-106 mg/dL Calcium Level 10.0 8.7-10.4 mg/dL Total Bilirubin 0.8 0.2-1.0 mg/dL Aspartate Amino Transferase (AST) 15 13-40 U/L Alanine Aminotransferase (ALT) 16 7-40 U/L Alkaline Phosphatase 101 46-116 U/L Total Protein 6.5 5.7-8.2 g/dL Albumin 3.6 3.2-4.8 g/dL Urine Color Light-yellow Yellow Urine Clarity Turbid H Clear Urine pH 5.5 5.0-9.0 Urine Specific [place] 1.013 1.001-1.035 Urine Protein Negative Negative Urine Ketones Negative Negative Urine Blood Trace H Negative /uL Urine Nitrite Negative Negative Urine Bilirubin Negative Negative Urine Urobilinogen Normal Negative mg/dL Urine Leukocyte Esterase 1+ Negative /uL Urine RBC 10 0 - 3 /hpf Urine Microscopic WBC 11 H 0-3 /HPF Urine Squamous Epithelial Cells Few <5 /hpf Urine Bacteria None seen None Seen /hpf Urine Mucus Few None Seen Urine Glucose Normal Normal mg/dL Urine Opiates Screen Neg NEGATIVE Urine Fentanyl Screen Pos NEGATIVE Urine Barbiturates Screen Neg NEGATIVE Urine Phencyclidine Screen Neg NEGATIVE Urine Amphetamines Screen Neg NEGATIVE Urine Benzodiazepines Screen Neg NEGATIVE Urine Cocaine Screen Neg NEGATIVE Urine Cannabinoids Screen Neg NEGATIVE Prothrombin Time 10.7 9.3-11.8 sec Prothrombin Time INR 1.01 0.9-1.15 Lactic Acid Level 0.9 0.4-2.0 mmol/L Troponin I High Sensitivity 3 L </=54 ng/L Lipase 40 12-53 U/L Microbiology Date/Time Source Procedure Growth Status 06/05/25 16:44 Voided Urine Urine Culture - Preliminary Resulted 06/05/25 15:00 Blood Blood Culture - Preliminary NO GROWTH AFTER 48 HOURS OF INCUBATION. Resulted Assessment as above Plan/Recommendation KUB Plan discussed with: Patient KRISTINA POOLE MD Jun 07, 2025 15:51
--- NOTE | 2025-06-07 20:11 | DVH ---
Exam: XY KUB ABDOMEN SINGLE VIEW Indication: right ureteral stone,left renal stone Comparison: CT abdomen/pelvis 06/05/2025 Technique: 2 radiographic views of the abdomen. Findings: Redemonstrated calcifications at the left superior renal cortex. A faint calcification remains adjace nt to the right bladder wall, overlying the right S3 sacral ala. Right upper quadrant surgical clips . Nonobstructive bowel gas pattern. The lower chest is excluded. No acute osseous finding. Impression: 1. No appreciable change in position of urinary system calcifications from 2 days prior.
[2025-06-08] VITALS (8 sets, daily range): BP systolic 127–149; BP diastolic 73–105; PULSE 67–111; RESP 16–21; TEMP 97.6–98.6; O2SAT 94–100
--- NOTE | 2025-06-08 14:35 | DVH ---
Date: 06/08/2025 02:01 PM Examination: XY KUB ABDOMEN SINGLE VIEW History: abdominal pain; Kidney Stones Comparison: XY KUB ABDOMEN SINGLE VIEW on DOS: 06/07/25, CT CT AB PEL WO CON-NO ORAL OR IV on DOS: 06/05/25, MRI MRI ABDOMEN W AND WO on DOS: 05/25/25, US ABDOMEN LIMITED on DOS: 05/22/25 TECHNIQUE: Frontal views of the abdomen was obtained. FINDINGS: Bowel gas pattern is unremarkable. Calcific density measuring 1.2 cm projects over the expected regio n of the left kidney. The lung bases are unremarkable. No acute osseous abnormality identified. IMPRESSION: Nonobstructive bowel gas pattern. Calcific density measuring 1.2 cm projects over the expected region of the left kidney.
--- NOTE | 2025-06-08 15:16 | DVHINCON2 ---
Date of service: Jun 08, 2025 Reason for Consultation Symptomatic 4 mm right ureteral calculusSymptomatic 4 mm right ureteral calculus History of Present Illness Patient was seen by Dr. Plunkett the covering urologist yesterday regarding right- sided flank pain secondary to a 4 mm right ureteral calculus. He also has a no nobstructing 14 mm left renal calculus.Symptomatic 4 mm right ureteral calculus Family History: Patient reports no known family medical history. Allergies: Coded Allergies: NO KNOWN ALLERGIES (Unverified , 05/21/25) Home Meds Active Scripts Hydrocodone-Acetaminophen (Hydrocodone Bitartrate/AC 5-325 mg) 1 Tab Tab, 1 TAB PO QID PRN, #30 TAB Prov:DORI BECKHAM MD 05/26/25 Metronidazole (Flagyl) 500 Mg Tab, 1 TAB PO TID, #30 TAB Prov:DORI BECKHAM MD 05/26/25 Levofloxacin Hemihydrate (LEVAQUIN 500 MG) 500 Mg Tab, 1 TAB PO DAILY, #10 TAB Prov:DORI BECKHAM MD 05/26/25 Reported Medications Lisinopril & Hydrochlorothiazi (Lisinopril/Hydrochlorothi) 1 Tab Tab, 1 TAB PO QAM 06/05/25 Vital Signs Vital Signs Date Time Temp Pulse Resp B/P (MAP) Pulse Ox O2 Delivery O2 Flow Rate FiO2 06/08/25 13:00 98.3 77 21 130/88 (102) 96 98.3 06/08/25 08:00 Room Air* 0 21 Labs/Diagnostic Data Labs Test 06/06/25 04:30 06/05/25 16:44 06/05/25 12:13 Range/Units White Blood Count 10.8 # 4.4-10.8 10^3/uL Red Blood Count 4.76 4.5-5.90 10^6/uL Hemoglobin 14.2 13.5-17.5 g/dL Hematocrit 41.1 41.0-53.0 % Mean Corpuscular Volume 86.4 80.0-100.0 fL Mean Corpuscular Hemoglobin 29.7 28.0-32.0 pg Mean Corpuscular Hemoglobin Concent 34.4 32.0-36.0 g/dL Red Cell Distribution Width 14.0 11.8-14.3 % Platelet Count 240 140-450 10^3/uL Mean Platelet Volume 8.7 6.9-10.8 fL Neutrophils (%) (Auto) 70.4 37.0-80.0 % Lymphocytes (%) (Auto) 17.8 10.0-50.0 % Monocytes (%) (Auto) 7.7 0.0-12.0 % Eosinophils (%) (Auto) 3.6 0.0-7.0 % Basophils (%) (Auto) 0.5 0.0-2.0 % Neutrophils # (Auto) 7.6 1.6-8.6 10 ^3/uL Lymphocytes # (Auto) 1.9 0.4-5.4 10 ^3/uL Monocytes # (Auto) 0.8 0-1.3 10 ^3/uL Eosinophils # (Auto) 0.4 0-0.8 10 ^3/uL Basophils # (Auto) 0.1 0-0.2 10 ^3/uL Nucleated Red Blood Cells 0.0 % Sodium Level 143 136-145 mmol/L Potassium Level 3.6 3.5-5.1 mmol/L Chloride Level 107 98-107 mmol/L Carbon Dioxide Level 28 20-31 mmol/L Anion Gap 8 5-15 Blood Urea Nitrogen 10 9-23 mg/dL Creatinine 0.95 0.700-1.30 mg/dL Glomerular Filtration Rate Calc 102 >90 mL/min BUN/Creatinine Ratio 10.5 10.0-20.0 Serum Glucose 88 74-106 mg/dL Calcium Level 10.0 8.7-10.4 mg/dL Total Bilirubin 0.8 0.2-1.0 mg/dL Aspartate Amino Transferase (AST) 15 13-40 U/L Alanine Aminotransferase (ALT) 16 7-40 U/L Alkaline Phosphatase 101 46-116 U/L Total Protein 6.5 5.7-8.2 g/dL Albumin 3.6 3.2-4.8 g/dL Urine Color Light-yellow Yellow Urine Clarity Turbid H Clear Urine pH 5.5 5.0-9.0 Urine Specific [place] 1.013 1.001-1.035 Urine Protein Negative Negative Urine Ketones Negative Negative Urine Blood Trace H Negative /uL Urine Nitrite Negative Negative Urine Bilirubin Negative Negative Urine Urobilinogen Normal Negative mg/dL Urine Leukocyte Esterase 1+ Negative /uL Urine RBC 10 0 - 3 /hpf Urine Microscopic WBC 11 H 0-3 /HPF Urine Squamous Epithelial Cells Few <5 /hpf Urine Bacteria None seen None Seen /hpf Urine Mucus Few None Seen Urine Glucose Normal Normal mg/dL Urine Opiates Screen Neg NEGATIVE Urine Fentanyl Screen Pos NEGATIVE Urine Barbiturates Screen Neg NEGATIVE Urine Phencyclidine Screen Neg NEGATIVE Urine Amphetamines Screen Neg NEGATIVE Urine Benzodiazepines Screen Neg NEGATIVE Urine Cocaine Screen Neg NEGATIVE Urine Cannabinoids Screen Neg NEGATIVE Prothrombin Time 10.7 9.3-11.8 sec Prothrombin Time INR 1.01 0.9-1.15 Lactic Acid Level 0.9 0.4-2.0 mmol/L Troponin I High Sensitivity 3 L </=54 ng/L Lipase 40 12-53 U/L Microbiology Date/Time Source Procedure Growth Status 06/05/25 16:44 Voided Urine Urine Culture - Final Complete 06/05/25 15:00 Blood Blood Culture - Preliminary NO GROWTH AFTER 72 HOURS OF INCUBATION. Resulted PATIENT: VIDHYA DIAZ ACCT: [id number] UNIT: [id number] : 1980 LOC: ER ROOM / BED: / AGE / SEX: 44 / M ADM STATUS: REG ER SERVICE 1144 ORDERING PHYSICIAN: MIRIAM SILVA DO PROCEDURE(s): ABPL - CT AB PEL WO CON-NO ORAL OR IV REASON: r abd pain, post op ORDER NUMBER(s): [id number], ACCESSION NUMBER(s): [id number] Indication: r abd pain, post op Technique: CT axial images of the abdomen and pelvis are obtained without contrast. Coronal and sagittal reformats were obtained. Radiation Dose Information: CTDI volume is 26 mGy. Dose-length product is 1565 mGy*cm Comparison: None FINDINGS: There is limited interpretation of the abdomen and pelvis without administration of intravenous contrast. Lung bases demonstrate no pleural effusion. Adrenal glands, spleen, pancreas unremarkable in shape. Hepatic steatosis. Cholecystectomy. The right kidney demonstrates kioc-kw-lbirmbkcn right hydroureteronephrosis secondary to 4 mm distal ureteral calculus. Nonobstructing right renal calculus measuring 2 mm. Nonobstructing left renal calculi up to 14 mm. Stomach is moderately distended. Small bowel loops are normal in caliber. Moderate volume stool in the colon. Normal appendix. Bladder partially distended. No free pelvic fluid. No inguinal lymphadenopathy. Mild anterior wall stranding which may be secondary to recent surgery /cholecystectomy. Cspm-to-jbdchkdr thoracolumbar degenerative disc disease. IMPRESSION: Limited evaluation without contrast. Duzp-yj-kvxxaiih right hydroureteronephrosis secondary to a 4 mm distal right ureteral calculus. Nonobstructing right renal calculus measuring 2 mm. Nonobstructing left renal calculi up to 14 mm. Interval cholecystectomy. ATED BY: ELVIA GOODMAN MD DICTATED DATE/TIME: 06/05/25 1254 SIGNED BY: ELVIA GOODMAN MD SIGNED DATE/TIME: 06/05/25 125 CC: Assessment 4 mm distal right ureteral calculus with moderate hydronephrosis and obstructive uropathy. PATIENT: VIDHYA DIAZ ACCT: [id number] UNIT: [id number] : 1980 LOC: ER ROOM / BED: / AGE / SEX: 44 / M ADM STATUS: REG ER SERVICE 1144 ORDERING PHYSICIAN: MIRIAM SILVA DO PROCEDURE(s): ABPL - CT AB PEL WO CON-NO ORAL OR IV REASON: r abd pain, post op ORDER NUMBER(s): [id number], ACCESSION NUMBER(s): [id number] Indication: r abd pain, post op Technique: CT axial images of the abdomen and pelvis are obtained without contrast. Coronal and sagittal reformats were obtained. Radiation Dose Information: CTDI volume is 26 mGy. Dose-length product is 1565 mGy*cm Comparison: None FINDINGS: There is limited interpretation of the abdomen and pelvis without administration of intravenous contrast. Lung bases demonstrate no pleural effusion. Adrenal glands, spleen, pancreas unremarkable in shape. Hepatic steatosis. Cholecystectomy. The right kidney demonstrates mxml-wm-yruvqshhe right hydroureteronephrosis secondary to 4 mm distal ureteral calculus. Nonobstructing right renal calculus measuring 2 mm. Nonobstructing left renal calculi up to 14 mm. Stomach is moderately distended. Small bowel loops are normal in caliber. Moderate volume stool in the colon. Normal appendix. Bladder partially distended. No free pelvic fluid. No inguinal lymphadenopathy. Mild anterior wall stranding which may be secondary to recent surgery /felicita cystectomy. Hgwt-yg-fypguzuf thoracolumbar degenerative disc disease. IMPRESSION: Limited evaluation without contrast. Ttvf-dd-udmzbgiz right hydroureteronephrosis secondary to a 4 mm distal right ureteral calculus. Nonobstructing right renal calculus measuring 2 mm. Nonobstructing left renal calculi up to 14 mm. Interval cholecystectomy. ATED BY: ELVIA GOODMAN MD DICTATED DATE/TIME: 06/05/251253 SIGNED BY: ELVIA GOODMAN MD SIGNED DATE/TIME: 06/05/251253 CC: Plan/Recommendation We will plan for right ureteroscope epic laser lithotripsy and right ureteral stent placement PATIENT: VIDHYA DIAZ ACCT: [id number] UNIT: [id number] : 1980 LOC: ER ROOM / BED: / AGE / SEX: 44 / M ADM STATUS: REG ER SERVICE 1144 ORDERING PHYSICIAN: MIRIAM SILVA DO PROCEDURE(s): ABPL - CT AB PEL WO CON-NO ORAL OR IV REASON: r abd pain, post op ORDER NUMBER(s): [id number], ACCESSION NUMBER(s): [id number] Indication: r abd pain, post op Technique: CT axial images of the abdomen and pelvis are obtained without contrast. Coronal and sagittal reformats were obtained. Radiation Dose Information: CTDI volume is 26 mGy. Dose-length product is 1565 mGy*cm Comparison: None FINDINGS: There is limited interpretation of the abdomen and pelvis without administration of intravenous contrast. Lung bases demonstrate no pleural effusion. Adrenal glands, spleen, pancreas unremarkable in shape. Hepatic steatosis. Cholecystectomy. The right kidney demonstrates hoen-gy-yxuhpaqrl right hydroureteronephrosis secondary to 4 mm distal ureteral calculus. Nonobstructing right renal calculus measuring 2 mm. Nonobstructing left renal calculi up to 14 mm. Stomach is moderately distended. Small bowel loops are normal in caliber. Moderate volume stool in the colon. Normal appendix. Bladder partially distended. No free pelvic fluid. No inguinal lymphadenopathy. Mild anterior wall stranding which may be secondary to recent surgery /cholecystectomy. Dyib-ne-hqifhjav thoracolumbar degenerative disc disease. IMPRESSION: Limited evaluation without contrast. Dtpk-xb-kesmzykv right hydroureteronephrosis secondary to a 4 mm distal right ureteral calculus. Nonobstructing right renal calculus measuring 2 mm. Nonobstructing left renal calculi up to 14 mm. Interval cholecystectomy. ATED BY: ELVIA GOODMAN MD DICTATED DATE/TIME: 06/05/25 1254 SIGNED BY: ELVIA GOODMAN MD SIGNED DATE/TIME: 06/05/25 1254 CC: Plan discussed with: Patient, Other OSIRIS DARBY MD Jun 08, 2025 15:16
--- NOTE | 2025-06-08 15:37 | MEDREC ---
[facility] Intervention Section I [facility] Intervention: Review courses of therapy (CTX shows non-obstructing renal calculi with limited evaluation without contrast. For renal calculi (kidney stones), antibiotic prophylaxis is not routinely recommended) RANJITH CALLES [facility] RESIDENT Jun 08, 2025 15:37
--- NOTE | 2025-06-08 16:06 | DVHPN2 ---
Subjective Patient has stated that pain is manageable, CT urogram has been ordered.. Changes from previous H/P or p: No Changes Gastrointestinal: Abdominal Pain Objective Vitals Vital Signs Date Time Temp Pulse Resp B/P (MAP) Pulse Ox O2 Delivery O2 Flow Rate FiO2 06/08/25 13:00 98.3 77 21 130/88 (102) 96 98.3 06/08/25 08:00 Room Air* 0 21 Intake/Output Intake and Output 06/08/25 07:00 Intake Total 5400 ml Balance 5400 ml Intake Oral 4100 ml IV Total 1300 ml # Voids 9 # Bowel Movements 3 Exam HEENT pupils are reactive Neck is supple CV is S1-S2 regular rate and rhythm Respiratory diminished BS on bases GI positive bowel sounds Extremity no edema GENERAL I [employer]ARM[employer] no motor deficit Medications Current Medications Medications Dose Ordered Sig/Irasema Route Start Time Stop Time Status Last Admin Dose Admin Sodium Chloride 1,000 ml @ 120 mls/hr Q8H20M IV 06/05/25 14:30 06/08/25 09:10 120 MLS/HR Acetaminophen/ Hydrocodone Bitart 1 tab Q4HP PRN PO 06/05/25 14:30 06/07/25 21:54 1 TAB Ondansetron HCl 4 mg Q4HP PRN IV 06/05/25 14:30 Acetaminophen 650 mg Q6HP PRN PO 06/05/25 14:30 Morphine Sulfate 2 mg Q4HPRN PRN IV 06/05/25 15:00 06/07/25 08:18 2 MG Lisinopril 10 mg QAM PO 06/06/25 07:00 06/08/25 06:13 10 MG Piperacillin Sod/ Tazobactam Sod 100 ml @ 25 mls/hr Q8HR IV 06/05/25 14:30 06/08/25 15:02 25 MLS/HR Tamsulosin HCl 0.4 mg QPM PO 06/06/25 18:00 06/07/25 17:50 0.4 MG Hydrochlorothiazide 12.5 mg DAILY PO 06/06/25 10:00 06/08/25 10:38 12.5 MG Laboratory Results Laboratory Tests 06/06/25 04:30 Urinalysis Test 06/05/25 16:44 Urine Color Light-yellow (Yellow) Urine Clarity Turbid (Clear) H Urine pH 5.5 (5.0-9.0) Urine Specific [place] 1.013 (1.001-1.035) Urine Protein Negative (Negative) Urine Ketones Negative (Negative) Urine Blood Trace /uL (Negative) H Urine Nitrite Negative (Negative) Urine Bilirubin Negative (Negative) Urine Urobilinogen Normal mg/dL (Negative) Urine Leukocyte Esterase 1+ /uL (Negative) Urine RBC 10 /hpf (0 - 3) Urine Microscopic WBC 11 /HPF (0-3) H Urine Squamous Epithelial Cells Few /hpf (<5) Urine Bacteria None seen /hpf (None Seen) Urine Mucus Few (None Seen) Urine Glucose Normal mg/dL (Normal) Microbiology Microbiology Date/Time Source Procedure Growth Status 06/05/25 16:44 Voided Urine Urine Culture - Final Complete 06/05/25 15:00 Blood Blood Culture - Preliminary NO GROWTH AFTER 72 HOURS OF INCUBATION. Resulted Assessment/Plan Assessment/Plan 44-year-old male with a known history of hypertension, distal history of laparoscopic cholecystectomy presented to the hospital with a right flank pain with radiation to right groin and testicle found to have 1. Right flank pain suspect secondary to obstructive uropathy 2. Obstructive uropathy with qzsx-[id number] hydronephrosis with a 4 mm distal ureteric stone. 3. Leukocytosis likely reactive next 4. Morbid obesity class 3- -IV fluids, Flomax, urology consultation appreciated -CT urogram if shows no obstruction can be discharged home. Plan discussed with: Patient, Spouse Date of Service: Jun 08, 2025 Billing Provider: LONG PIERSON MD Common Visit Codes: [id number] INP/OBS CARE(MOD) LONG PIERSON MD Jun 08, 2025 16:06
[2025-06-08] MEDS: IOHEXOL 300 MG/ML 100ML BOTTLE IJ ONE (17:45)
--- NOTE | 2025-06-08 18:21 | DVH ---
EXAM: CT CT AB PEL WITH IV CON ONLY HISTORY: CT Urogram for evaluation of right ureteral stone, 4 mm TECHNIQUE: Volumetric multidetector CT images of the abdomen and pelvis were obtained after the admin istration of intravenous contrast. All CT scans at this facility use dose modulation, iterative recon struction, and/or weight based dosing when appropriate to reduce radiation dose to as low as reasonab ly achievable. COMPARISON: CT CT AB PEL WO CON-NO ORAL OR IV on DOS: 06/05/25 FINDINGS: [LOWER CHEST]: The partially visualized lung bases are clear without a pleural effusion. [LIVER]: Normal hepatic size without suspicious focal lesion. [GALLBLADDER AND BILIARY TREE]: Surgically absent. [SPLEEN]: Unremarkable. [PANCREAS]: Unremarkable. [ADRENAL GLANDS]: Unremarkable [KIDNEYS]: No hydronephrosis. 12 mm stone of the left superior renal calices peak right distal 4 mm s tone without significant hydroureter [BLADDER]: Unremarkable for the degree distention. [REPRODUCTIVE ORGANS]: Unremarkable. [BOWEL/MESENTERY]: Stomach is normal. No CT evidence of bowel obstruction. [ASCITES]: Absent [LYMPHADENOPATHY]: No pathologically enlarged lymph nodes by CT size criteria [VASCULATURE]: No aneurysmal dilatation. [ABDOMINAL WALL]: Subcutaneous adipose tissue iliacus extending posteriorly into the extraperitoneal space correlate for sequelae of prior scarring versus underlying inflammation/infection. No drainabl e fluid collection [MUSCULOSKELETAL]: No acute fracture or aggressive focal osseous lesion. IMPRESSION: 1. No hydronephrosis. 2. Nonobstructive 4 mm stone in the distal right ureter. 3. Nonobstructive 12 mm stone in the left superior renal calices. 4. Subcutaneous adipose tissue iliacus extending posteriorly into the extraperitoneal space correlate for sequelae of prior scarring versus underlying inflammation/infection. 5. No drainable fluid collection.
[2025-06-09] VITALS (7 sets, daily range): BP systolic 82–124; BP diastolic 81–94; PULSE 65–80; RESP 14–19; TEMP 97.2–98.1; O2SAT 94–99
--- NOTE | 2025-06-09 07:58 | DVHPN2 ---
Progress Note - Dictate Date Seen: Jun 09, 2025 Medical Necessity Reason Pt with a Central, PICC or Fol: No Medical Necessity Reason Admitted for right-sided flank pain and he has a nonobstructing 4 mm right distal ureteral calculus confirmed on CT urogram. Today he is complaining of flank pain on the left side where he is noted to have a 12-13 mm nonobstructing kidney stone. I had originally intended to proceed with a right ureteroscope epic laser lithotripsy and stent placement only. However since he is pain-free on the right side, he would rather have both stone treated at the same time with ESWL. Unfortunately the ESWL is not available this week. He will be discharged with pain control and schedule outpatient lithotripsy of the two stones as soon as feasible. Subjective Left flank pain vital signs Vital Sign Date Time Temp Pulse Resp B/P (MAP) Pulse Ox O2 Delivery O2 Flow Rate FiO2 06/09/25 05:00 97.2 65 14 121/86 (98) 94 97.2 06/08/25 20:00 Room Air* 0 21 Total Intake and Output 06/08/25 06/08/25 06/09/25 15:00 23:00 07:00 Intake Total 920 ml 100 ml Balance 920 ml 100 ml medications Current Medications Medications Dose Ordered Sig/Irasema Route Start Time Stop Time Status Last Admin Dose Admin Sodium Chloride 1,000 ml @ 120 mls/hr Q8H20M IV 06/05/25 14:30 06/08/25 17:30 120 MLS/HR Acetaminophen/ Hydrocodone Bitart 1 tab Q4HP PRN PO 06/05/25 14:30 06/08/25 21:52 1 TAB Ondansetron HCl 4 mg Q4HP PRN IV 06/05/25 14:30 Acetaminophen 650 mg Q6HP PRN PO 06/05/25 14:30 Morphine Sulfate 2 mg Q4HPRN PRN IV 06/05/25 15:00 06/07/25 08:18 2 MG Lisinopril 10 mg QAM PO 06/06/25 07:00 06/08/25 06:13 10 MG Piperacillin Sod/ Tazobactam Sod 100 ml @ 25 mls/hr Q8HR IV 06/05/25 14:30 06/09/25 05:54 25 MLS/HR Tamsulosin HCl 0.4 mg QPM PO 06/06/25 18:00 06/08/25 18:48 0.4 MG Hydrochlorothiazide 12.5 mg DAILY PO 06/06/25 10:00 06/08/25 10:38 12.5 MG objective PATIENT: VIDHYA DIAZ ACCT: [id number] UNIT: [id number] : 1980 LOC: ER ROOM / BED: / AGE / SEX: 44 / M ADM STATUS: REG ER SERVICE 1144 ORDERING PHYSICIAN: MIRIAM SILVA DO PROCEDURE(s): ABPL - CT AB PEL WO CON-NO ORAL OR IV REASON: r abd pain, post op ORDER NUMBER(s): [id number], ACCESSION NUMBER(s): [id number] Indication: r abd pain, post op Technique: CT axial images of the abdomen and pelvis are obtained without contrast. Coronal and sagittal reformats were obtained. Radiation Dose Information: CTDI volume is 26 mGy. Dose-length product is 1565 mGy*cm Comparison: None FINDINGS: There is limited interpretation of the abdomen and pelvis without administration of intravenous contrast. Lung bases demonstrate no pleural effusion. Adrenal glands, spleen, pancreas unremarkable in shape. Hepatic steatosis. Cholecystectomy. The right kidney demonstrates hqeq-jm-[id number] right hydroureteronephrosis secondary to 4 mm distal ureteral calculus. Nonobstructing right renal calculus measuring 2 mm. Nonobstructing left renal calculi up to 14 mm. Stomach is moderately distended. Small bowel loops are normal in caliber. Moderate volume stool in the colon. Normal appendix. Bladder partially distended. No free pelvic fluid. No inguinal lymphadenopathy. Mild anterior wall stranding which may be secondary to recent surgery /cholecystectomy. Qtuh-io-zqhlmoqr thoracolumbar degenerative disc disease. IMPRESSION: Limited evaluation without contrast. Rbtf-yy-tlvzrlkj right hydroureteronephrosis secondary to a 4 mm distal right ureteral calculus. Nonobstructing right renal calculus measuring 2 mm. Nonobstructing left renal calculi up to 14 mm. Interval cholecystectomy. ATED BY: ELVIA GOODMAN MD DICTATED DATE/TIME: 06/05/25 1254 SIGNED BY: ELVIA GOODMAN MD SIGNED DATE/TIME: 06/05/25 1254 CC: laboratory and microbiology Laboratory Tests 06/06/25 04:30 Test 06/06/25 04:30 Range/Units Serum Glucose 88 74-106 mg/dL Assessment/Plan 4 mm distal right ureteral calculus 12 mm left renal calculus Bilateral flank pain Patient will be discharged with pain control and proceed with outpatient lithotripsy of both stones at the same setting Plan discussed with: Patient OSIRIS DARBY MD Jun 09, 2025 07:57
[2025-06-09] MEDS ORDERED: TAMS-35 PO (14:06)
--- NOTE | 2025-06-09 14:08 | DVHDS2 ---
Discharge Summary Date of Admission Jun 05, 2025 at 14:24 Date of Discharge: Jun 09, 2025 Labs/Diagnostic Data: Laboratory Results Test 06/06/25 04:30 06/05/25 16:44 06/05/25 12:13 White Blood Count 10.8 10^3/uL (4.4-10.8) Red Blood Count 4.76 10^6/uL (4.5-5.90) Hemoglobin 14.2 g/dL (13.5-17.5) Hematocrit 41.1 % (41.0-53.0) Mean Corpuscular Volume 86.4 fL (80.0-100.0) Mean Corpuscular Hemoglobin 29.7 pg (28.0-32.0) Mean Corpuscular Hemoglobin Concent 34.4 g/dL (32.0-36.0) Red Cell Distribution Width 14.0 % (11.8-14.3) Platelet Count 240 10^3/uL (140-450) Mean Platelet Volume 8.7 fL (6.9-10.8) Neutrophils (%) (Auto) 70.4 % (37.0-80.0) Lymphocytes (%) (Auto) 17.8 % (10.0-50.0) Monocytes (%) (Auto) 7.7 % (0.0-12.0) Eosinophils (%) (Auto) 3.6 % (0.0-7.0) Basophils (%) (Auto) 0.5 % (0.0-2.0) Neutrophils # (Auto) 7.6 10 ^3/uL (1.6-8.6) Lymphocytes # (Auto) 1.9 10 ^3/uL (0.4-5.4) Monocytes # (Auto) 0.8 10 ^3/uL (0-1.3) Eosinophils # (Auto) 0.4 10 ^3/uL (0-0.8) Basophils # (Auto) 0.1 10 ^3/uL (0-0.2) Nucleated Red Blood Cells 0.0 % Sodium Level 143 mmol/L (136-145) Potassium Level 3.6 mmol/L (3.5-5.1) Chloride Level 107 mmol/L (98-107) Carbon Dioxide Level 28 mmol/L (20-31) Anion Gap 8 (5-15) Blood Urea Nitrogen 10 mg/dL (9-23) Creatinine 0.95 mg/dL (0.700-1.30) Glomerular Filtration Rate Calc 102 mL/min (>90) BUN/Creatinine Ratio 10.5 (10.0-20.0) Serum Glucose 88 mg/dL (74-106) Calcium Level 10.0 mg/dL (8.7-10.4) Total Bilirubin 0.8 mg/dL (0.2-1.0) Aspartate Amino Transferase (AST) 15 U/L (13-40) Alanine Aminotransferase (ALT) 16 U/L (7-40) Alkaline Phosphatase 101 U/L (46-116) Total Protein 6.5 g/dL (5.7-8.2) Albumin 3.6 g/dL (3.2-4.8) Urine Color Light-yellow (Yellow) Urine Clarity Turbid (Clear) Urine pH 5.5 (5.0-9.0) Urine Specific [place] 1.013 (1.001-1.035) Urine Protein Negative (Negative) Urine Ketones Negative (Negative) Urine Blood Trace /uL (Negative) Urine Nitrite Negative (Negative) Urine Bilirubin Negative (Negative) Urine Urobilinogen Normal mg/dL (Negative) Urine Leukocyte Esterase 1+ /uL (Negative) Urine RBC 10 /hpf (0 - 3) Urine Microscopic WBC 11 /HPF (0-3) Urine Squamous Epithelial Cells Few /hpf (<5) Urine Bacteria None seen /hpf (None Seen) Urine Mucus Few (None Seen) Urine Glucose Normal mg/dL (Normal) Urine Opiates Screen Neg (NEGATIVE) Urine Fentanyl Screen Pos (NEGATIVE) Urine Barbiturates Screen Neg (NEGATIVE) Urine Phencyclidine Screen Neg (NEGATIVE) Urine Amphetamines Screen Neg (NEGATIVE) Urine Benzodiazepines Screen Neg (NEGATIVE) Urine Cocaine Screen Neg (NEGATIVE) Urine Cannabinoids Screen Neg (NEGATIVE) Prothrombin Time 10.7 sec (9.3-11.8) Prothrombin Time INR 1.01 (0.9-1.15) Lactic Acid Level 0.9 mmol/L (0.4-2.0) Troponin I High Sensitivity 3 ng/L (</=54) Lipase 40 U/L (12-53) Other Laboratory Tests 06/06/25 04:30 Brief Hx & Hospital Course: 44-year-old male with a known history of hypertension, history of laparoscopic cholecystectomy presented to the hospital with a right flank pain with radiation to right groin and testicle found to have obstructive uropathy. Patient's has a mmks-xh-fonmzfwd hydronephrosis with a 4 mm distal ureteric stone. Patient's leukocytosis was reactive. Patient was given pain medication as well as Flomax. Urology evaluated the patient patient does have right ureteric stone which is causing ytzu-ll-xlnpflfd hydronephrosis as well as left renal stone. Patient is being discharged under stable condition as urology cleared the patient to be discharged with the outpatient follow up for cystoscopy for both stones. Patient is currently understand verbalized understanding and agreeable to plan. Condition at Discharge: Stable Final Diagnosis/Problems List 44-year-old male with a known history of hypertension, distal history of laparoscopic cholecystectomy presented to the hospital with a right flank pain with radiation to right groin and testicle found to have 1. Right flank pain suspect secondary to obstructive uropathy 2. Obstructive uropathy with nwke-hg-tnzkyzqz hydronephrosis with a 4 mm distal ureteric stone. 3. Leukocytosis likely reactive next 4. Morbid obesity class 3- Discharge Disposition: Home SNF Discharge Will this Physician continue t: No Discharge Instruct/Medications Diet: Cardiac 2g Na,low cholest Activity: See Comment Activity comment: No driving, no signing legal documents, no playing on machinery while on narcotics Follow Up/Referral: Follow up with the PCP in one week Follow up with Dr. King Cuadra urology in one week Medications: Flomax as prescribed. New Medications: Tamsulosin Hcl (Flomax) 0.4 Mg Cap 0.4 MG PO QPM, #14 CAP Continued Medications: Hydrocodone-Acetaminophen (Hydrocodone Bitartrate/AC 5-325 mg) 1 Tab Tab 1 TAB PO QID PRN, #30 TAB Lisinopril & Hydrochlorothiazi (Lisinopril/Hydrochlorothi) 1 Tab Tab 1 TAB PO QAM Discontinued Medications: Levofloxacin Hemihydrate (Levaquin 500 Mg) 500 Mg Tab 1 TAB PO DAILY, #10 TAB Metronidazole (Flagyl) 500 Mg Tab 1 TAB PO TID, #30 TAB Scheduled Lisinopril & Hydrochlorothiazi (Lisinopril/Hydrochlorothi), 1 TAB PO QAM, (Reported) Tamsulosin Hcl (Flomax), 0.4 MG PO QPM Scheduled PRN Hydrocodone-Acetaminophen (Hydrocodone Bitartrate/AC 5-325 mg), 1 TAB PO QID PRN Discharge Statement: "Patient was advised to return to the ER or call 911 if any headaches, dizziness, shortness of breath, chest pain, abdominal pain, bleeding, fevers, or worsening of medical condition. Patient was counseled about treatment plan, medications, possible side effects, patientverbalized understanding. All questions were answered to the best of my ability. This discharge took greater then 30 minutes in planning, reviewing documentation, counseling the patient, and discussing with other team members." ASSESSMENT ASSESSMENT Assessment 44-year-old male with a known history of hypertension, distal history of laparoscopic cholecystectomy presented to the hospital with a right flank pain with radiation to right groin and testicle found to have 1. Right flank pain suspect secondary to obstructive uropathy 2. Obstructive uropathy with bohw-ym-dxsoiayz hydronephrosis with a 4 mm distal ureteric stone. 3. Leukocytosis likely reactive next 4. Morbid obesity class 3- Date of Service: Jun 09, 2025 Billing Provider: LONG PIERSON MD Common Visit Codes: [id number] DISCH DAY >30min LONG PIERSON MD Jun 09, 2025 14:08
== END 2025-06-09 18:20 | disposition home or self-care (01) | DRG 690 ==
LOC: ER 11:33 → OVERFLOW 14:24 → EAST 21:30
PROVIDERS: ADMIT Internal Medicine; ATTEND Internal Medicine
DX: N13.6 Pyonephrosis (principal); Z68.41 Body mass index [BMI] 40.0-44.9, adult; I10 Essential (primary) hypertension; E66.813 Obesity, class 3; Z82.49 Family history of ischemic heart disease and other diseases of the circulatory system; Z83.3 Family history of diabetes mellitus; Z90.49 Acquired absence of other specified parts of digestive tract; Z79.899 Other long term (current) drug therapy
CPT/HCPCS: 36415; 71045; 74018; 74176; 74177; 80053; 80307; 81001; 83605; 83690; 84484; 85025; 85610; 87040; 87086; G0378; J2405; J2543

== ENCOUNTER 2025-06-17 04:01 | Inpatient (IN) | payer OTHER ==
[2025-06-17] VITALS (7 sets, daily range): BP systolic 121–139; BP diastolic 81–93; PULSE 54–100; RESP 12–18; TEMP 96.6–98.5; O2SAT 92–100
[~2025-06-17] VITALS: Ht 180.3 cm; Wt 129.5 kg
[~2025-06-17 04:01] MED LIST changes: -LEVO500T91 PO; +LISI-283 PO; -METR-344 PO; +TAMS-35 PO
--- NOTE | 2025-06-17 04:20 | ED.PDOC ---
General HPI Comments 44-year-old male recently admitted for kidney stone status post lithotripsy 2 days ago now complains of recurrent sharp left flank pain with nausea and malaise worse for the last 2 hours. Unprovoked. No known modifying factors Chief Complaint: Urinary Time Seen by MD: 04:07 Reviewed notes: Nurses Notes Allergies: Coded Allergies: NO KNOWN ALLERGIES (Unverified , 05/21/25) Home Meds Active Scripts Tamsulosin Hcl (Flomax) 0.4 Mg Cap, 0.4 MG PO QPM, #14 CAP Prov:LONG PIERSON MD 06/09/25 Hydrocodone-Acetaminophen (Hydrocodone Bitartrate/AC 5-325 mg) 1 Tab Tab, 1 TAB PO QID PRN, #30 TAB Prov:DORI BECKHAM MD 05/26/25 Reported Medications Lisinopril & Hydrochlorothiazi (Lisinopril/Hydrochlorothi) 1 Tab Tab, 1 TAB PO QAM 06/05/25 Information Source: Patient, Spouse Mode of Arrival: Ambulatory Severity: Moderate, Severe Timing: Days Duration: Since onset Past Medical History PAST MEDICAL HISTORY: HTN Surgical History: Cholecystectomy Family History Family History: Reviewed,noncontributory to illness Social History Smoker: Non-Smoker Alcohol: Denies ETOH Use Drugs: Denies Drug Use Lives In: Home Constitutional: reports: malaise Gastrointestinal: reports: abdominal pain, nausea Genitourinary: reports: flank pain All Other Systems: Reviewed and Negative Physical Exam Exam Comments Appears uncomfortable General Appearance: Moderate Distress, Obese HEENT: Normal ENT Inspection, Pharynx Normal, TMs Normal Neck: Full Range of Motion, Non-Tender, Normal, Normal Inspection Respiratory: Chest Non-Tender, Lungs Clear, No Accessory Muscle Use, No Respiratory Distress, Normal Breath Sounds Cardiovascular: No Edema, No JVD, No Murmur, No Gallop, Normal Peripheral Pulses, Regular Rate/Rhythm Breast Exam: Deferred Gastrointestinal: Tenderness, Other (Left CVA tenderness) Genitalia: Deferred Pelvic: Deferred Rectal: Deferred Extremities: No calf tenderness, Normal capillary refill, Normal inspection, Normal range of motion, Non-tender, No pedal edema Musculoskeletal : Apperance: Normal Neurologic: Alert, bleach chlorinator II-XII nml as Tested, No Motor Deficits, Normal Affect, Normal Mood, No Sensory Deficits Cerebellar Function: Normal Reflexes: Normal Skin: Dry, Normal Color, Warm Lymphatic: No Adenopathy Was a procedure done? Was a procedure done?: No Differential Diagnosis Kidney stone (Female): Aortic dissection, Appendicitis, Bowel obstruction, Cholelithiasis, Musculoskeletal pain, Pyelonephritis, Renal failure, Urinary obstruction, Urolithiasis, Other X-Ray, Labs, Meds, VS Vital Signs Date Time Temp Pulse Resp B/P (MAP) Pulse Ox O2 Delivery O2 Flow Rate FiO2 06/17/25 05:08 61 13 133/85 06/17/25 05:02 61 19 133/85 06/17/25 04:32 86 19 137/88 06/17/25 04:14 Room Air* 0 21 06/17/25 04:11 98.6 69 19 137/88 (104) 97 98.6 06/17/25 04:03 97.6 65 20 137/88 97 97.6 Lab Test 06/17/25 04:30 Range/Units White Blood Count Pending Red Blood Count Pending Hemoglobin Pending Hematocrit Pending Mean Corpuscular Volume Pending Mean Corpuscular Hemoglobin Pending Mean Corpuscular Hemoglobin Concent Pending Red Cell Distribution Width Pending Platelet Count Pending Mean Platelet Volume Pending Neutrophils (%) (Auto) Pending Lymphocytes (%) (Auto) Pending Monocytes (%) (Auto) Pending Basophils (%) (Auto) Pending Neutrophils # (Auto) Pending Lymphocytes # (Auto) Pending Monocytes # (Auto) Pending Sodium Level Pending Potassium Level Pending Chloride Level Pending Carbon Dioxide Level Pending Anion Gap Pending Blood Urea Nitrogen Pending Creatinine Pending Glomerular Filtration Rate Calc Pending BUN/Creatinine Ratio Pending Serum Glucose Pending Lactic Acid Level Pending Calcium Level Pending Total Bilirubin Pending Aspartate Amino Transferase (AST) Pending Alanine Aminotransferase (ALT) Pending Alkaline Phosphatase Pending Total Protein Pending Albumin Pending Lipase Pending Current Medications Medications (Trade) Dose Ordered Sig/Irasema Route Start Time Stop Time Status Last Admin Ondansetron HCl (Zofran) 4 mg ONCE ONCE IV 06/17/25 04:15 06/17/25 04:16 DC 06/17/25 04:32 Hydromorphone HCl (Dilaudid Injection) 1 mg ONCE ONCE IV 06/17/25 04:15 06/17/25 04:16 DC 06/17/25 04:32 Sodium Chloride 1,000 ml @ 1,000 mls/hr Q1H ONCE IVB 06/17/25 04:15 06/17/25 05:14 DC 06/17/25 04:32 Hydromorphone HCl (Dilaudid Injection) 1 mg ONCE ONCE IV 06/17/25 05:15 06/17/25 05:16 DC 06/17/25 05:08 Ondansetron HCl (Zofran) 4 mg ONCE ONCE IV 06/17/25 05:15 06/17/25 05:16 DC 06/17/25 05:07 Time of 1ST Reevaluation: 04:18 Reevaluation 1ST: Unchanged Patient Education/Counseling: Diagnosis, Treatment Family Education/Counseling: Diagnosis, Treatment SEPSIS Sepsis Screen Date sepsis recognized/suspect: Jun 17, 2025 Time Sepsis recognized/suspect: 405 Recent Procedure: Yes On Antibiotic Therapy: Yes Respiratory Rate >20: No Heart Rate >90: No Temp<36 C (96.8 F) or >38.3 C: No SBP <90 or MAP <65 mmHG: No New Acute Mental Status Change: No Is the patient on CPAP, BIPAP,: No Physician Orders Complete Blood Count (06/17/25 04:14) Comprehensive Metabolic Panel (06/17/25 04:14) Lipase (06/17/25 04:14) Urinalysis (06/17/25 04:14) Ct Ab Pel Wo Con-No Oral Or Iv (06/17/25 04:14) Blood Culture (06/17/25 04:14) Lactic Acid W/ Reflex Order (06/17/25 04:14) Ceftriaxone Ivpb Rocephin (06/17/25 06:00) Vital Signs Date Time Temp Pulse Resp B/P (MAP) Pulse Ox O2 Delivery O2 Flow Rate FiO2 06/17/25 05:08 61 13 133/85 06/17/25 05:02 61 19 133/85 06/17/25 04:32 86 19 137/88 06/17/25 04:14 Room Air* 0 21 06/17/25 04:11 98.6 69 19 137/88 (104) 97 98.6 06/17/25 04:03 97.6 65 20 137/88 97 97.6 Laboratory Tests Test 06/17/25 04:30 Lactic Acid Level Pending White Blood Count Pending Medications Medications Dose Ordered Sig/Irasema Route Start Time Stop Time Status Last Admin Dose Admin Hydromorphone HCl 1 mg ONCE ONCE IV 06/17/25 04:15 06/17/25 04:16 DC 06/17/25 04:32 Hydromorphone HCl 1 mg ONCE ONCE IV 06/17/25 05:15 06/17/25 05:16 DC 06/17/25 05:08 Ondansetron HCl 4 mg ONCE ONCE IV 06/17/25 04:15 06/17/25 04:16 DC 06/17/25 04:32 Ondansetron HCl 4 mg ONCE ONCE IV 06/17/25 05:15 06/17/25 05:16 DC 06/17/25 05:07 Sodium Chloride 1,000 ml @ 1,000 mls/hr Q1H ONCE IVB 06/17/25 04:15 06/17/25 05:14 DC 06/17/25 04:32 Departure 1 Departure Time of Disposition: 06:30 Impression: Primary Impression: Acute abdominal pain Additional Impressions: Hydroureteronephrosis Bilateral ureteral obstruction Nephrolithiasis Disposition: ADMITTED INPATIENT Admit to: Med Surg Condition: Guarded Discharged With: Self Comments 44-year-old male with a history of kidney stones now presents with severe bilateral flank pain worse on the left side. He does seem to have persistent ureteral stones and hydronephrosis. This is bilateral. Pain is only partly controlled on re-evaluation. Patient will need to be admitted for IV hydration and urology consultation and supportive care. Critical Care Note Critical Care Time?: Yes (35 min-critical care time only) Critical care comment: Total critical care time: Approximately 36 minutes Due to a high probability of clinically significant, life threatening deterioration, the patient required my highest level of preparedness to intervene emergently and I personally spent this critical care time directly and personally managing the patient. This critical care time included obtaining a history; examining the patient; pulse oximetry; ordering and review of studies; arranging urgent treatment with development of a management plan; evaluation of patient's response to treatment; frequent reassessment; and, discussions with other providers. This critical care time was performed to assess and manage the high probability of imminent, life-threatening deterioration that could result in multi-organ failure. It was exclusive of separately billable procedures and treating other patients. Stability Stability form required: MISAEL Del Castillo MD Jun 17, 2025 04:20
[2025-06-17] MEDS: ONDANSETRON HCL 4 MG/2 ML VIAL IV ONE ×2 (04:32→05:07)
[2025-06-17] MEDS: SODIUM CHLORIDE 0.9% 1,000 ML IVB ONE (04:32)
[2025-06-17] MEDS: HYDROmorphone HCL 2 MG/ML VL/or syr IV ONE ×2 (04:32→05:08)
--- NOTE | 2025-06-17 05:35 | DVH ---
Exam: CT CT AB PEL WO CON-NO ORAL OR IV History: Left flank pain. Comparison Study: CT CT AB PEL WITH IV CON ONLY on DOS: 06/08/25 Technique: Multidetector spiral CT of the abdomen and pelvis was performed from lung bases to pubic s ymphysis. Imaging was performed without intravenous contrast. Coronal and sagittal multiplanar reform ats were obtained from the axial data set by the technologist. Radiation Dose : 1. Abdomen/Pelvis: CTDIvol 23.96 mGy, DLP 3.92 mGy*cm. Findings: Evaluation of vasculature and solid organs is limited due to lack of intravenous contrast use. Lung Bases: Right lower lobe atelectasis. There is left upper lobe atelectasis. Visualized portions of the heart and pericardium are unremarkable. Liver: The liver is normal in size. No focal lesions. Gallbladder and Biliary Tree: The gallbladder is unremarkable. No intrahepatic or extrahepatic bilia ry ductal dilatation. Spleen: Unremarkable Pancreas: The pancreas is grossly unremarkable. Adrenal Glands: Unremarkable Kidneys: There is mild right hydroureteronephrosis due to 5 mm obstructive calculus the right uretero vesical junction. There is moderate left hydroureteronephrosis due to 3 distal left ureteral calculi the largest seen at the left ureterovesical junction measuring 3 mm. Additional nonobstructive left renal calculi measuring up to 8 mm. GI tract: The stomach is grossly normal in appearance. No evidence of small bowel wall thickening or abnormal dilatation to suggest bowel obstruction. The colon is unremarkable. The appendix is not visu alized, however no inflammatory changes in the right lower quadrant to suggest acute appendicitis. Peritoneum/mesentery/retroperitoneum. No evidence of free intraperitoneal air. No ascites. No evidenc e of suspicious lymphadenopathy. Abdominal Wall: Unremarkable. Vasculature: The visualized abdominal aorta is normal in size and caliber. Evaluation of abdominal a nd pelvic vessels is limited due to lack of intravenous contrast. Urinary Bladder: Grossly unremarkable for degree of distention. Pelvic Organs: Unremarkable Musculoskeletal: No fracture or dislocation. Sclerotic appearance of the pelvic bones. IMPRESSION: 1. Mild right hydroureteronephrosis due to 5 mm obstructive calculus the right ureterovesical junctio n. 2. Moderate left hydroureteronephrosis due to three distal left ureteral calculi the largest seen at the left ureterovesical junction measuring 3 mm. 3. Additional nonobstructive left renal calculi measuring up to 8 mm.
[2025-06-17 06:02] LABS: Hematocrit 43.0 % (41.0-53.0); Hemoglobin 14.4 g/dL (13.5-17.5); Mean Corpuscular Hemoglobin 29.0 pg (28.0-32.0); Mean Corpuscular Volume 86.4 fL (80.0-100.0); Nucleated Red Blood Cells % 0.0 %
[2025-06-17 06:19] LABS: Albumin 4.2 g/dL (3.2-4.8); Alkaline Phosphatase 91 U/L (46-116); Anion Gap 11 (5-15); BUN/Creatinine Ratio 10.4 (10.0-20.0); Blood Urea Nitrogen 19 mg/dL (9-23); Carbon Dioxide 25 mmol/L (20-31); Chloride 101 mmol/L (98-107); Lipase 52 U/L (12-53); Potassium 3.8 mmol/L (3.5-5.1); Sodium 137 mmol/L (136-145); Total Protein 7.3 g/dL (5.7-8.2)
[2025-06-17 06:20] LABS: Bilirubin, Total 0.5 mg/dL (0.2-1.0)
[2025-06-17 06:30] LABS: Alanine Aminotransferase 40 U/L (7-40); Calcium 10.7 mg/dL (8.7-10.4); Glucose 124 mg/dL (74-106)
--- NOTE | 2025-06-17 07:42 | DVHHP2 ---
History of Present Illness Reason for Visit: Left flank pain History of Present Illness Ab Moreno is a 44-year-old male with past medical history of obesity, cholecystectomy, hypertension, colonoscopy, and right hand surgery who presents to the ED with left flank pain that began 2 days ago. Patient reports that he had lithotripsy 2 days ago but the pain has worsened over the last day. Patient reports that the pain is 9/10 stabbing and constant. He also reports that he has been nauseous and vomiting food contents. Patient reports that there are no triggering or alleviating factors. Patient's Mariangel at the chair side. She is requesting for Dr. Plunkett to see the patient. He reports that he has been living with his at home and is compliant with his medications. Patient denies any recent trauma or injury, recent sick contacts, recent travels, recent ingestion of spoiled food, chest pain, shortness of breath, fever, chills, lightheadedness, weakness, dizziness, nausea, vomiting, diarrhea, or urinary symptoms. Cardiovascular: HTN Past Medical History Obesity Past Surgical History: Cholecystectomy, Other (Right hand surgery, lithotripsy, and colonoscopy) Family History: DM, Hypertension, Other (Mom with diabetes and dad with hypertension.) Smoke: No ALCOHOL: none Drugs: None Lives: with Family Domestic Violence: Neg Review of Systems Gastrointestinal: Nausea, Vomiting, Abdominal Pain Musculoskeletal: other (Left flank pain) Allergies: Coded Allergies: NO KNOWN ALLERGIES (Unverified , 05/21/25) Exam Vital Signs Vital Signs Date Time Temp Pulse Resp B/P (MAP) Pulse Ox O2 Delivery O2 Flow Rate FiO2 06/17/25 06:12 54 12 92 Room Air* 0 21 06/17/25 06:11 97.9 130/83 (99) 97.9 General Appearance: Alert, Oriented X3, Cooperative, No acute distress HEENT: Atraumatic, PERRLA, EOMI Respiratory: Normal air movement Cardiovascular: Normal S1, Normal S2 Abdominal: Soft Extremities: No clubbing, No cyanosis Neuro: Normal speech, Strength at 5/5 X4 ext, Normal tone, Sensation intact Psych/Mental Status: Mental status NL, Mood NL Labs/Xrays Labs Test 06/17/25 04:30 Range/Units White Blood Count 18.1 H 4.4-10.8 10^3/uL Red Blood Count 4.98 4.5-5.90 10^6/uL Hemoglobin 14.4 13.5-17.5 g/dL Hematocrit 43.0 41.0-53.0 % Mean Corpuscular Volume 86.4 80.0-100.0 fL Mean Corpuscular Hemoglobin 29.0 28.0-32.0 pg Mean Corpuscular Hemoglobin Concent 33.5 32.0-36.0 g/dL Red Cell Distribution Width 14.2 11.8-14.3 % Platelet Count 229 140-450 10^3/uL Mean Platelet Volume 8.7 6.9-10.8 fL Neutrophils (%) (Auto) 88.1 H 37.0-80.0 % Lymphocytes (%) (Auto) 5.0 L 10.0-50.0 % Monocytes (%) (Auto) 6.5 0.0-12.0 % Eosinophils (%) (Auto) 0.2 0.0-7.0 % Basophils (%) (Auto) 0.2 0.0-2.0 % Neutrophils # (Auto) 15.9 H 1.6-8.6 10 ^3/uL Lymphocytes # (Auto) 0.9 0.4-5.4 10 ^3/uL Monocytes # (Auto) 1.2 0-1.3 10 ^3/uL Eosinophils # (Auto) 0 0-0.8 10 ^3/uL Basophils # (Auto) 0 0-0.2 10 ^3/uL Nucleated Red Blood Cells 0.0 % Sodium Level 137 136-145 mmol/L Potassium Level 3.8 3.5-5.1 mmol/L Chloride Level 101 98-107 mmol/L Carbon Dioxide Level 25 20-31 mmol/L Anion Gap 11 5-15 Blood Urea Nitrogen 19 9-23 mg/dL Creatinine 1.82 H 0.700-1.30 mg/dL Glomerular Filtration Rate Calc 47 >90 mL/min BUN/Creatinine Ratio 10.4 10.0-20.0 Serum Glucose 124 H 74-106 mg/dL Lactic Acid Level 1.2 0.4-2.0 mmol/L Calcium Level 10.7 H 8.7-10.4 mg/dL Total Bilirubin 0.5 0.2-1.0 mg/dL Aspartate Amino Transferase (AST) 35 13-40 U/L Alanine Aminotransferase (ALT) 40 7-40 U/L Alkaline Phosphatase 91 46-116 U/L Total Protein 7.3 5.7-8.2 g/dL Albumin 4.2 3.2-4.8 g/dL Lipase 52 12-53 U/L Exam: CT CT AB PEL WO CON-NO ORAL OR IV History: Left flank pain. Comparison Study: CT CT AB PEL WITH IV CON ONLY on DOS: 06/08/25 Technique: Multidetector spiral CT of the abdomen and pelvis was performed from lung bases to pubic symphysis. Imaging was performed without intravenous contrast. Coronal and sagittal multiplanar reformats were obtained from the axial data set by the technologist. Radiation Dose : 1. Abdomen/Pelvis: CTDIvol 23.96 mGy, DLP 3.92 mGy*cm. Findings: Evaluation of vasculature and solid organs is limited due to lack of intravenous contrast use. Lung Bases: Right lower lobe atelectasis. There is left upper lobe atelectasis. Visualized portions of the heart and pericardium are unremarkable. Liver: The liver is normal in size. No focal lesions. Gallbladder and Biliary Tree: The gallbladder is unremarkable. No intrahepatic or extrahepatic biliary ductal dilatation. Spleen: Unremarkable Pancreas: The pancreas is grossly unremarkable. Adrenal Glands: Unremarkable Kidneys: There is mild right hydroureteronephrosis due to 5 mm obstructive calculus the right ureterovesical junction. There is moderate left hydroureteronephrosis due to 3 distal left ureteral calculi the largest seen at the left ureterovesical junction measuring 3 mm. Additional nonobstructive left renal calculi measuring up to 8 mm. GI tract: The stomach is grossly normal in appearance. No evidence of small bowel wall thickening or abnormal dilatation to suggest bowel obstruction. The colon is unremarkable. The appendix is not visualized, however no inflammatory changes in the right lower quadrant to suggest acute appendicitis. Peritoneum/mesentery/retroperitoneum. No evidence of free intraperitoneal air. No ascites. No evidence of suspicious lymphadenopathy. Abdominal Wall: Unremarkable. Vasculature: The visualized abdominal aorta is normal in size and caliber. Evaluation of abdominal and pelvic vessels is limited due to lack of intravenous contrast. Urinary Bladder: Grossly unremarkable for degree of distention. Pelvic Organs: Unremarkable Musculoskeletal: No fracture or dislocation. Sclerotic appearance of the pelvic bones. IMPRESSION: 1. Mild right hydroureteronephrosis due to 5 mm obstructive calculus the right ureterovesical junction. 2. Moderate left hydroureteronephrosis due to three distal left ureteral calculi the largest seen at the left ureterovesical junction measuring 3 mm. 3. Additional nonobstructive left renal calculi measuring up to 8 mm. SEPSIS Sepsis Screen Date sepsis recognized/suspect: Jun 17, 2025 Time Sepsis recognized/suspect: 611 Recent Procedure: Yes On Antibiotic Therapy: Yes Respiratory Rate >20: No Heart Rate >90: No Temp<36 C (96.8 F) or >38.3 C: No SBP <90 or MAP <65 mmHG: No New Acute Mental Status Change: No Is the patient on CPAP, BIPAP,: No Physician Orders Urinalysis (06/17/25 04:14) Ct Ab Pel Wo Con-No Oral Or Iv (06/17/25 04:14) Blood Culture (06/17/25 04:14) Vital Signs Date Time Temp Pulse Resp B/P (MAP) Pulse Ox O2 Delivery O2 Flow Rate FiO2 06/17/25 06:12 54 12 92 Room Air* 0 21 06/17/25 06:11 97.9 54 12 130/83 (99) 92 97.9 06/17/25 05:08 61 13 133/85 06/17/25 05:02 61 19 133/85 06/17/25 04:32 86 19 137/88 06/17/25 04:14 Room Air* 0 21 06/17/25 04:11 98.6 69 19 137/88 (104) 97 98.6 06/17/25 04:03 97.6 65 20 137/88 97 97.6 Laboratory Tests Test 06/17/25 04:30 Lactic Acid Level 1.2 mmol/L (0.4-2.0) White Blood Count 18.1 10^3/uL (4.4-10.8) H Medications Medications Dose Ordered Sig/Irasema Route Start Time Stop Time Status Last Admin Dose Admin Ceftriaxone Sodium/Dextrose 50 ml @ 50 mls/hr ONCE ONCE IV 06/17/25 06:00 06/17/25 06:59 DC 06/17/25 06:10 50 MLS/HR Hydromorphone HCl 1 mg ONCE ONCE IV 06/17/25 04:15 06/17/25 04:16 DC 06/17/25 04:32 1 MG Hydromorphone HCl 1 mg ONCE ONCE IV 06/17/25 05:15 06/17/25 05:16 DC 06/17/25 05:08 1 MG Ondansetron HCl 4 mg ONCE ONCE IV 06/17/25 04:15 06/17/25 04:16 DC 06/17/25 04:32 4 MG Ondansetron HCl 4 mg ONCE ONCE IV 06/17/25 05:15 06/17/25 05:16 DC 06/17/25 05:07 4 MG Sodium Chloride 1,000 ml @ 1,000 mls/hr Q1H ONCE IVB 06/17/25 04:15 06/17/25 05:14 DC 06/17/25 04:32 1,000 MLS/HR Assessment/Plan Assessment/Plan Assessment Intractable left flank pain likely due to moderate left hydroureteronephrosis due to three distal left ureteral calculi the largest seen at the left ureterovesical junction measuring 3 mm Mild right hydroureteronephrosis due to 5 mm obstructive calculus the right ureterovesical junction Nonobstructive left renal calculi measuring up to 8 mm NAV likely post renal Leukocytosis likely due to left hydroureternephrosis versus UTI Rule out sepsis Obesity History of cholecystectomy History of hypertension History of colonoscopy History of right hand surgery History of lithotripsy Plan Admit to med surge Antiemetics Pain management CT abdomen and pelvis noted IV antibiotics-Zosyn Ceftriaxone given in ED Blood cultures UA UDS Urine culture Lipase Lactic Flomax NS 1 L given ED Diet IV fluids Home medications reconciled DVT prophylaxis-SCDs PUD prophylaxis-PPIs Discussed plan of care with patient and nurse Urology consult Counseled patient on lifestyle modifications, diet, and exercise [id number] Preventive counseling healthy eating habits, physical activity, and regular checkups Plan discussed with: Patient Date of Service: Jun 17, 2025 Billing Provider: KATHI RUFF Common Visit Codes: [id number] INP/OBS CARE (HIGH) Secondary Visit Codes: [id number] COUNSELING IND KATHI RUFF Jun 17, 2025 07:42
[2025-06-17] MEDS ORDERED: ACETAMINOPHEN 325 MG TAB PO PRN (07:45)
[2025-06-17] MEDS ORDERED: ONDANSETRON HCL 4 MG/2 ML VIAL IV PRN (07:45)
[2025-06-17] MEDS: TAMSULOSIN HYDROCHLORIDE 0.4 MG CAP PO ONE (07:45)
[2025-06-17] MEDS ORDERED: MORPHINE SULFATE INJ 2 MG/ml SYRG IV PRN (07:45)
[2025-06-17 07:49] LABS: Urine Budding Yeast OCCASIONAL /hpf (None Seen); Urine Protein, UAD Negative (Negative)
[2025-06-17 07:57] LABS: Benzodiazephine Screen, Urine Neg (NEGATIVE); Opiate Scree,Urine Pos (NEGATIVE)
[2025-06-17 07:59] LABS: Amphetamine Screen, Urine Neg (NEGATIVE); Barbiturate Scree,Urine Neg (NEGATIVE); Cannabinoid Screen, Urine Neg (NEGATIVE); Cocaine Screen, Urine Neg (NEGATIVE); Phencyclidine Screen, Urine Neg (NEGATIVE)
[2025-06-17] MEDS: HYDROcodone-ACET 5/325MG TAB PO PRN (09:40)
[2025-06-17] MEDS: HYDROmorphone HCL 2 MG/ML VL/or syr IV PRN (11:40)
[2025-06-17] MEDS: SODIUM CHLORIDE 0.9% 1,000 ML IV SCH (12:00)
--- NOTE | 2025-06-17 13:33 | DVHPN2 ---
Reviewed: Care Plan, H&P, Labs, Medications, Previous Orders, Radiology Changes from previous H/P or p: No Changes Gastrointestinal: Nausea, Vomiting, Abdominal Pain Musculoskeletal: other (Left flank pain) Objective Vitals Vital Signs Date Time Temp Pulse Resp B/P (MAP) Pulse Ox O2 Delivery O2 Flow Rate FiO2 06/17/25 12:53 98.0 78 16 125/81 (96) 93 98.0 06/17/25 06:12 Room Air* 0 21 Medications Current Medications Medications Dose Ordered Sig/Irasema Route Start Time Stop Time Status Last Admin Dose Admin Tamsulosin HCl 0.4 mg QPM PO 06/18/25 18:00 Sodium Chloride 1,000 ml @ 120 mls/hr Q8H20M IV 06/17/25 07:45 06/17/25 12:00 120 MLS/HR Acetaminophen/ Hydrocodone Bitart 1 tab Q4HP PRN PO 06/17/25 07:45 06/17/25 09:40 1 TAB Ondansetron HCl 4 mg Q4HP PRN IV 06/17/25 07:45 Acetaminophen 650 mg Q6HP PRN PO 06/17/25 07:45 Piperacillin Sod/ Tazobactam Sod 100 ml @ 25 mls/hr Q8HR IV 06/17/25 14:00 Hydromorphone HCl 1 mg Q4HPRN PRN IV 06/17/25 10:15 06/17/25 11:40 1 MG Laboratory Results Laboratory Tests 06/17/25 04:30 Chemistry Test 06/17/25 04:30 Albumin 4.2 g/dL (3.2-4.8) Calcium Level 10.7 mg/dL (8.7-10.4) H Total Protein 7.3 g/dL (5.7-8.2) Lipid panel Test 06/17/25 04:30 Lipase 52 U/L (12-53) LFT Test 06/17/25 04:30 Alanine Aminotransferase (ALT) 40 U/L (7-40) Alkaline Phosphatase 91 U/L (46-116) Aspartate Amino Transferase (AST) 35 U/L (13-40) Total Bilirubin 0.5 mg/dL (0.2-1.0) Urinalysis Test 06/17/25 04:45 Urine Color Colorless (Yellow) Urine Clarity Clear (Clear) Urine pH 5.5 (5.0-9.0) Urine Specific [place] 1.010 (1.001-1.035) Urine Protein Negative (Negative) Urine Ketones Negative (Negative) Urine Blood 2+ /uL (Negative) H Urine Nitrite Negative (Negative) Urine Bilirubin Negative (Negative) Urine Urobilinogen Normal mg/dL (Negative) Urine Leukocyte Esterase 1+ /uL (Negative) Urine RBC 27 /hpf (0 - 3) Urine Microscopic WBC 8 /HPF (0-3) H Urine Squamous Epithelial Cells Few /hpf (<5) Urine Bacteria None seen /hpf (None Seen) Urine Granular Casts Few /lpf (0) Urine Mucus Few (None Seen) Urine Yeast (Budding) Occasional /hpf (None Urine Glucose Normal mg/dL (Normal) Labs and/or images reviewed: Labs reviewed by me, Image(s) reviewed by me Assessment/Plan Assessment/Plan Intractable left flank pain likely due to moderate left hydroureteronephrosis due to three distal left ureteral calculi the largest seen at the left ureterovesical junction measuring 3 mm: Consult for Urology Dr. Cuadra Mild right hydroureteronephrosis due to 5 mm obstructive calculus the right ureterovesical junction urology consult Nonobstructive left renal calculi measuring up to 8 mm Sepsis secondary to urinary tract infection: Blood cultures urine cultures Zosyn NAV likely post renal Time Spent 45 minutes Advanced care planning time 20 minutes Patient is full code Plan discussed with: Patient My Orders Orders - DORI BECKHAM MD Procedure Category Date Status Time * Urology Consult CONS 06/17/25 Transmitted 13:27 Date of Service: Jun 17, 2025 Billing Provider: DORI BECKHAM MD Common Visit Codes: [id number] INP/OBS CARE(HIGH) Secondary Visit Codes: [id number] CARE PLAN 30 MINUTES DORI BECKHAM MD Jun 17, 2025 13:32
--- NOTE | 2025-06-17 13:58 | DVHINCON2 ---
Date of service: Jun 17, 2025 Referring Physician Shira Beckham Reason for Consultation Bilateral ureteral stones Bilateral hydronephrosis Flank pain History of Present Illness 44-year-old male recently admitted for kidney stone status post lithotripsy 2 days ago at [facility] now complains of recurrent sharp left flank pain with nausea and malaise worse for the last 2 hours. I spoke with patient on POD#1 and he was doing well. But, now he is having severe pains. Chief Complaint: Urinary Reviewed notes: Nurses Notes Allergies: Coded Allergies: NO KNOWN ALLERGIES (Unverified , 05/21/25) Home Meds Active Scripts Tamsulosin Hcl (Flomax) 0.4 Mg Cap, 0.4 MG PO QPM, #14 CAP Prov:LONG PIERSON MD 06/09/25 Hydrocodone-Acetaminophen (Hydrocodone Bitartrate/AC 5-325 mg) 1 Tab Tab, 1 TAB PO QID PRN, #30 TAB Prov:DORI BECKHAM MD 05/26/25 Reported Medications Lisinopril & Hydrochlorothiazi (Lisinopril/Hydrochlorothi) 1 Tab Tab, 1 TAB PO QAM 06/05/25 Information Source: Patient, Spouse Mode of Arrival: Ambulatory Severity: Moderate, Severe Timing: Days Duration: Since onset Past Medical History HTN Past Surgical History Cholecystectomy ESWL Family History: Patient reports no known family medical history. Allergies: Coded Allergies: NO KNOWN ALLERGIES (Unverified , 05/21/25) Home Meds Active Scripts Tamsulosin Hcl (Flomax) 0.4 Mg Cap, 0.4 MG PO QPM, #14 CAP Prov:LONG PIERSON MD 06/09/25 Hydrocodone-Acetaminophen (Hydrocodone Bitartrate/AC 5-325 mg) 1 Tab Tab, 1 TAB PO QID PRN, #30 TAB Prov:DORI BECKHAM MD 05/26/25 Reported Medications Lisinopril & Hydrochlorothiazi (Lisinopril/Hydrochlorothi) 1 Tab Tab, 1 TAB PO QAM 06/05/25 Current Medications Current Medications Medications (Trade) Dose Ordered Sig/Irasema Route PRN Reason Start Time Stop Time Status Last Admin Tamsulosin HCl (Flomax) 0.4 mg QPM PO 06/18/25 18:00 Ceftriaxone Sodium 50 ml @ 100 mls/hr DAILY@09 IV 06/17/25 09:00 06/17/25 09:46 DC Sodium Chloride 1,000 ml @ 120 mls/hr Q8H20M IV 06/17/25 07:45 06/17/25 12:00 Acetaminophen/ Hydrocodone Bitart ([place] 5/325MG Tab) 1 tab Q4HP PRN PO MODERATE PAIN (4-6 PAIN SCALE) 06/17/25 07:45 06/17/25 09:40 Ondansetron HCl (Zofran) 4 mg Q4HP PRN IV NAUSEA / VOMITING 06/17/25 07:45 Acetaminophen (Tylenol Tablet) 650 mg Q6HP PRN PO PAIN SCALE 1-3 OR TEMP>100.4 06/17/25 07:45 Morphine Sulfate 2 mg Q4HPRN PRN IV SEVERE PAIN (7-10 PAIN SCALE) 06/17/25 07:45 06/17/25 10:15 DC Piperacillin Sod/ Tazobactam Sod 100 ml @ 25 mls/hr Q8HR IV 06/17/25 14:00 06/17/25 13:34 DC Hydromorphone HCl (Dilaudid Injection) 1 mg Q4HPRN PRN IV PAIN SCALE 7 THRU 10 06/17/25 10:15 06/17/25 11:40 Ceftriaxone Sodium 50 ml @ 100 mls/hr DAILY@09 IV 06/18/25 09:00 UNV Review of Systems Constitutional: reports: malaise Gastrointestinal: reports: abdominal pain, nausea Genitourinary: reports: flank pain All Other Systems: Reviewed and Negative Vital Signs Vital Signs Date Time Temp Pulse Resp B/P (MAP) Pulse Ox O2 Delivery O2 Flow Rate FiO2 06/17/25 12:53 98.0 78 16 125/81 (96) 93 98.0 06/17/25 06:12 Room Air* 0 21 Physical Exam Appears uncomfortable General Appearance: Moderate Distress, Obese HEENT: Normal ENT Inspection, Pharynx Normal, TMs Normal Neck: Full Range of Motion, Non-Tender, Normal, Normal Inspection Respiratory: Chest Non-Tender, Lungs Clear, No Accessory Muscle Use, No Respiratory Distress, Normal Breath Sounds Cardiovascular: No Edema, No JVD, No Murmur, No Gallop, Normal Peripheral Pulses, Regular Rate/Rhythm Breast Exam: Deferred Gastrointestinal: Tenderness, Other (Left CVA tenderness) Genitalia: Deferred Pelvic: Deferred Rectal: Deferred Extremities: No calf tenderness, Normal capillary refill, Normal inspection, Normal range of motion, Non-tender, No pedal edema Musculoskeletal : Apperance: Normal Neurologic: Alert, hyperbaric tech II-XII nml as Tested, No Motor Deficits, Normal Affect, Normal Mood, No Sensory Deficits Cerebellar Function: Normal Reflexes: Normal Skin: Dry, Normal Color, Warm Lymphatic: No Adenopathy Labs/Diagnostic Data Labs Test 06/17/25 04:45 06/17/25 04:30 Range/Units Urine Color Colorless Yellow Urine Clarity Clear Clear Urine pH 5.5 5.0-9.0 Urine Specific [place] 1.010 1.001-1.035 Urine Protein Negative Negative Urine Ketones Negative Negative Urine Blood 2+ H Negative /uL Urine Nitrite Negative Negative Urine Bilirubin Negative Negative Urine Urobilinogen Normal Negative mg/dL Urine Leukocyte Esterase 1+ Negative /uL Urine RBC 27 0 - 3 /hpf Urine Microscopic WBC 8 H 0-3 /HPF Urine Squamous Epithelial Cells Few <5 /hpf Urine Bacteria None seen None Seen /hpf Urine Granular Casts Few 0 /lpf Urine Mucus Few None Seen Urine Yeast (Budding) Occasional None Seen /hpf Urine Glucose Normal Normal mg/dL Urine Opiates Screen Pos NEGATIVE Urine Fentanyl Screen Neg NEGATIVE Urine Barbiturates Screen Neg NEGATIVE Urine Phencyclidine Screen Neg NEGATIVE Urine Amphetamines Screen Neg NEGATIVE Urine Benzodiazepines Screen Neg NEGATIVE Urine Cocaine Screen Neg NEGATIVE Urine Cannabinoids Screen Neg NEGATIVE White Blood Count 18.1 H 4.4-10.8 10^3/uL Red Blood Count 4.98 4.5-5.90 10^6/uL Hemoglobin 14.4 13.5-17.5 g/dL Hematocrit 43.0 41.0-53.0 % Mean Corpuscular Volume 86.4 80.0-100.0 fL Mean Corpuscular Hemoglobin 29.0 28.0-32.0 pg Mean Corpuscular Hemoglobin Concent 33.5 32.0-36.0 g/dL Red Cell Distribution Width 14.2 11.8-14.3 % Platelet Count 229 140-450 10^3/uL Mean Platelet Volume 8.7 6.9-10.8 fL Neutrophils (%) (Auto) 88.1 H 37.0-80.0 % Lymphocytes (%) (Auto) 5.0 L 10.0-50.0 % Monocytes (%) (Auto) 6.5 0.0-12.0 % Eosinophils (%) (Auto) 0.2 0.0-7.0 % Basophils (%) (Auto) 0.2 0.0-2.0 % Neutrophils # (Auto) 15.9 H 1.6-8.6 10 ^3/uL Lymphocytes # (Auto) 0.9 0.4-5.4 10 ^3/uL Monocytes # (Auto) 1.2 0-1.3 10 ^3/uL Eosinophils # (Auto) 0 0-0.8 10 ^3/uL Basophils # (Auto) 0 0-0.2 10 ^3/uL Nucleated Red Blood Cells 0.0 % Sodium Level 137 136-145 mmol/L Potassium Level 3.8 3.5-5.1 mmol/L Chloride Level 101 98-107 mmol/L Carbon Dioxide Level 25 20-31 mmol/L Anion Gap 11 5-15 Blood Urea Nitrogen 19 9-23 mg/dL Creatinine 1.82 H 0.700-1.30 mg/dL Glomerular Filtration Rate Calc 47 >90 mL/min BUN/Creatinine Ratio 10.4 10.0-20.0 Serum Glucose 124 H 74-106 mg/dL Lactic Acid Level 1.2 0.4-2.0 mmol/L Calcium Level 10.7 H 8.7-10.4 mg/dL Total Bilirubin 0.5 0.2-1.0 mg/dL Aspartate Amino Transferase (AST) 35 13-40 U/L Alanine Aminotransferase (ALT) 40 7-40 U/L Alkaline Phosphatase 91 46-116 U/L Total Protein 7.3 5.7-8.2 g/dL Albumin 4.2 3.2-4.8 g/dL Lipase 52 12-53 U/L PATIENT: VIDHYA DIAZ ACCT: [id number] UNIT: [id number] : 1980 LOC: ER ROOM / BED: / AGE / SEX: 44 / M ADM STATUS: REG ER SERVICE [id number] ORDERING PHYSICIAN: MISAEL TILLMAN MD PROCEDURE(s): ABPL - CT AB PEL WO CON-NO ORAL OR IV REASON: left flank pain ORDER NUMBER(s): [id number], ACCESSION NUMBER(s): [id number] Exam: CT CT AB PEL WO CON-NO ORAL OR IV History: Left flank pain. Comparison Study: CT CT AB PEL WITH IV CON ONLY on DOS: 06/08/25 Technique: Multidetector spiral CT of the abdomen and pelvis was performed from lung bases to pubic symphysis. Imaging was performed without intravenous contrast. Coronal and sagittal multiplanar reformats were obtained from the axial data set by the technologist. Radiation Dose : 1. Abdomen/Pelvis: CTDIvol 23.96 mGy, DLP 3.92 mGy*cm. Findings: Evaluation of vasculature and solid organs is limited due to lack of intravenous contrast use. Lung Bases: Right lower lobe atelectasis. There is left upper lobe atelectasis. Visualized portions of the heart and pericardium are unremarkable. Liver: The liver is normal in size. No focal lesions. Gallbladder and Biliary Tree: The gallbladder is unremarkable. No intrahepatic or extrahepatic biliary ductal dilatation. Spleen: Unremarkable Pancreas: The pancreas is grossly unremarkable. Adrenal Glands: Unremarkable Kidneys: There is mild right hydroureteronephrosis due to 5 mm obstructive calculus the right ureterovesical junction. There is moderate left hydroureteronephrosis due to 3 distal left ureteral calculi the largest seen at the left ureterovesical junction measuring 3 mm. Additional nonobstructive left renal calculi measuring up to 8 mm. GI tract: The stomach is grossly normal in appearance. No evidence of small bowel wall thickening or abnormal dilatation to suggest bowel obstruction. The colon is unremarkable. The appendix is not visualized, however no inflammatory changes in the right lower quadrant to suggest acute appendicitis. Peritoneum/mesentery/retroperitoneum. No evidence of free intraperitoneal air. No ascites. No evidence of suspicious lymphadenopathy. Abdominal Wall: Unremarkable. Vasculature: The visualized abdominal aorta is normal in size and caliber. Evaluation of abdominal and pelvic vessels is limited due to lack of intravenous contrast. Urinary Bladder: Grossly unremarkable for degree of distention. Pelvic Organs: Unremarkable Musculoskeletal: No fracture or dislocation. Sclerotic appearance of the pelvic bones. IMPRESSION: 1. Mild right hydroureteronephrosis due to 5 mm obstructive calculus the right ureterovesical junction. 2. Moderate left hydroureteronephrosis due to three distal left ureteral calculi the largest seen at the left ureterovesical junction measuring 3 mm. 3. Additional nonobstructive left renal calculi measuring up to 8 mm. ATED BY: TOMMY GOTTI MD DICTATED DATE/TIME: 06/17/25531 SIGNED BY: TOMMY GOTTI MD SIGNED DATE/TIME: 06/17/25531 CC: Assessment Right ureteral stone, 5 mm Left ureteral stones Bilateral hydronephrosis Flank pains Plan/Recommendation Cystoscopy with bilateral ureteral stents, possible stones extraction, possible laser lithotripsy Plan discussed with: Patient, Other OSIRIS DARBY MD Jun 17, 2025 13:58
[2025-06-17] MEDS ORDERED: PIPERACILLIN-TAZOB 3.375GM 100 ML IV SCH (14:00)
[2025-06-17] MEDS ORDERED: CIPROFLOXACIN 400MG/200ML 200 ML IV ONE (15:42)
[2025-06-17] MEDS ORDERED: HYDROmorphone HCL 2 MG/ML VL/or syr ONE (16:05)
[2025-06-17] MEDS ORDERED: MIDAZOLAM HCL 2MG/2ML 2ml VIAL (1mg/ml) ONE (16:06)
[2025-06-17] MEDS ORDERED: fentaNYL CITRATE 100 MCG/2 ML VL ONE (16:06)
[2025-06-17] MEDS ORDERED: PROPOFOL 10 MG/ML 20 ML IV ONE (16:12)
[2025-06-17] MEDS ORDERED: SUCCINYLCHOLINE CHLORIDE 20 MG/ML 10ML VIAL IV ONE (16:27)
[2025-06-17] MEDS ORDERED: LIDOCAINE 2% JELLY 11ml (GLYDO) ONE (16:28)
[2025-06-17] MEDS: IOHEXOL 300 MG/ML 100ML BOTTLE IJ ONE (16:54)
[2025-06-17] MEDS ORDERED: ONDANSETRON HCL 4 MG/2 ML VIAL ONE (17:01)
--- NOTE | 2025-06-17 17:48 | DVHNC2 ---
Procedure - OPERATIVE REPORT Pre-op. Diagnosis: Left flank pain left hydronephrosis secondary to distal ureteral calculi 8 mm residual left kidney stone 5 mm residual right distal ureteral calculus status post extracorporeal shockwave lithotripsy of right distal ureteral calculus and left renal calculus Post-op. Diagnosis: Same as pre-op diagnosis Operation: cystoscopy with left ureteral stone extraction cystoscopy with left retrograde pyelogram and left ureteral stent placement cystoscopy with right retrograde pyelogram and right ureteral stent placement Anesthesia: general Indications: Mr. Moreno is a 44-year-old male who presented initially on 05/21/2025 to [facility] with the abdominal pain secondary to acute cholecystitis. During the same hospitalization at [facility], CT scan (05/21/25)reported a 13 mm left nephrolithiasis, nonobstructing. He did undergo laparoscopic cholecystectomy by General surgery team on 05/2025. The left nephrolithiasis was to be treated as outpatient. Patient was then readmitted on 06/05/2025 and was diagnosed with a 4 mm right distal ureteral calculus and mild hydronephrosis. Patient's pain was controlled and we elected to proceed with outpatient lithotripsy of his right distal ureteral calculus of "4 mm" and his left renal calculus which was measured to be 12-13 mm. Patient then was readmitted at [facility] on 06/11/25 for left flank pain. ESWL machine was available on 06/15/25 and treatment was rendered for right dis edwin ureteral stone and left renal stone. Postoperatively he was doing well until today when he experienced nausea/vomitting and left flank pain. CT Scan showed "mild right hydronepsis due to 5 mm obstructive calculus the right UVJ" and moderate left hydronephrosis due to 3 distal ureteral calculi and additional nonobstructive left renal calculi 8 mm. He has been consented to undergo cystoscopy with bilateral ureteral stents placements, possible stones extraction and possible ureteroscopic laser lithotripsy. Details of Procedure: After obtaining consent, patient was taken to the operating room and underwent general anesthesia. He was placed in dorsal lithotomy position with the area of the genitalia prepped and draped in usual sterile manner. Twenty-two Prydeinig rigid cystoscope was used to inspect the urethra in the bladder. There was extensive edema of the right ureteric orifice. On the left side, there was crowding of the ureteral calculi at the ureteric orifice. The stone was grasped and removed using the grasping forceps. Open-ended catheter was used to perform a left retrograde pyelogram. The ureter was narrowed distally and will require dilation in order to accommodate a ureteroscope. Due to multiple distal ureteral calculi elected not to proceed with ureteral dilatation in order to avoid ureteral injury. Guidewire was then placed an open-ended catheter was removed. A five Prydeinig by 28 cm polaris loop ureteral stent was properly positioned. An 8 mm filling defect in the upper pole calyx was also identified consistent with residual left renal calculus post lithotripsy. Attention was turned to the right ureteric orifice which appeared to be very edematous. Open-ended catheter was placed and retrograde pyelogram was performed demonstrating distal ureteral calculi fragments. Attempt to use a stone basket was unsuccessful due to severe edema. I was able to get a ureteral guidewire accessed into the renal pelvis and open-ended catheter was removed. A five Prydeinig by 26 cm polaris loop ureteral stent was properly positioned with some difficulty in accessing. Some of the ureteral stone fragments were collected and sent to pathology for evaluation. Bladder was decompressed and cystoscope removed in entirety. Patient was awakened and taken to recovery room in stable condition Specimens: ureteral stones Complications: none Findings: distal ureteral edema on the right left ureteral orifice with multiple stone fragments removed bilateral ureteral stents placed Notes: patient will require 2nd lithotripsy of the left kidney stone and the right distal ureteral calculi and subsequent stent removal when he is stone free OSIRIS DARBY MD Jun 17, 2025 17:48
--- NOTE | 2025-06-17 18:15 | DVH ---
Date: 06/17/2025 05:41 PM Examination: XY KUB ABDOMEN SINGLE VIEW History: stents placement Comparison: XY KUB ABDOMEN SINGLE VIEW on DOS: 06/08/25, XY KUB ABDOMEN SINGLE VIEW on DOS: 06/07/25 TECHNIQUE: Frontal views of the abdomen was obtained. FINDINGS: Bowel gas pattern is unremarkable. Bilateral ureteral stents in place. The lung bases are unremarkable. No acute osseous abnormality identified. IMPRESSION: 1. Nonobstructive bowel gas pattern. 2. Bilateral ureteral stents in place.
[2025-06-18 01:00] VITALS: BP 117/72; PULSE 65; RESP 18; TEMP 97.9; O2SAT 94
[2025-06-18 05:00] VITALS: BP 117/66; PULSE 70; RESP 18; TEMP 97.8; O2SAT 94
[2025-06-18 06:27] LABS: Hematocrit 42.7 % (41.0-53.0); Hemoglobin 14.5 g/dL (13.5-17.5); Mean Corpuscular Hemoglobin 29.4 pg (28.0-32.0); Mean Corpuscular Volume 86.5 fL (80.0-100.0); Nucleated Red Blood Cells % 0.0 %
[2025-06-18 06:37] LABS: Alanine Aminotransferase 27 U/L (7-40); Albumin 3.8 g/dL (3.2-4.8); Alkaline Phosphatase 78 U/L (46-116); Anion Gap 11 (5-15); BUN/Creatinine Ratio 10.1 (10.0-20.0); Bilirubin, Total 0.5 mg/dL (0.2-1.0); Blood Urea Nitrogen 16 mg/dL (9-23); Carbon Dioxide 24 mmol/L (20-31); Chloride 105 mmol/L (98-107); Potassium 4.1 mmol/L (3.5-5.1); Sodium 140 mmol/L (136-145); Total Protein 6.6 g/dL (5.7-8.2)
[2025-06-18 06:38] LABS: Calcium 10.4 mg/dL (8.7-10.4); Glucose 127 mg/dL (74-106)
[2025-06-18 08:00] VITALS: PULSE 82; RESP 19; O2SAT 98
[2025-06-18 08:38] VITALS: BP 135/83; PULSE 69; RESP 20; TEMP 97.9; O2SAT 97
--- NOTE | 2025-06-18 11:11 | DVH ---
C-ARM FLUOROSCOPY: PROCEDURE: Bilateral retrograde with stent placement FLUOROSCOPY TIME: 63.7 seconds Air Kerma: 33.96 mgy FINDINGS: Spot intraoperative C arm radiographs demonstrating retrograde with stent placement. IMPRESSION: Please refer to surgical report for detailed findings.
--- NOTE | 2025-06-18 11:57 | DVHPN2 ---
Reviewed: Care Plan, H&P, Labs, Medications, Previous Orders, Radiology Changes from previous H/P or p: No Changes Gastrointestinal: Nausea, Vomiting, Abdominal Pain Musculoskeletal: other Objective Vitals Vital Signs Date Time Temp Pulse Resp B/P (MAP) Pulse Ox O2 Delivery O2 Flow Rate FiO2 06/18/25 08:38 97.9 69 20 135/83 (100) 97 97.9 06/17/25 20:00 Nasal Cannula* 2 28 Intake/Output Intake and Output 06/18/25 07:00 Intake Total 800 ml Output Total 1100 ml Balance -300 ml Intake Oral 800 ml Output Urine Total 1100 ml Medications Current Medications Medications Dose Ordered Sig/Irasema Route Start Time Stop Time Status Last Admin Dose Admin Tamsulosin HCl 0.4 mg QPM PO 06/18/25 18:00 Sodium Chloride 1,000 ml @ 120 mls/hr Q8H20M IV 06/17/25 07:45 06/17/25 12:00 120 MLS/HR Acetaminophen/ Hydrocodone Bitart 1 tab Q4HP PRN PO 06/17/25 07:45 06/18/25 00:08 1 TAB Ondansetron HCl 4 mg Q4HP PRN IV 06/17/25 07:45 Acetaminophen 650 mg Q6HP PRN PO 06/17/25 07:45 Hydromorphone HCl 1 mg Q4HPRN PRN IV 06/17/25 10:15 06/17/25 11:40 1 MG Ceftriaxone Sodium 50 ml @ 100 mls/hr DAILY@09 IV 06/18/25 09:00 06/18/25 09:00 100 MLS/HR Laboratory Results Laboratory Tests 06/18/25 04:51 Chemistry Test 06/18/25 04:51 Albumin 3.8 g/dL (3.2-4.8) Calcium Level 10.4 mg/dL (8.7-10.4) Total Protein 6.6 g/dL (5.7-8.2) LFT Test 06/18/25 04:51 Alanine Aminotransferase (ALT) 27 U/L (7-40) Alkaline Phosphatase 78 U/L (46-116) Aspartate Amino Transferase (AST) 19 U/L (13-40) Total Bilirubin 0.5 mg/dL (0.2-1.0) Urinalysis Test 06/17/25 04:45 Urine Color Colorless (Yellow) Urine Clarity Clear (Clear) Urine pH 5.5 (5.0-9.0) Urine Specific [place] 1.010 (1.001-1.035) Urine Protein Negative (Negative) Urine Ketones Negative (Negative) Urine Blood 2+ /uL (Negative) H Urine Nitrite Negative (Negative) Urine Bilirubin Negative (Negative) Urine Urobilinogen Normal mg/dL (Negative) Urine Leukocyte Esterase 1+ /uL (Negative) Urine RBC 27 /hpf (0 - 3) Urine Microscopic WBC 8 /HPF (0-3) H Urine Squamous Epithelial Cells Few /hpf (<5) Urine Bacteria None seen /hpf (None Seen) Urine Granular Casts Few /lpf (0) Urine Mucus Few (None Seen) Urine Yeast (Budding) Occasional /hpf (None Urine Glucose Normal mg/dL (Normal) Microbiology Microbiology Date/Time Source Procedure Growth Status 06/17/25 04:50 Blood Blood Culture - Preliminary NO GROWTH AFTER 24 HOURS OF INCUBATION. Resulted 06/17/25 04:45 Voided Urine Urine Culture - Preliminary Resulted Labs and/or images reviewed: Labs reviewed by me, Image(s) reviewed by me Assessment/Plan Assessment/Plan Intractable left flank pain likely due to moderate left hydroureteronephrosis due to three distal left ureteral calculi the largest seen at the left ureterovesical junction measuring 3 mm: Consult for Urology Dr. Cuadra Mild right hydroureteronephrosis due to 5 mm obstructive calculus the right ureterovesical junction urology consult Status post cystoscopy with left ureteral stone extraction left ureteral stent placement and right ureteral stent placement by Urology Dr. Cuadra on 06/17/2025 Sepsis secondary to urinary tract infection: Blood cultures urine cultures Zosyn NAV likely post renal Time Spent 45 minutes Advanced care planning time 20 minutes Patient is full code Blood cultures negative Urine cultures negative Cleared by Urology Dr. Cuadra for discharge Plan discussed with: Patient My Orders Orders - DORI BECKHAM MD Procedure Category Date Status Time * Urology Consult CONS 06/17/25 Transmitted 13:27 Ceftriaxone 1gm/50ml PHA 06/18/25 In Process (Rocephin) 09:00 Kub Abdomen Single XY 06/17/25 Resulted View 09:57 C Arm Fluoroscopy Up XY 06/17/25 Resulted To 60min 09:57 Date of Service: Jun 18, 2025 Billing Provider: DORI BECKHAM MD Common Visit Codes: [id number] INP/OBS CARE(HIGH) DORI BECKHAM MD Jun 18, 2025 11:57
[2025-06-18 12:53] VITALS: BP 141/84; PULSE 78; RESP 18; TEMP 98.1; O2SAT 93
--- NOTE | 2025-06-18 12:59 | DVHDS2 ---
Discharge Summary Date of Admission Jun 17, 2025 at 07:33 Date of Discharge: Jun 18, 2025 Admitting Diagnosis Acute left flank pain Wounds: See below Labs/Diagnostic Data: Laboratory Results Test 06/18/25 04:51 06/17/25 04:45 06/17/25 04:30 White Blood Count 13.3 10^3/uL (4.4-10.8) Red Blood Count 4.94 10^6/uL (4.5-5.90) Hemoglobin 14.5 g/dL (13.5-17.5) Hematocrit 42.7 % (41.0-53.0) Mean Corpuscular Volume 86.5 fL (80.0-100.0) Mean Corpuscular Hemoglobin 29.4 pg (28.0-32.0) Mean Corpuscular Hemoglobin Concent 34.0 g/dL (32.0-36.0) Red Cell Distribution Width 14.2 % (11.8-14.3) Platelet Count 226 10^3/uL (140-450) Mean Platelet Volume 8.7 fL (6.9-10.8) Neutrophils (%) (Auto) 90.3 % (37.0-80.0) Lymphocytes (%) (Auto) 4.8 % (10.0-50.0) Monocytes (%) (Auto) 4.8 % (0.0-12.0) Eosinophils (%) (Auto) 0.0 % (0.0-7.0) Basophils (%) (Auto) 0.1 % (0.0-2.0) Neutrophils # (Auto) 12.0 10 ^3/uL (1.6-8.6) Lymphocytes # (Auto) 0.6 10 ^3/uL (0.4-5.4) Monocytes # (Auto) 0.6 10 ^3/uL (0-1.3) Eosinophils # (Auto) 0 10 ^3/uL (0-0.8) Basophils # (Auto) 0 10 ^3/uL (0-0.2) Nucleated Red Blood Cells 0.0 % Sodium Level 140 mmol/L (136-145) Potassium Level 4.1 mmol/L (3.5-5.1) Chloride Level 105 mmol/L (98-107) Carbon Dioxide Level 24 mmol/L (20-31) Anion Gap 11 (5-15) Blood Urea Nitrogen 16 mg/dL (9-23) Creatinine 1.58 mg/dL (0.700-1.30) Glomerular Filtration Rate Calc 55 mL/min (>90) BUN/Creatinine Ratio 10.1 (10.0-20.0) Serum Glucose 127 mg/dL (74-106) Calcium Level 10.4 mg/dL (8.7-10.4) Total Bilirubin 0.5 mg/dL (0.2-1.0) Aspartate Amino Transferase (AST) 19 U/L (13-40) Alanine Aminotransferase (ALT) 27 U/L (7-40) Alkaline Phosphatase 78 U/L (46-116) Total Protein 6.6 g/dL (5.7-8.2) Albumin 3.8 g/dL (3.2-4.8) Urine Color Colorless (Yellow) Urine Clarity Clear (Clear) Urine pH 5.5 (5.0-9.0) Urine Specific [place] 1.010 (1.001-1.035) Urine Protein Negative (Negative) Urine Ketones Negative (Negative) Urine Blood 2+ /uL (Negative) Urine Nitrite Negative (Negative) Urine Bilirubin Negative (Negative) Urine Urobilinogen Normal mg/dL (Negative) Urine Leukocyte Esterase 1+ /uL (Negative) Urine RBC 27 /hpf (0 - 3) Urine Microscopic WBC 8 /HPF (0-3) Urine Squamous Epithelial Cells Few /hpf (<5) Urine Bacteria None seen /hpf (None Seen) Urine Granular Casts Few /lpf (0) Urine Mucus Few (None Seen) Urine Yeast (Budding) Occasional /hpf (None Urine Glucose Normal mg/dL (Normal) Urine Opiates Screen Pos (NEGATIVE) Urine Fentanyl Screen Neg (NEGATIVE) Urine Barbiturates Screen Neg (NEGATIVE) Urine Phencyclidine Screen Neg (NEGATIVE) Urine Amphetamines Screen Neg (NEGATIVE) Urine Benzodiazepines Screen Neg (NEGATIVE) Urine Cocaine Screen Neg (NEGATIVE) Urine Cannabinoids Screen Neg (NEGATIVE) Lactic Acid Level 1.2 mmol/L (0.4-2.0) Lipase 52 U/L (12-53) Other Laboratory Tests 06/18/25 04:51 Brief Hx & Hospital Course: 44-year-old male came in for left flank pain found to have bilateral ureteral stones with hydronephrosis underwent cystoscopy with bilateral ureteral stent placement by Dr. Darby scheduled for ESWL in two weeks outpatient cleared for discharge by Dr. Slade mild UTI treated with the Rocephin. Urine cultures negative patient feels better being discharged home. He says he has enough pain medications at home. Consults/Reason for consult Urology Operations or Procedures Cystoscopy bilateral ureteral stent placement Condition at Discharge: Fair Final Diagnosis/Problems List Intractable left flank pain likely due to moderate left hydroureteronephrosis due to three distal left ureteral calculi the largest seen at the left ureterovesical junction measuring 3 mm: Consult for Urology Dr. Darby Mild right hydroureteronephrosis due to 5 mm obstructive calculus the right ureterovesical junction urology consult Status post cystoscopy with left ureteral stone extraction left ureteral stent placement and right ureteral stent placement by Urology Dr. Darby on 06/17/2025 Sepsis secondary to urinary tract infection: Blood cultures urine cultures Zosyn NAV likely post renal Discharge Disposition: Home Discharge Instruct/Medications Diet: Regular Activity: Light activity Follow Up/Referral: FOLLOW UP WITH THE UROLOGY DR. DARBY IN TWO WEEKS FOR LITHOTRIPSY Medications: NONE PATIENT SAYS HE HAS PAIN MEDICATIONS AT HOME Scheduled Lisinopril & Hydrochlorothiazi (Lisinopril/Hydrochlorothi), 1 TAB PO QAM, (Reported) Tamsulosin Hcl (Flomax), 0.4 MG PO QPM Scheduled PRN Hydrocodone-Acetaminophen (Hydrocodone Bitartrate/AC 5-325 mg), 1 TAB PO QID PRN 39 (TIME TAKEN FOR DISCHARGE SUMMARY 39 MINUTES) Discharge Statement: "Patient was advised to return to the ER or call 911 if any headaches, dizziness, shortness of breath, chest pain, abdominal pain, bleeding, fevers, or worsening of medical condition. Patient was counseled about treatment plan, medications, possible side effects, patientverbalized understanding. All questions were answered to the best of my ability. This discharge took greater then 30 minutes in planning, reviewing documentation, counseling the patient, and discussing with other team members." ASSESSMENT ASSESSMENT Hospital Course Uneventful Assessment Intractable left flank pain likely due to moderate left hydroureteronephrosis due to three distal left ureteral calculi the largest seen at the left ureterovesical junction measuring 3 mm: Consult for Urology Dr. Darby Mild right hydroureteronephrosis due to 5 mm obstructive calculus the right ureterovesical junction urology consult Status post cystoscopy with left ureteral stone extraction left ureteral stent placement and right ureteral stent placement by Urology Dr. Darby on 06/17/2025 Sepsis secondary to urinary tract infection: Blood cultures urine cultures Zosyn NAV likely post renal Date of Service: Jun 18, 2025 Billing Provider: DORI BECKHAM MD Common Visit Codes: 92324-OZK/OBS DISCH DAY >30min DORI BECKHAM MD Jun 18, 2025 12:59
[2025-06-18 15:13] VITALS: BP 121/84; PULSE 78; RESP 18; TEMP 98.1; O2SAT 93
[2025-06-18] MEDS ORDERED: TAMSULOSIN HYDROCHLORIDE 0.4 MG CAP PO SCH (18:00)
== END 2025-06-18 15:45 | disposition home or self-care (01) | DRG 854 ==
LOC: ER 04:01 → OVERFLOW 07:33 → WEST WING 18:16
PROVIDERS: ADMIT Family Medicine; ATTEND Family Medicine
PROC: 0TC78ZZ Extirpation of Matter from Left Ureter, Via Natural or Artificial Opening Endoscopic (ICD-10-PCS; 2025-06-17)
PROC: 0TC68ZZ Extirpation of Matter from Right Ureter, Via Natural or Artificial Opening Endoscopic (ICD-10-PCS; 2025-06-17)
PROC: BT141ZZ Fluoroscopy of Kidneys, Ureters and Bladder using Low Osmolar Contrast (ICD-10-PCS; 2025-06-17)
PROC: 0T788DZ Dilation of Bilateral Ureters with Intraluminal Device, Via Natural or Artificial Opening Endoscopic (ICD-10-PCS; principal; 2025-06-17 16:15)
DX: A41.9 Sepsis, unspecified organism (principal); N13.6 Pyonephrosis; N17.9 Acute kidney failure, unspecified; N20.2 Calculus of kidney with calculus of ureter; Z68.1 Body mass index [BMI] 19.9 or less, adult; E66.9 Obesity, unspecified; Z90.49 Acquired absence of other specified parts of digestive tract; I10 Essential (primary) hypertension; Z87.442 Personal history of urinary calculi; Z83.3 Family history of diabetes mellitus; Z82.49 Family history of ischemic heart disease and other diseases of the circulatory system; Z79.899 Other long term (current) drug therapy
CPT/HCPCS: 36415; 74018; 74176; 76000; 80053; 80307; 81001; 82360; 83605; 83690; 85025; 87040; 87081; 87086; 87088; 96365; 99291; A4344; G0378; J0330; J1100; J2250; J2405; J2704

== ENCOUNTER 2025-08-12 03:18 | Inpatient (IN) | payer OTHER ==
[~2025-08-12] VITALS: Ht 180.3 cm; Wt 135.1 kg
--- NOTE | 2025-08-12 04:03 | ED.PDOC ---
General HPI Comments HPI: Poor Historian. 45-year-old male presents to emergency depart for evaluation of worsening bilateral lower abdominal pain. Patient states he has renal stents bilaterally that were placed for kidney stones and were supposed to be removed awhile ago. He went to see his urologist this past Sunday and was told that we will move the stents this week. Patient was supposed to get a phone call but they never called him. He called the office of the urologist again Dr. Connor. They told him they are both until the end of the year and if urine pain go to the ER. Patient's pain continues to worsen and he wants to stents out. Patient denies any other urinary symptoms. Denies any nausea or vomiting or diarrhea or fever. Past Medical History: Kidney stones Past Surgical History: Renal stents placement REVIEW OF SYSTEMS: CONSTITUTIONAL: Denies acute: fever, diaphoresis, chills, generalized weakness. HEAD: Denies acute: headache, photophobia Eyes: Denies acute: Double vision, vision loss, eye pain, eye discharge. EARS: Denies acute: tinnitus, hearing loss, ear discharge, ear pain, THROAT: Denies acute: sore throat, swelling, difficulty swallowing , pain with swallowing, change in voice. NECK: Denies acute: neck pain, neck swelling, stiff neck. HEART: Denies acute : chest pain, palpitations, LUNGS: Denies acute: SOB, wheezing, cough, hemoptysis ABDOMEN: Denies acute: Nausea, Vomiting, diarrhea, melena , hematemesis, hematochezia SKIN: Denies acute: rash, redness, lesions, itchiness. EXTREMITIES: Denies acute: calf pain, numbness, tingling, weakness, denies pain in extremity. Denies acute: Low back pain. Neuro: Denies acute: focal neurological deficit, motor or sensory focal neurological deficit, tremors, seizure like activity, confusion, dizziness, change in mental status, loss of bowel or bladder function, cauda equina like symptoms. : Denies acute: dysuria, hematuria, flank pain, increase in urinary frequency. PSYCH: Denies acute: hallucination, suicidal ideation, homicidal ideation. PHYSICAL EXAM: General: ---moderate-----acute distress, awake and alert. Head: normocephalic, atraumatic. No raccoon's eyes, no zafar sign. Neck: supple, trachea is midline, no swelling. Throat: Normal phonation. Eyes:, no erythema, no purulent discharge, no proptosis, no icterus. Heart: regular rate, regular rhythm, no significant murmur appreciated. Lungs: no apparent respiratory distress, Able to speak in full sentences. No wheezing, no rhonchi, no crackles. No stridors Clear to auscultation bilaterally. Abdomen: Bilateral groin and bilateral lower quadrant tender to palpation, non distended, soft, no guarding, no rebound, + bowel sounds. Obese Neuro: Awake, Alert, oriented to name, self, situation, follows commands GCS=15. Speech is normal. Skin: no petechia, no purpura, no cyanosis, non-pale, not jaundice. Lower extremities: --no - Pitting edema no deformity, no focal swelling, no calf TTP. Makes eye contact. moves all four extremities. Face: no apparent facial droop. No CVA tenderness to percussion bilaterally. Ambulating in the ED independently. ED COURSE: DISCLAIMER: This medical document was created using an electronic medical record system with voice recognition software and computerized dictation system. Although this document has been carefully reviewed, there might still be some phonetic and typographical errors. Occasional wrong-word or "sound-alike" substitutions may have occurred due to the inherent limitations of voice recognition software. These areas are purely typographical due to imperfections of the software programs and do not reflect any compromise in the patient's medical care. Please read the chart carefully and recognize, using context, where these substitutions have occurred. Chief Complaint: Urinary Time Seen by MD: 03:55 Reviewed notes: Allergies Allergies: Coded Allergies: NO KNOWN ALLERGIES (Unverified , 05/21/25) Home Meds Active Scripts Tamsulosin Hcl (Flomax) 0.4 Mg Cap, 0.4 MG PO QPM, #14 CAP Prov:LONG PIERSON MD 06/09/25 Hydrocodone-Acetaminophen (Hydrocodone Bitartrate/AC 5-325 mg) 1 Tab Tab, 1 TAB PO QID PRN, #30 TAB Prov:DORI BECKHAM MD 05/26/25 Reported Medications Lisinopril & Hydrochlorothiazi (Lisinopril/Hydrochlorothi) 1 Tab Tab, 1 TAB PO QAM 06/05/25 Information Source: Patient Mode of Arrival: Ambulatory Past Medical History PAST MEDICAL HISTORY: HTN Surgical History: Cholecystectomy Family History Family History: Reviewed,noncontributory to illness Social History Smoker: Non-Smoker Alcohol: Denies ETOH Use Drugs: Denies Drug Use Lives In: Home Was a procedure done? Was a procedure done?: No Differential Diagnosis Kidney stone (Female): N/A Kidney stone (Male): Pyelonephritis, Renal failure, Strain, Urinary obstruction, Urolithiasis, Renal infarction, Urinary tract infection Urinary Problem (Male): Bladder Outlet, Bladder Obstruction, Epididymitis, Prostatitis, Plelonephritis, Post op Complications, Renal Failure, Urethritis, Urinary Retention, Urolithiasis, UTI X-Ray, Labs, Meds, VS Vital Signs Date Time Temp Pulse Resp B/P (MAP) Pulse Ox O2 Delivery O2 Flow Rate FiO2 08/12/25 06:48 97.7 33 17 85/43 (57) 97 97.7 08/12/25 06:27 145/92 08/12/25 06:25 98.1 62 20 145/92 (109) 97 98.1 08/12/25 05:26 74 20 98 Room Air* 0 21 08/12/25 03:22 97.5 68 14 125/90 96 97.5 Lab Test 08/12/25 04:28 08/12/25 04:06 Range/Units Urine Color Colorless Yellow Urine Clarity Turbid H Clear Urine pH 7.0 5.0-9.0 Urine Specific [place] 1.011 1.001-1.035 Urine Protein 1+ H Negative Urine Ketones Negative Negative Urine Blood 3+ H Negative /uL Urine Nitrite Negative Negative Urine Bilirubin Negative Negative Urine Urobilinogen Normal Negative mg/dL Urine Leukocyte Esterase 3+ Negative /uL Urine RBC 757 0 - 3 /hpf Urine Microscopic WBC 29 H 0-3 /HPF Urine Squamous Epithelial Cells Few <5 /hpf Urine Bacteria None seen None Seen /hpf Urine Mucus Few None Seen Urine Glucose Normal Normal mg/dL White Blood Count 8.9 4.4-10.8 10^3/uL Red Blood Count 4.56 4.5-5.90 10^6/uL Hemoglobin 13.3 L 13.5-17.5 g/dL Hematocrit 39.2 L 41.0-53.0 % Mean Corpuscular Volume 86.0 80.0-100.0 fL Mean Corpuscular Hemoglobin 29.1 28.0-32.0 pg Mean Corpuscular Hemoglobin Concent 33.8 32.0-36.0 g/dL Red Cell Distribution Width 14.3 11.8-14.3 % Platelet Count 241 140-450 10^3/uL Mean Platelet Volume 8.2 6.9-10.8 fL Neutrophils (%) (Auto) 66.4 37.0-80.0 % Lymphocytes (%) (Auto) 23.1 10.0-50.0 % Monocytes (%) (Auto) 5.5 0.0-12.0 % Eosinophils (%) (Auto) 4.0 0.0-7.0 % Basophils (%) (Auto) 1.0 0.0-2.0 % Neutrophils # (Auto) 5.9 1.6-8.6 10 ^3/uL Lymphocytes # (Auto) 2.1 0.4-5.4 10 ^3/uL Monocytes # (Auto) 0.5 0-1.3 10 ^3/uL Eosinophils # (Auto) 0.4 0-0.8 10 ^3/uL Basophils # (Auto) 0.1 0-0.2 10 ^3/uL Nucleated Red Blood Cells 0.0 % Sodium Level 144 136-145 mmol/L Potassium Level 4.0 3.5-5.1 mmol/L Chloride Level 108 H 98-107 mmol/L Carbon Dioxide Level 27 20-31 mmol/L Anion Gap 9 5-15 Blood Urea Nitrogen 15 9-23 mg/dL Creatinine 0.97 0.700-1.30 mg/dL Glomerular Filtration Rate Calc 99 >90 mL/min BUN/Creatinine Ratio 15.5 10.0-20.0 Serum Glucose 97 74-106 mg/dL Lactic Acid Level 0.6 0.4-2.0 mmol/L Calcium Level 10.0 8.7-10.4 mg/dL Total Bilirubin 0.5 0.2-1.0 mg/dL Aspartate Amino Transferase (AST) 23 13-40 U/L Alanine Aminotransferase (ALT) 15 7-40 U/L Alkaline Phosphatase 128 H 46-116 U/L Total Protein 6.3 5.7-8.2 g/dL Albumin 3.8 3.2-4.8 g/dL Current Medications Medications (Trade) Dose Ordered Sig/Irasema Route Start Time Stop Time Status Last Admin Sodium Chloride 1,000 ml @ 1,000 mls/hr Q1H ONCE IV 08/12/25 03:30 08/12/25 04:29 DC 08/12/25 05:08 Ceftriaxone Sodium 50 ml @ 100 mls/hr ONCE ONCE IV 08/12/25 05:45 08/12/25 06:14 DC 08/12/25 06:25 Fentanyl Citrate 100 mcg ONCE ONCE IV 08/12/25 05:45 08/12/25 05:46 DC 08/12/25 06:27 [place] [id number] Ph: [phone] DIAGNOSTIC IMAGING Diagnostic Imaging Report : [id number] Signed PATIENT: VIDHYA DIAZ ACCT: [id number] UNIT: [id number] : 1980 LOC: ER ROOM / BED: / AGE / SEX: 45 / M ADM STATUS: REG ER SERVICE [id number] ORDERING PHYSICIAN: MIRIAM SILVA DO PROCEDURE(s): ABPL - CT AB PEL WO CON-NO ORAL OR IV REASON: urinary symptoms, stent ORDER NUMBER(s): [id number], ACCESSION NUMBER(s): [id number] EXAM: CT CT AB PEL WO CON-NO ORAL OR IV History: Urinary symptoms, stent Comparison Study: CT CT AB PEL WO CON-NO ORAL OR IV on DOS: 06/17/25. TECHNIQUE: Multidetector spiral CT of the abdomen and pelvis was performed from lung bases to pubic symphysis. Imaging was performed without intravenous contrast. Coronal and sagittal multiplanar reformats were obtained from the axial data set by the technologist. Radiation Dose : 1. Abdomen/Pelvis: CTDIvol 25.72 mGy, DLP 1651.5 mGy*cm. FINDINGS: Evaluation of vasculature and solid organs is limited due to lack of intravenous contrast use. Lung Bases: Lung bases are clear. Visualized portions of the heart and pericardium are unremarkable. Liver: The liver is normal in size. No focal lesions. Gallbladder and Biliary Tree: The gallbladder is surgically absent. No intrahepatic or extrahepatic biliary ductal dilatation. Spleen: Unremarkable Pancreas: The pancreas is grossly unremarkable. Adrenal Glands: Unremarkable Kidneys: There are bilateral nephroureteral stents with the tip coiled in the Bilateral renal pelves and The urinary bladder. Mild bilateral hydroureteronephrosis. Bilateral perinephric fat stranding. Punctate bilateral renal calculi. GI tract: The stomach is grossly normal in appearance. No evidence of small bowel wall thickening or abnormal dilatation to suggest bowel obstruction. The colon is unremarkable. The appendix is visualized and normal in caliber. Peritoneum/mesentery/retroperitoneum. No evidence of free intraperitoneal air. No ascites. No evidence of suspicious lymphadenopathy. Abdominal Wall: Unremarkable. Vasculature: The visualized abdominal aorta is normal in size and caliber. Evaluation of abdominal and pelvic vessels is limited due to lack of intravenous contrast. Urinary Bladder: Urinary bladder is underdistended and contains the coiled stents. There is moderate bladder wall thickening and fat stranding. Pelvic Organs: Unremarkable Musculoskeletal: No fracture or dislocation. Sclerotic appearance of the sacrum, iliac bones and pubic bones. IMPRESSION: 1. Bilateral nephroureteral stents with the tips coiled in the bilateral renal pelves and the urinary bladder. 2. Mild bilateral hydroureteronephrosis with Fat stranding. Punctate bilateral renal calculi. 3. Cholecystectomy. 4. Sclerosis in the pelvic bones of uncertain etiology. ATED BY: TOMMY GOTTI MD DICTATED DATE/TIME: 08/12/25525 SIGNED BY: TOMMY GOTTI MD SIGNED DATE/TIME: 08/12/25525 CC: Time of 1ST Reevaluation: 03:55 Reevaluation 1ST: Unchanged Time of 2ND Reevaluation: 06:52 (I was just informed that the patient after receiving fentanyl his blood pressure dropped. Patient is mentating well. Patient will be given an additional L of normal saline bolus. Patient is a waiting admission the medicine team.) Patient Education/Counseling: Diagnosis, Treatment Family Education/Counseling: Diagnosis, Treatment Comments MDM: patient presented with the above HPI.---abdominal pain and renal stents complaints---workup was initiated. patient was found with the above mentioned diagnosis. the following medications were ordered: please refer to order lists of meds and tests obtained by myself Dr. Silva. Patient ED course and VS have been stabilized. Patient has been reassessed in the ED and remained in a stable condition. Pertinent incidental findings were discussed with the patient and/or family. Patient/family voices understanding and is agreeable with plan. Patient has been observed in the ED adequate length of time to insure improvement/stability. Escalation of care considered: Consideration of escalation to observation or admission Patient was ADMITTED to the medicine team for further evaluation and treatment of their presentation. All the reports of any imaging studies that were ordered by myself were reviewed by myself. SEPSIS Sepsis Screen Date sepsis recognized/suspect: Aug 12, 2025 Time Sepsis recognized/suspect: 324 Recent Procedure: No On Antibiotic Therapy: No Respiratory Rate >20: No Heart Rate >90: No Temp<36 C (96.8 F) or >38.3 C: No SBP <90 or MAP <65 mmHG: No New Acute Mental Status Change: No Is the patient on CPAP, BIPAP,: No Physician Orders Brass Pickler (08/12/25 ) Ct Ab Pel Wo Con-No Oral Or Iv (08/12/25 04:54) Blood Culture (08/12/25 03:27) Vital Signs Date Time Temp Pulse Resp B/P (MAP) Pulse Ox O2 Delivery O2 Flow Rate FiO2 08/12/25 06:48 97.7 33 17 85/43 (57) 97 97.7 08/12/25 06:27 145/92 08/12/25 06:25 98.1 62 20 145/92 (109) 97 98.1 08/12/25 05:26 74 20 98 Room Air* 0 21 08/12/25 03:22 97.5 68 14 125/90 96 97.5 Laboratory Tests Test 08/12/25 04:06 Lactic Acid Level 0.6 mmol/L (0.4-2.0) White Blood Count 8.9 10^3/uL (4.4-10.8) Medications Medications Dose Ordered Sig/Irasema Route Start Time Stop Time Status Last Admin Dose Admin Ceftriaxone Sodium 50 ml @ 100 mls/hr ONCE ONCE IV 08/12/25 05:45 08/12/25 06:14 DC 08/12/25 06:25 Fentanyl Citrate 100 mcg ONCE ONCE IV 08/12/25 05:45 08/12/25 05:46 DC 08/12/25 06:27 Sodium Chloride 1,000 ml @ 1,000 mls/hr Q1H ONCE IV 08/12/25 03:30 08/12/25 04:29 DC 08/12/25 05:08 Departure 1 Departure Time of Disposition: 04:05 Impression: Primary Impression: History of renal stent Additional Impression: UTI (urinary tract infection) Disposition: ADMITTED INPATIENT Admit to: Tele Condition: Guarded Discharged With: Self Critical Care Note Critical Care Time?: No I personally scribed for MIRIAM SILVA DO ([email or web address]) on 08/12/25 at 04:03. Elec tronically submitted by Kayode Alford ([email or web address]). I personally scribed for MIRIAM SILVA DO ([email or web address]) on 08/12/25 at 05:36. Electronically submitted by Kayode Alford [email or web address]). MIRIAM SILVA DO Aug 12, 2025 04:03
[2025-08-12 04:33] LABS: Hematocrit 39.2 % (41.0-53.0); Hemoglobin 13.3 g/dL (13.5-17.5); Mean Corpuscular Hemoglobin 29.1 pg (28.0-32.0); Mean Corpuscular Volume 86.0 fL (80.0-100.0); Nucleated Red Blood Cells % 0.0 %
[2025-08-12 04:42] LABS: Alanine Aminotransferase 15 U/L (7-40); Albumin 3.8 g/dL (3.2-4.8); Anion Gap 9 (5-15); BUN/Creatinine Ratio 15.5 (10.0-20.0); Bilirubin, Total 0.5 mg/dL (0.2-1.0); Blood Urea Nitrogen 15 mg/dL (9-23); Calcium 10.0 mg/dL (8.7-10.4); Carbon Dioxide 27 mmol/L (20-31); Glucose 97 mg/dL (74-106); Potassium 4.0 mmol/L (3.5-5.1); Sodium 144 mmol/L (136-145); Total Protein 6.3 g/dL (5.7-8.2)
[2025-08-12 04:46] LABS: Alkaline Phosphatase 128 U/L (46-116); Chloride 108 mmol/L (98-107)
[2025-08-12] MEDS: SODIUM CHLORIDE 0.9% 1,000 ML IV ONE ×2 (05:08→07:05)
[2025-08-12 05:26] VITALS: PULSE 74; RESP 20; O2SAT 98
--- NOTE | 2025-08-12 05:29 | DVH ---
EXAM: CT CT AB PEL WO CON-NO ORAL OR IV History: Urinary symptoms, stent Comparison Study: CT CT AB PEL WO CON-NO ORAL OR IV on DOS: 06/17/25. TECHNIQUE: Multidetector spiral CT of the abdomen and pelvis was performed from lung bases to pubic symphysis. Imaging was performed without intravenous contrast. Coronal and sagittal multiplanar reformats were obtained from the axial data set by the technologist. Radiation Dose : 1. Abdomen/Pelvis: CTDIvol 25.72 mGy, DLP 1651.5 mGy*cm. FINDINGS: Evaluation of vasculature and solid organs is limited due to lack of intravenous contrast use. Lung Bases: Lung bases are clear. Visualized portions of the heart and pericardium are unremarkable. Liver: The liver is normal in size. No focal lesions. Gallbladder and Biliary Tree: The gallbladder is surgically absent. No intrahepatic or extrahepatic biliary ductal dilatation. Spleen: Unremarkable Pancreas: The pancreas is grossly unremarkable. Adrenal Glands: Unremarkable Kidneys: There are bilateral nephroureteral stents with the tip coiled in the Bilateral renal pelves and The urinary bladder. Mild bilateral hydroureteronephrosis. Bilateral perinephric fat stranding. Punctate bilateral renal calculi. GI tract: The stomach is grossly normal in appearance. No evidence of small bowel wall thickening or abnormal dilatation to suggest bowel obstruction. The colon is unremarkable. The appendix is visualized and normal in caliber. Peritoneum/mesentery/retroperitoneum. No evidence of free intraperitoneal air. No ascites. No evidence of suspicious lymphadenopathy. Abdominal Wall: Unremarkable. Vasculature: The visualized abdominal aorta is normal in size and caliber. Evaluation of abdominal and pelvic vessels is limited due to lack of intravenous contrast. Urinary Bladder: Urinary bladder is underdistended and contains the coiled stents. There is moderate bladder wall thickening and fat stranding. Pelvic Organs: Unremarkable Musculoskeletal: No fracture or dislocation. Sclerotic appearance of the sacrum, iliac bones and pubic bones. IMPRESSION: 1. Bilateral nephroureteral stents with the tips coiled in the bilateral renal pelves and the urinary bladder. 2. Mild bilateral hydroureteronephrosis with Fat stranding. Punctate bilateral renal calculi. 3. Cholecystectomy. 4. Sclerosis in the pelvic bones of uncertain etiology.
[2025-08-12 05:44] LABS: Urine Protein, UAD 1+ (Negative)
[2025-08-12] MEDS: fentaNYL CITRATE 100 MCG/2 ML VL IV ONE (06:27)
[2025-08-12] MEDS ORDERED: ONDANSETRON HCL 4 MG/2 ML VIAL IV PRN (08:00)
[2025-08-12] MEDS ORDERED: ACETAMINOPHEN 325 MG TAB PO PRN (08:00)
[2025-08-12] MEDS: SODIUM CHLORIDE 0.9% 1,000 ML IV SCH (08:00)
[2025-08-12] MEDS ORDERED: DOCUSATE SOD 100 MG CAP PO PRN (08:00)
[2025-08-12] MEDS ORDERED: MORPHINE SULFATE 4 MG/ML SYR/VIAL IV PRN (08:15)
--- NOTE | 2025-08-12 08:15 | DVHHP2 ---
History of Present Illness Reason for Visit: Abdominal pain History of Present Illness Ab Moreno is a 45-year-old male with past medical history of hypertension, kidney stones, and bilateral uretal stents placed about 2 months ago, who came to the hospital for abdominal pain. Patient states the stents have been causing discomfort since being placed, but his pain has significantly worsened over the last couple of weeks. He states he has also been experiencing urinary frequency, and dysuria. He came to the hospital today due to the pain worsening. Cardiovascular: HTN Renal/: Other (Kidney stones) Past Surgical History: Cholecystectomy Smoke: No ALCOHOL: none Drugs: None Lives: with Family Domestic Violence: Neg Review of Systems Constitutional: No: Fever, Chills, Sweats, Weakness, Malaise, Other Eyes: No: Pain, Vision change, Conjunctivae inflammation, Eyelid inflammation, Other, Redness ENT: No: Ear pain, Ear discharge, Nose pain, Nose discharge, Nose congestion, Mouth pain, Mouth swelling, Throat pain, Throat swelling, Other Respiratory: No: Cough, Dry, Shortness of breath, SOB with excertion, Wheezing, Hemoptysis, Pleuritic Pain, Sputum, Wheezing, Other Cardiovascular: No: Chest Pain, Palpitations, Orthopnea, Paroxysmal Noc. Dyspnea, Edema, Lt Headedness, Other Gastrointestinal: Abdominal Pain (Bilateral pelvic pain, left worse); No: Nausea, Vomiting, Diarrhea, Constipation, Melena, Hematochezia, Other Genitourinary: Dysuria, Frequency; No Incontinence, No Hematuria, No Retention, No Other Musculoskeletal: No: other, neck pain, shoulder pain, arm pain, back pain, hand pain, leg pain, foot pain Skin: No: Rash, Lesions, Jaundice, Bruising, Other Neurological: No: Weakness, Numbness, Incoordination, Change in speech, Confusion, Seizures, Other Allergies: Coded Allergies: NO KNOWN ALLERGIES (Unverified , 05/21/25) Medications Current Medications Medications Dose Ordered Sig/Irasema Route Start Time Stop Time Status Last Admin Dose Admin Acetaminophen/ Hydrocodone Bitart 1 tab Q4HP PRN PO 08/12/25 08:00 UNV Ondansetron HCl 4 mg Q4HP PRN IV 08/12/25 08:00 UNV Docusate Sodium 100 mg BIDPRN PRN PO 08/12/25 08:00 UNV Acetaminophen 650 mg Q6HP PRN PO 08/12/25 08:00 UNV Morphine Sulfate 2 mg Q4HPRN PRN IV 08/12/25 08:00 UNV Exam Vital Signs Vital Signs Date Time Temp Pulse Resp B/P (MAP) Pulse Ox O2 Delivery O2 Flow Rate FiO2 08/12/25 07:37 55 19 120/76 (91) 99 08/12/25 06:48 97.7 97.7 08/12/25 05:26 Room Air* 0 21 General Appearance: Alert, Oriented X3, Cooperative, moderate distress HEENT: Atraumatic, PERRLA Respiratory: Clear to auscultation, Normal air movement Cardiovascular: Normal S1, Normal S2, Other (SB-SR) Abdominal: Normal bowel sounds, Soft, Other (left pelvic tenderness) Extremities: No clubbing, No cyanosis, No edema, Normal pulses, No tenderness/swelling Skin: No rashes, No breakdown, No significant lesion Neuro: Normal gait, Normal speech Psych/Mental Status: Mental status NL, Mood NL Labs/Xrays Labs Test 08/12/25 04:28 08/12/25 04:06 Range/Units Urine Color Colorless Yellow Urine Clarity Turbid H Clear Urine pH 7.0 5.0-9.0 Urine Specific [place] 1.011 1.001-1.035 Urine Protein 1+ H Negative Urine Ketones Negative Negative Urine Blood 3+ H Negative /uL Urine Nitrite Negative Negative Urine Bilirubin Negative Negative Urine Urobilinogen Normal Negative mg/dL Urine Leukocyte Esterase 3+ Negative /uL Urine RBC 757 0 - 3 /hpf Urine Microscopic WBC 29 H 0-3 /HPF Urine Squamous Epithelial Cells Few <5 /hpf Urine Bacteria None seen None Seen /hpf Urine Mucus Few None Seen Urine Glucose Normal Normal mg/dL White Blood Count 8.9 4.4-10.8 10^3/uL Red Blood Count 4.56 4.5-5.90 10^6/uL Hemoglobin 13.3 L 13.5-17.5 g/dL Hematocrit 39.2 L 41.0-53.0 % Mean Corpuscular Volume 86.0 80.0-100.0 fL Mean Corpuscular Hemoglobin 29.1 28.0-32.0 pg Mean Corpuscular Hemoglobin Concent 33.8 32.0-36.0 g/dL Red Cell Distribution Width 14.3 11.8-14.3 % Platelet Count 241 140-450 10^3/uL Mean Platelet Volume 8.2 6.9-10.8 fL Neutrophils (%) (Auto) 66.4 37.0-80.0 % Lymphocytes (%) (Auto) 23.1 10.0-50.0 % Monocytes (%) (Auto) 5.5 0.0-12.0 % Eosinophils (%) (Auto) 4.0 0.0-7.0 % Basophils (%) (Auto) 1.0 0.0-2.0 % Neutrophils # (Auto) 5.9 1.6-8.6 10 ^3/uL Lymphocytes # (Auto) 2.1 0.4-5.4 10 ^3/uL Monocytes # (Auto) 0.5 0-1.3 10 ^3/uL Eosinophils # (Auto) 0.4 0-0.8 10 ^3/uL Basophils # (Auto) 0.1 0-0.2 10 ^3/uL Nucleated Red Blood Cells 0.0 % Sodium Level 144 136-145 mmol/L Potassium Level 4.0 3.5-5.1 mmol/L Chloride Level 108 H 98-107 mmol/L Carbon Dioxide Level 27 20-31 mmol/L Anion Gap 9 5-15 Blood Urea Nitrogen 15 9-23 mg/dL Creatinine 0.97 0.700-1.30 mg/dL Glomerular Filtration Rate Calc 99 >90 mL/min BUN/Creatinine Ratio 15.5 10.0-20.0 Serum Glucose 97 74-106 mg/dL Lactic Acid Level 0.6 0.4-2.0 mmol/L Calcium Level 10.0 8.7-10.4 mg/dL Total Bilirubin 0.5 0.2-1.0 mg/dL Aspartate Amino Transferase (AST) 23 13-40 U/L Alanine Aminotransferase (ALT) 15 7-40 U/L Alkaline Phosphatase 128 H 46-116 U/L Total Protein 6.3 5.7-8.2 g/dL Albumin 3.8 3.2-4.8 g/dL EXAM: CT CT AB PEL WO CON-NO ORAL OR IV FINDINGS: Evaluation of vasculature and solid organs is limited due to lack of intravenous contrast use. Lung Bases: Lung bases are clear. Visualized portions of the heart and pericardium are unremarkable. Liver: The liver is normal in size. No focal lesions. Gallbladder and Biliary Tree: The gallbladder is surgically absent. No intrahepatic or extrahepatic biliary ductal dilatation. Spleen: Unremarkable Pancreas: The pancreas is grossly unremarkable. Adrenal Glands: Unremarkable Kidneys: There are bilateral nephroureteral stents with the tip coiled in the Bilateral renal pelves and The urinary bladder. Mild bilateral hydrourete ronephrosis. Bilateral perinephric fat stranding. Punctate bilateral renal calculi. GI tract: The stomach is grossly normal in appearance. No evidence of small bowel wall thickening or abnormal dilatation to suggest bowel obstruction. The colon is unremarkable. The appendix is visualized and normal in caliber. Peritoneum/mesentery/retroperitoneum. No evidence of free intraperitoneal air. No ascites. No evidence of suspicious lymphadenopathy. Abdominal Wall: Unremarkable. Vasculature: The visualized abdominal aorta is normal in size and caliber. Evaluation of abdominal and pelvic vessels is limited due to lack of intravenous contrast. Urinary Bladder: Urinary bladder is underdistended and contains the coiled stents. There is moderate bladder wall thickening and fat stranding. Pelvic Organs: Unremarkable Musculoskeletal: No fracture or dislocation. Sclerotic appearance of the sacrum, iliac bones and pubic bones. IMPRESSION: 1. Bilateral nephroureteral stents with the tips coiled in the bilateral renal pelves and the urinary bladder. 2. Mild bilateral hydroureteronephrosis with Fat stranding. Punctate bilateral renal calculi. 3. Cholecystectomy. 4. Sclerosis in the pelvic bones of uncertain etiology. SEPSIS Sepsis Screen Date sepsis recognized/suspect: Aug 12, 2025 Time Sepsis recognized/suspect: 324 Recent Procedure: No On Antibiotic Therapy: No Respiratory Rate >20: No Heart Rate >90: No Temp<36 C (96.8 F) or >38.3 C: No SBP <90 or MAP <65 mmHG: No New Acute Mental Status Change: No Is the patient on CPAP, BIPAP,: No Physician Orders Tangled Yarn Worker (08/12/25 ) Ct Ab Pel Wo Con-No Oral Or Iv (08/12/25 04:54) Blood Culture (08/12/25 03:27) Sodium Chloride 0.9% (08/12/25 07:15) Admit (08/12/25 07:47) Code Status (08/12/25 07:47) Hydrocodone-Acet 5/325mg Tab ([place] 5/32 (08/12/25 08:00) Ondansetron Hcl (Zofran) (08/12/25 08:00) Docusate Sodium Capsule (Colace Capsule) (08/12/25 08:00) Complete Blood Count (08/13/25 04:00) Comprehensive Metabolic Panel (08/13/25 04:00) Npo (Nothing By Mouth) Diet (08/12/25 Breakfast) Condition: Serious (08/12/25 07:47) Acetaminophen Tablet (Tylenol Tablet) (08/12/25 08:00) Morphine Sulfate Injection (08/12/25 08:00) * Urology Consult (08/12/25 07:47) NS (08/12/25 08:00) Ceftriaxone Ivpb Rocephin (08/13/25 09:00) Vital Signs Date Time Temp Pulse Resp B/P (MAP) Pulse Ox O2 Delivery O2 Flow Rate FiO2 08/12/25 07:37 55 19 120/76 (91) 99 08/12/25 06:48 97.7 33 17 85/43 (57) 97 97.7 08/12/25 06:27 145/92 08/12/25 06:25 98.1 62 20 145/92 (109) 97 98.1 08/12/25 05:26 74 20 98 Room Air* 0 21 08/12/25 03:22 97.5 68 14 125/90 96 97.5 Laboratory Tests Test 08/12/25 04:06 Lactic Acid Level 0.6 mmol/L (0.4-2.0) White Blood Count 8.9 10^3/uL (4.4-10.8) Medications Medications Dose Ordered Sig/Irasema Route Start Time Stop Time Status Last Admin Dose Admin Ceftriaxone Sodium 50 ml @ 100 mls/hr ONCE ONCE IV 08/12/25 05:45 08/12/25 06:14 DC 08/12/25 06:25 100 MLS/HR Fentanyl Citrate 100 mcg ONCE ONCE IV 08/12/25 05:45 08/12/25 05:46 DC 08/12/25 06:27 100 MCG Sodium Chloride 1,000 ml @ 1,000 mls/hr Q1H ONCE IV 08/12/25 03:30 08/12/25 04:29 DC 08/12/25 05:08 1,000 MLS/HR Sodium Chloride 1,000 ml @ 1,000 mls/hr Q1H ONCE IV 08/12/25 07:15 08/12/25 08:14 08/12/25 07:05 1,000 MLS/HR Assessment/Plan Assessment/Plan Assessment: Hydronephrosis, Hydroureteronephrosis, Uretal stents, UTI, Hypertension, Plan: Admit to Med-Surg, Urology consult, IV antibiotics, IV hydration, Pain management, Home medications reconciled, Plan discussed with: Patient, Spouse My Orders Orders - ELOINA COONEY Procedure Category Date Status Time Admit ADMIT 08/12/25 Transmitted 07:47 Code Status CODE 08/12/25 Transmitted 07:47 Hydrocodone-Acet PHA 08/12/25 Logged 5/325mg Tab (Papillion 08:00 Ondansetron Hcl PHA 08/12/25 Logged (Zofran) 08:00 Docusate Sodium PHA 08/12/25 Logged Capsule (Colace 08:00 Complete Blood Count LAB 08/13/25 Verified 04:00 Comprehensive LAB 08/13/25 Verified Metabolic Panel 04:00 Npo (Nothing By DIET 08/12/25 Transmitted Mouth) Diet Breakfast Condition: Serious TU 08/12/25 In Process 07:47 Acetaminophen Tablet PHA 08/12/25 Logged (Tylenol Tablet) 08:00 Morphine Sulfate PHA 08/12/25 Logged Injection 08:00 * Urology Consult CONS 08/12/25 Transmitted 07:47 NS PHA 08/12/25 Verified 08:00 Ceftriaxone Ivpb PHA 08/13/25 Verified Rocephin 09:00 Date of Service: Aug 12, 2025 Billing Provider: ELOINA COONEY Common Visit Codes: [id number] INP/OBS CARE (MOD) ELOINA COONEY Aug 12, 2025 08:15
[2025-08-12] MEDS: HYDROcodone-ACET 5/325MG TAB PO PRN (21:52)
[2025-08-12 22:22] VITALS: BP 142/80; PULSE 60; PULSE 65; RESP 16; RESP 18; TEMP 97.2; O2SAT 97; O2SAT 99
[2025-08-13 01:00] VITALS: BP 150/90; PULSE 63; RESP 18; TEMP 97; O2SAT 98
[2025-08-13 05:00] VITALS: BP 149/95; PULSE 61; RESP 16; TEMP 98.6; O2SAT 99
[2025-08-13 06:39] LABS: Hematocrit 36.8 % (41.0-53.0); Hemoglobin 12.6 g/dL (13.5-17.5); Mean Corpuscular Hemoglobin 29.7 pg (28.0-32.0); Mean Corpuscular Volume 86.7 fL (80.0-100.0); Nucleated Red Blood Cells % 0.0 %
[2025-08-13 06:46] LABS: Potassium 3.7 mmol/L (3.5-5.1); Sodium 143 mmol/L (136-145)
[2025-08-13 06:47] LABS: Anion Gap 8 (5-15); Calcium 10.2 mg/dL (8.7-10.4); Carbon Dioxide 25 mmol/L (20-31)
[2025-08-13 06:50] LABS: Chloride 110 mmol/L (98-107)
[2025-08-13 06:52] LABS: BUN/Creatinine Ratio 15.5 (10.0-20.0); Blood Urea Nitrogen 13 mg/dL (9-23); Glucose 89 mg/dL (74-106)
[2025-08-13 06:53] LABS: Alkaline Phosphatase 121 U/L (46-116); Total Protein 6.3 g/dL (5.7-8.2)
[2025-08-13 06:54] LABS: Albumin 3.5 g/dL (3.2-4.8); Bilirubin, Total 0.4 mg/dL (0.2-1.0)
[2025-08-13 07:04] LABS: Alanine Aminotransferase 10 U/L (7-40)
[2025-08-13 09:20] VITALS: BP 138/92; PULSE 59; RESP 18; O2SAT 99
[2025-08-13] MEDS: HYDROmorphone HCL 2 MG/ML VL/or syr IV PRN (11:51)
--- NOTE | 2025-08-13 13:05 | DVHINCON2 ---
Date of service: Aug 13, 2025 Referring Physician Hospitalist Reason for Consultation Bilateral ureteral stents History of Present Illness 45-year-old male with past medical history of hypertension, kidney stones, and bilateral uretal stents placed about 2 months ago, who came to the hospital for abdominal pain. Patient states the stents have been causing discomfort since being placed, but his pain has significantly worsened over the last couple of weeks. He states he has also been experiencing urinary frequency, and dysuria. He came to the hospital today due to the pain worsening. Past Medical History Cardiovascular: HTN Renal/: Other (Kidney stones) Past Surgical History Cholecystectomy Bilateral ureteral stents Bilateral ESWL (07/10/25) Family History: Diabetes mellitus G8 MOTHER Hypertension G8 FATHER Allergies: Coded Allergies: NO KNOWN ALLERGIES (Unverified , 05/21/25) Home Meds Active Scripts Tamsulosin Hcl (Flomax) 0.4 Mg Cap, 0.4 MG PO QPM, #14 CAP Prov:LONG PIERSON MD 06/09/25 Reported Medications Lisinopril & Hydrochlorothiazi (Lisinopril/Hydrochlorothi) 1 Tab Tab, 1 TAB PO QAM 06/05/25 Current Medications Current Medications Medications (Trade) Dose Ordered Sig/Irasema Route PRN Reason Start Time Stop Time Status Last Admin Ceftriaxone Sodium 50 ml @ 100 mls/hr DAILY@09 IV 08/13/25 09:00 08/13/25 09:42 Patient Own Medication 1 tab QAM PO 08/13/25 07:00 Hydromorphone HCl (Dilaudid Injection) 0.5 mg Q3HPRN PRN IV SEVERE PAIN (7-10 PAIN SCALE) 08/13/25 11:45 08/13/25 11:51 Review of Systems Constitutional: No: Fever, Chills, Sweats, Weakness, Malaise, Other Eyes: No: Pain, Vision change, Conjunctivae inflammation, Eyelid inflammation, Other, Redness ENT: No: Ear pain, Ear discharge, Nose pain, Nose discharge, Nose congestion, Mouth pain, Mouth swelling, Throat pain, Throat swelling, Other Respiratory: No: Cough, Dry, Shortness of breath, SOB with excertion, Wheezing, Hemoptysis, Pleuritic Pain, Sputum, Wheezing, Other Cardiovascular: No: Chest Pain, Palpitations, Orthopnea, Paroxysmal Noc. Dysp jackson, Edema, Lt Headedness, Other Gastrointestinal: Abdominal Pain (Bilateral pelvic pain, left worse); No: Nausea, Vomiting, Diarrhea, Constipation, Melena, Hematochezia, Other Genitourinary: Dysuria, Frequency; No Incontinence, No Hematuria, No Retention, No Other Musculoskeletal: No: other, neck pain, shoulder pain, arm pain, back pain, hand pain, leg pain, foot pain Skin: No: Rash, Lesions, Jaundice, Bruising, Other Neurological: No: Weakness, Numbness, Incoordination, Change in speech, Confusion, Seizures, Other Allergies: Coded Allergies: NO KNOWN ALLERGIES (Unverified , 05/21/25) Medications Current Medications Medications Dose Ordered Sig/Irasema Route Start Time Stop Time Status Last Admin Dose Admin Acetaminophen/ Hydrocodone Bitart 1 tab Q4HP PRN PO 08/12/25 08:00 UNV Ondansetron HCl 4 mg Q4HP PRN IV 08/12/25 08:00 UNV Docusate Sodium 100 mg BIDPRN PRN PO 08/12/25 08:00 UNV Acetaminophen 650 mg Q6HP PRN PO 08/12/25 08:00 UNV Morphine Sulfate 2 mg Q4HPRN PRN IV 08/12/25 08:00 UNV Vital Signs Vital Signs Date Time Temp Pulse Resp B/P (MAP) Pulse Ox O2 Delivery O2 Flow Rate FiO2 08/13/25 11:51 62 18 148/97 08/13/25 09:20 99 08/13/25 05:00 98.6 98.6 08/12/25 22:22 Room Air* 0 21 Physical Exam Vital Signs Date Time Temp Pulse Resp B/P (MAP) Pulse Ox O2 Delivery O2 Flow Rate FiO2 08/12/25 07:37 55 19 120/76 (91) 99 08/12/25 06:48 97.7 97.7 08/12/25 05:26 Room Air* 0 21 General Appearance: Alert, Oriented X3, Cooperative, moderate distress HEENT: Atraumatic, PERRLA Respiratory: Clear to auscultation, Normal air movement Cardiovascular: Normal S1, Normal S2, Other (SB-SR) Abdominal: Normal bowel sounds, Soft, Other (left pelvic tenderness) Extremities: No clubbing, No cyanosis, No edema, Normal pulses, No tenderness/swelling Skin: No rashes, No breakdown, No significant lesion Neuro: Normal gait, Normal speech Psych/Mental Status: Mental status NL, Mood NL Labs/Diagnostic Data Labs Test 08/13/25 05:48 08/13/25 05:45 08/12/25 04:28 08/12/25 04:06 Range/Units White Blood Count 8.2 4.4-10.8 10^3/uL Red Blood Count 4.25 L 4.5-5.90 10^6/uL Hemoglobin 12.6 L 13.5-17.5 g/dL Hematocrit 36.8 L 41.0-53.0 % Mean Corpuscular Volume 86.7 80.0-100.0 fL Mean Corpuscular Hemoglobin 29.7 28.0-32.0 pg Mean Corpuscular Hemoglobin Concent 34.3 32.0-36.0 g/dL Red Cell Distribution Width 14.4 H 11.8-14.3 % Platelet Count 223 140-450 10^3/uL Mean Platelet Volume 8.4 6.9-10.8 fL Neutrophils (%) (Auto) 66.8 37.0-80.0 % Lymphocytes (%) (Auto) 21.8 10.0-50.0 % Monocytes (%) (Auto) 6.8 0.0-12.0 % Eosinophils (%) (Auto) 4.1 0.0-7.0 % Basophils (%) (Auto) 0.5 0.0-2.0 % Neutrophils # (Auto) 5.5 1.6-8.6 10 ^3/uL Lymphocytes # (Auto) 1.8 0.4-5.4 10 ^3/uL Monocytes # (Auto) 0.6 0-1.3 10 ^3/uL Eosinophils # (Auto) 0.3 0-0.8 10 ^3/uL Basophils # (Auto) 0 0-0.2 10 ^3/uL Nucleated Red Blood Cells 0.0 % Sodium Level 143 136-145 mmol/L Potassium Level 3.7 3.5-5.1 mmol/L Chloride Level 110 H 98-107 mmol/L Carbon Dioxide Level 25 20-31 mmol/L Anion Gap 8 5-15 Blood Urea Nitrogen 13 9-23 mg/dL Creatinine 0.84 0.700-1.30 mg/dL Glomerular Filtration Rate Calc 110 >90 mL/min BUN/Creatinine Ratio 15.5 10.0-20.0 Serum Glucose 89 74-106 mg/dL Calcium Level 10.2 8.7-10.4 mg/dL Total Bilirubin 0.4 0.2-1.0 mg/dL Aspartate Amino Transferase (AST) 16 13-40 U/L Alanine Aminotransferase (ALT) 10 7-40 U/L Alkaline Phosphatase 121 H 46-116 U/L Total Protein 6.3 5.7-8.2 g/dL Albumin 3.5 3.2-4.8 g/dL Urine Color Colorless Yellow Urine Clarity Turbid H Clear Urine pH 7.0 5.0-9.0 Urine Specific [place] 1.011 1.001-1.035 Urine Protein 1+ H Negative Urine Ketones Negative Negative Urine Blood 3+ H Negative /uL Urine Nitrite Negative Negative Urine Bilirubin Negative Negative Urine Urobilinogen Normal Negative mg/dL Urine Leukocyte Esterase 3+ Negative /uL Urine RBC 757 0 - 3 /hpf Urine Microscopic WBC 29 H 0-3 /HPF Urine Squamous Epithelial Cells Few <5 /hpf Urine Bacteria None seen None Seen /hpf Urine Mucus Few None Seen Urine Glucose Normal Normal mg/dL Lactic Acid Level 0.6 0.4-2.0 mmol/L Microbiology Date/Time Source Procedure Growth Status 08/12/25 04:06 Blood Blood Culture - Preliminary NO GROWTH AFTER 24 HOURS OF INCUBATION. Resulted PATIENT: VIDHYA DIAZ ACCT: [id number] UNIT: [id number] : 1980 LOC: ER ROOM / BED: / AGE / SEX: 45 / M ADM STATUS: REG ER SERVICE [id number] ORDERING PHYSICIAN: MIRIAM SILVA DO PROCEDURE(s): ABPL - CT AB PEL WO CON-NO ORAL OR IV REASON: urinary symptoms, stent ORDER NUMBER(s): [id number], ACCESSION NUMBER(s): [id number] EXAM: CT CT AB PEL WO CON-NO ORAL OR IV History: Urinary symptoms, stent Comparison Study: CT CT AB PEL WO CON-NO ORAL OR IV on DOS: 06/17/25. TECHNIQUE: Multidetector spiral CT of the abdomen and pelvis was performed from lung bases to pubic symphysis. Imaging was performed without intravenous contrast. Coronal and sagittal multiplanar reformats were obtained from the axial data set by the technologist. Radiation Dose : 1. Abdomen/Pelvis: CTDIvol 25.72 mGy, DLP 1651.5 mGy*cm. FINDINGS: Evaluation of vasculature and solid organs is limited due to lack of intravenous contrast use. Lung Bases: Lung bases are clear. Visualized portions of the heart and pericardium are unremarkable. Liver: The liver is normal in size. No focal lesions. Gallbladder and Biliary Tree: The gallbladder is surgically absent. No intrahepatic or extrahepatic biliary ductal dilatation. Spleen: Unremarkable Pancreas: The pancreas is grossly unremarkable. Adrenal Glands: Unremarkable Kidneys: There are bilateral nephroureteral stents with the tip coiled in the Bilateral renal pelves and The urinary bladder. Mild bilateral hydroureteronephrosis. Bilateral perinephric fat stranding. Punctate bilateral renal calculi. GI tract: The stomach is grossly normal in appearance. No evidence of small bowel wall thickening or abnormal dilatation to suggest bowel obstruction. The colon is unremarkable. The appendix is visualized and normal in caliber. Peritoneum/mesentery/retroperitoneum. No evidence of free intraperitoneal air. No ascites. No evidence of suspicious lymphadenopathy. Abdominal Wall: Unremarkable. Vasculature: The visualized abdominal aorta is normal in size and caliber. Evaluation of abdominal and pelvic vessels is limited due to lack of intravenous contrast. Urinary Bladder: Urinary bladder is underdistended and contains the coiled jonny nts. There is moderate bladder wall thickening and fat stranding. Pelvic Organs: Unremarkable Musculoskeletal: No fracture or dislocation. Sclerotic appearance of the sacrum, iliac bones and pubic bones. IMPRESSION: 1. Bilateral nephroureteral stents with the tips coiled in the bilateral renal pelves and the urinary bladder. 2. Mild bilateral hydroureteronephrosis with Fat stranding. Punctate bilateral renal calculi. 3. Cholecystectomy. 4. Sclerosis in the pelvic bones of uncertain etiology. ATED BY: TOMMY GOTTI MD DICTATED DATE/TIME: 08/12/25525 SIGNED BY: TOMMY GOTTI MD SIGNED DATE/TIME: 08/12/25525 CC: Assessment Bilateral ureteral stents Bilateral renal stones Abdominal pain Plan/Recommendation Cystoscopy with bilateral ureteral stents removal Plan discussed with: Patient, Other SOIRIS DARBY MD Aug 13, 2025 13:05
--- NOTE | 2025-08-13 13:17 | DVHPN2 ---
Subjective Seen in bed with pain Reviewed: H&P Changes from previous H/P or p: No Changes Eyes: No Pain, No Vision change, No Conjunctivae inflammation, No Eyelid inflammation, No Other, No Redness ENT: No Ear pain, No Ear discharge, No Nose pain, No Nose discharge, No Nose congestion, No Mouth pain, No Mouth swelling, No Throat pain, No Throat swelling, No Other Cardiovascular: No Chest Pain, No Palpitations, No Orthopnea, No Paroxysmal Noc. Dyspnea, No Edema, No Lt Headedness, No Other Respiratory: No Cough, No Dry, No Shortness of breath, No SOB with excertion, No Wheezing, No Hemoptysis, No Pleuritic Pain, No Sputum, No Other Gastrointestinal: No Nausea, No Vomiting; Abdominal Pain (Bilateral pelvic pain, left worse); No Diarrhea, No Constipation, No Melena, No Hematochezia, No Other Genitourinary: Dysuria, Frequency; No Incontinence, No Hematuria, No Retention, No Other Musculoskeletal: No other, No neck pain, No shoulder pain, No arm pain, No back pain, No hand pain, No leg pain, No foot pain Skin: No Rash, No Lesions, No Jaundice, No Bruising, No Other Objective Vitals Vital Signs Date Time Temp Pulse Resp B/P (MAP) Pulse Ox O2 Delivery O2 Flow Rate FiO2 08/13/25 11:51 62 18 148/97 08/13/25 09:20 99 08/13/25 05:00 98.6 98.6 08/12/25 22:22 Room Air* 0 21 Intake/Output Intake and Output 08/13/25 07:00 Intake Total 50 ml Balance 50 ml Intake IV Total 50 ml General Appearance: Alert HEENT: Atraumatic Lungs: Clear to auscultation Cardiovascular: Regular rate, Normal S1, Normal S2 Abdomen: Normal bowel sounds Medications Current Medications Medications Dose Ordered Sig/Irasema Route Start Time Stop Time Status Last Admin Dose Admin Acetaminophen/ Hydrocodone Bitart 1 tab Q4HP PRN PO 08/12/25 08:00 08/13/25 02:59 1 TAB Ondansetron HCl 4 mg Q4HP PRN IV 08/12/25 08:00 Docusate Sodium 100 mg BIDPRN PRN PO 08/12/25 08:00 Acetaminophen 650 mg Q6HP PRN PO 08/12/25 08:00 Sodium Chloride 1,000 ml @ 125 mls/hr Q8H IV 08/12/25 08:00 Ceftriaxone Sodium 50 ml @ 100 mls/hr DAILY@09 IV 08/13/25 09:00 08/13/25 09:42 100 MLS/HR Patient Own Medication 1 tab QAM PO 08/13/25 07:00 Hydromorphone HCl 0.5 mg Q3HPRN PRN IV 08/13/25 11:45 08/13/25 11:51 0.5 MG Laboratory Results Laboratory Tests 08/13/25 05:45 08/13/25 05:48 Chemistry Test 08/13/25 05:45 Albumin 3.5 g/dL (3.2-4.8) Calcium Level 10.2 mg/dL (8.7-10.4) Total Protein 6.3 g/dL (5.7-8.2) LFT Test 08/13/25 05:45 Alanine Aminotransferase (ALT) 10 U/L (7-40) Alkaline Phosphatase 121 U/L (46-116) H Aspartate Amino Transferase (AST) 16 U/L (13-40) Total Bilirubin 0.4 mg/dL (0.2-1.0) Urinalysis Test 08/12/25 04:28 Urine Color Colorless (Yellow) Urine Clarity Turbid (Clear) H Urine pH 7.0 (5.0-9.0) Urine Specific [place] 1.011 (1.001-1.035) Urine Protein 1+ (Negative) H Urine Ketones Negative (Negative) Urine Blood 3+ /uL (Negative) H Urine Nitrite Negative (Negative) Urine Bilirubin Negative (Negative) Urine Urobilinogen Normal mg/dL (Negative) Urine Leukocyte Esterase 3+ /uL (Negative) Urine RBC 757 /hpf (0 - 3) Urine Microscopic WBC 29 /HPF (0-3) H Urine Squamous Epithelial Cells Few /hpf (<5) Urine Bacteria None seen /hpf (None Seen) Urine Mucus Few (None Seen) Urine Glucose Normal mg/dL (Normal) Microbiology Microbiology Date/Time Source Procedure Growth Status 08/12/25 04:06 Blood Blood Culture - Preliminary NO GROWTH AFTER 24 HOURS OF INCUBATION. Resulted Assessment/Plan Assessment/Plan Hydronephrosis, Hydroureteronephrosis, Uretal stents, UTI, Hypertension, IV abx going for stent removal pain control with dilaudid Plan discussed with: Patient My Orders Orders - RAMOS VARGAS MD Procedure Category Date Status Time Hydromorphone PHA 08/13/25 In Process Injection (Dilaudid 11:45 Date of Service: Aug 13, 2025 Billing Provider: RAMOS VARGAS MD Common Visit Codes: [id number] INP/OBS CARE(HIGH) RAMOS VARGAS MD Aug 13, 2025 13:17
[2025-08-13 13:30] VITALS: BP 128/83; PULSE 62; RESP 16; TEMP 97.8; O2SAT 97
[2025-08-13 21:00] VITALS: BP 142/93; PULSE 69; RESP 18; TEMP 97.8; O2SAT 98
[2025-08-14] VITALS (7 sets, daily range): BP systolic 111–144; BP diastolic 77–93; PULSE 65–75; RESP 13–20; TEMP 97.5–98.4; O2SAT 92–98
[2025-08-14] MEDS ORDERED: METOCLOPRAMIDE HCL 5MG/ml INJ 2ml VIAL IV PRN (12:45)
[2025-08-14] MEDS ORDERED: HYDROmorphone HCL 2 MG/ML VL/or syr IV PRN (12:45)
[2025-08-14] MEDS ORDERED: KETOROLAC TROMETH 30 MG/ML 1ML VIAL IV ONE (12:45)
[2025-08-14] MEDS ORDERED: ONDANSETRON HCL 4 MG/2 ML VIAL IV PRN (12:45)
[2025-08-14] MEDS ORDERED: fentaNYL CITRATE 100 MCG/2 ML VL ONE (12:58)
[2025-08-14] MEDS ORDERED: MIDAZOLAM HCL 2MG/2ML 2ml VIAL (1mg/ml) ONE (12:58)
[2025-08-14] MEDS ORDERED: ONDANSETRON HCL 4 MG/2 ML VIAL ONE (12:58)
[2025-08-14] MEDS ORDERED: METOCLOPRAMIDE HCL 5MG/ml INJ 2ml VIAL ONE (12:58)
[2025-08-14] MEDS ORDERED: LIDOCAINE 2% (LOCAL ANESTH.) PF 5ml SDV ONE (12:58)
[2025-08-14] MEDS ORDERED: PROPOFOL 10 MG/ML 20 ML IV ONE (12:59)
--- NOTE | 2025-08-14 14:24 | DVHOP2 ---
Operative Report - 2 Report Details Date: 08/14/25 Preop Diagnosis: Bilateral ureteral stents Postop Diagnosis: Same Surgeon: Osiris Darby Anesthesiologist: Henry Mendenhall CRNA Anesthesia: Mac Consent: The patient was informed of the risks and benefits of the procedure. These include but are not limited to complications of anesthesia, postoperative infection, incomplete relief of symptoms, recurrence of symptoms, damage to blood vessels, nerves and tendons, deep venous thrombosis, pulmonary embolism and possible need for repeat surgery in the future. Name of Procedure Performed Cystoscopy with bilateral ureteral stents removal Procedure Details Procedure Details: Patient was taken to the operating room and underwent monitored anesthesia. He was placed in dorsal lithotomy position with the area of the genitalia prepped and draped in usual sterile manner. Twenty-one Maori rigid cystoscope was used to inspect the urethra in the bladder. The stents were identified and removed using the grasping forceps. Patient tolerated procedure well. He was awakened and taken to recovery room in stable condition Specimen: Ureteral stents bilateral Condition Good Disposition Home OSIRIS DARBY MD Aug 14, 2025 14:24
--- NOTE | 2025-08-14 16:55 | DVHDS2 ---
Discharge Summary Date of Admission Aug 12, 2025 at 07:47 Date of Discharge: Aug 14, 2025 Labs/Diagnostic Data: Laboratory Results Test 08/13/25 05:48 08/13/25 05:45 08/12/25 04:28 08/12/25 04:06 White Blood Count 8.2 10^3/uL (4.4-10.8) Red Blood Count 4.25 10^6/uL (4.5-5.90) Hemoglobin 12.6 g/dL (13.5-17.5) Hematocrit 36.8 % (41.0-53.0) Mean Corpuscular Volume 86.7 fL (80.0-100.0) Mean Corpuscular Hemoglobin 29.7 pg (28.0-32.0) Mean Corpuscular Hemoglobin Concent 34.3 g/dL (32.0-36.0) Red Cell Distribution Width 14.4 % (11.8-14.3) Platelet Count 223 10^3/uL (140-450) Mean Platelet Volume 8.4 fL (6.9-10.8) Neutrophils (%) (Auto) 66.8 % (37.0-80.0) Lymphocytes (%) (Auto) 21.8 % (10.0-50.0) Monocytes (%) (Auto) 6.8 % (0.0-12.0) Eosinophils (%) (Auto) 4.1 % (0.0-7.0) Basophils (%) (Auto) 0.5 % (0.0-2.0) Neutrophils # (Auto) 5.5 10 ^3/uL (1.6-8.6) Lymphocytes # (Auto) 1.8 10 ^3/uL (0.4-5.4) Monocytes # (Auto) 0.6 10 ^3/uL (0-1.3) Eosinophils # (Auto) 0.3 10 ^3/uL (0-0.8) Basophils # (Auto) 0 10 ^3/uL (0-0.2) Nucleated Red Blood Cells 0.0 % Sodium Level 143 mmol/L (136-145) Potassium Level 3.7 mmol/L (3.5-5.1) Chloride Level 110 mmol/L (98-107) Carbon Dioxide Level 25 mmol/L (20-31) Anion Gap 8 (5-15) Blood Urea Nitrogen 13 mg/dL (9-23) Creatinine 0.84 mg/dL (0.700-1.30) Glomerular Filtration Rate Calc 110 mL/min (>90) BUN/Creatinine Ratio 15.5 (10.0-20.0) Serum Glucose 89 mg/dL (74-106) Calcium Level 10.2 mg/dL (8.7-10.4) Total Bilirubin 0.4 mg/dL (0.2-1.0) Aspartate Amino Transferase (AST) 16 U/L (13-40) Alanine Aminotransferase (ALT) 10 U/L (7-40) Alkaline Phosphatase 121 U/L (46-116) Total Protein 6.3 g/dL (5.7-8.2) Albumin 3.5 g/dL (3.2-4.8) Urine Color Colorless (Yellow) Urine Clarity Turbid (Clear) Urine pH 7.0 (5.0-9.0) Urine Specific [place] 1.011 (1.001-1.035) Urine Protein 1+ (Negative) Urine Ketones Negative (Negative) Urine Blood 3+ /uL (Negative) Urine Nitrite Negative (Negative) Urine Bilirubin Negative (Negative) Urine Urobilinogen Normal mg/dL (Negative) Urine Leukocyte Esterase 3+ /uL (Negative) Urine RBC 757 /hpf (0 - 3) Urine Microscopic WBC 29 /HPF (0-3) Urine Squamous Epithelial Cells Few /hpf (<5) Urine Bacteria None seen /hpf (None Seen) Urine Mucus Few (None Seen) Urine Glucose Normal mg/dL (Normal) Lactic Acid Level 0.6 mmol/L (0.4-2.0) Other Laboratory Tests 08/13/25 05:48 08/13/25 05:45 Brief Hx & Hospital Course: 45-year-old male with past medical history of hypertension, kidney stones, and bilateral uretal stents placed about 2 months ago, who came to the hospital for abdominal pain. Patient states the stents have been causing discomfort since being placed, but his pain has significantly worsened over the last couple of weeks. He states he has also been experiencing urinary frequency, and dysuria. He came to the hospital today due to the pain worsening. Had ureteral stent dislodgement Had stent removed Condition at Discharge: Good Final Diagnosis/Problems List ureteral stent dislogdment Discharge Disposition: Home Discharge Instruct/Medications Diet: Regular Activity: No Restrictions, As Tolerated Follow Up/Referral: PCP in 7 DAYS Medications: same inder emedications Scheduled Lisinopril & Hydrochlorothiazi (Lisinopril/Hydrochlorothi), 1 TAB PO QAM, (Reported) Tamsulosin Hcl (Flomax), 0.4 MG PO QPM Discharge Statement: "Patient was advised to return to the ER or call 911 if any headaches, dizziness, shortness of breath, chest pain, abdominal pain, bleeding, fevers, or worsening of medical condition. Patient was counseled about treatment plan, medications, possible side effects, patientverbalized understanding. All questions were answered to the best of my ability. This discharge took greater then 30 minutes in planning, reviewing documentation, counseling the patient, and discussing with other team members." ASSESSMENT ASSESSMENT Assessment ureteral stent dislogdment Date of Service: Aug 14, 2025 Billing Provider: RAMOS VARGAS MD Common Visit Codes: 43681-XVA/OBS DISCH DAY >30min RAMOS VARGAS MD Aug 14, 2025 16:55
== END 2025-08-14 18:11 | disposition home or self-care (01) | DRG 699 ==
LOC: ER 03:18 → OVERFLOW 07:47 → WEST WING 08-13 16:35
PROVIDERS: ADMIT Hospitalist; ATTEND Hospitalist
PROC: 0TP98DZ Removal of Intraluminal Device from Ureter, Via Natural or Artificial Opening Endoscopic (ICD-10-PCS; principal; 2025-08-14 13:34)
DX: T83.122A Displacement of indwelling ureteral stent, initial encounter (principal); N13.6 Pyonephrosis; I10 Essential (primary) hypertension; Y83.8 Other surgical procedures as the cause of abnormal reaction of the patient, or of later complication, without mention of misadventure at the time of the procedure; Z87.442 Personal history of urinary calculi; Z90.49 Acquired absence of other specified parts of digestive tract; Z82.49 Family history of ischemic heart disease and other diseases of the circulatory system; Z83.3 Family history of diabetes mellitus; Y92.89 Other specified places as the place of occurrence of the external cause
CPT/HCPCS: 36415; 74176; 80053; 81001; 83605; 85025; 86850; 86900; 86901; 87040; G0378; J2003; J2250; J2405; J2704